=== PATIENT | male | born 1940 ===

== ENCOUNTER 2018-08-31 08:06 | Observation (INO) | payer MEDICAID, OTHER ==
--- NOTE | 2018-08-31 09:07 | ED PDOC ---
Lower Extremity Pain/Injury Time Seen by Provider: 08/31/18 08:25 Chief Complaint (Nursing): Lower Extremity Problem/Injury Chief Complaint (Provider): Lower Extremity Problem/Injury History Per: Patient History/Exam Limitations: no limitations Onset/Duration Of Symptoms: Days (x7) Current Symptoms Are (Timing): Still Present Additional Complaint(s): Patient is a 78 y/o male with a PMHx of asthma who presents to the ED for evaluation of bilateral leg swelling for the past week. Patient states he does not feel pain but reports he has been experiencing a tingling sensation in his feet for a while now. Patient denies recent injury or trauma, travel, hospitalizations, chest pain, SOB, and fever. PCP: None Provided Past Medical History Reviewed: Historical Data, Nursing Documentation, Vital Signs Vital Signs: Last Vital Signs Temp 98.3 F 08/31/18 08:10 Pulse 114 H 08/31/18 08:10 Resp 18 08/31/18 08:10 BP 158/100 H 08/31/18 08:10 Pulse Ox 100 08/31/18 08:10 - Medical History PMH: No Chronic Diseases, Asthma Denies: Chronic Kidney Disease - Surgical History Surgical History: No Surg Hx - Family History Family History: States: Unknown Family Hx - Home Medications Home Medications: Ambulatory Orders Medication Instructions Recorded No Known Home Med 08/31/18 - Allergies Allergies/Adverse Reactions: Allergies Allergy/AdvReac Type Severity Reaction Status Date / Time No Known Allergies Allergy Verified 08/31/18 08:15 Review of Systems ROS Statement: Except As Marked, All Systems Reviewed And Found Negative Constitutional: Negative for: Fever Cardiovascular: Negative for: Chest Pain Respiratory: Negative for: Shortness of Breath Musculoskeletal: Positive for: Other (bilateral leg swelling). Negative for: Foot Pain (but describes a tingling sensation) Physical Exam - Reviewed Nursing Documentation Reviewed: Yes Vital Signs Reviewed: Yes - Physical Exam Appears: Positive for: Non-toxic, No Acute Distress Head Exam: Positive for: ATRAUMATIC, NORMAL INSPECTION, NORMOCEPHALIC Skin: Positive for: Normal Color, Warm, Dry Eye Exam: Positive for: EOMI, Normal appearance, PERRL Neck: Positive for: Normal, Painless ROM, Supple Cardiovascular/Chest: Positive for: Regular Rate, Rhythm. Negative for: Murmur Respiratory: Positive for: Normal Breath Sounds. Negative for: Respiratory Distress Gastrointestinal/Abdominal: Positive for: Normal Exam, Soft. Negative for: Tenderness Back: Positive for: Normal Inspection. Negative for: L CVA Tenderness, R CVA Tenderness, Vertebral Tenderness Extremity: Positive for: Normal ROM, Pedal Edema (below the knee bilaterally), Swelling, Other (old wound scar on center of right oconnell). Negative for: Tenderness (or redness bilaterally on legs and feet) Neurologic/Psych: Positive for: Alert, Oriented. Negative for: Motor/Sensory Deficits - Laboratory Results Result Diagrams: 08/31/18 09:09 08/31/18 09:09 - ECG ECG Rhythm: Positive for: Normal ST Segment, Atrial Fibrillation, Right Bundle Branch Block Interpretation Of Abn EKG: RVR and left axis deviation Rate: 111 O2 Sat by Pulse Oximetry: 100 (RA) Pulse Ox Interpretation: Normal Medical Decision Making Medical Decision Making: Time: 0842 Impression: Bilateral leg swelling. DDx includes but not limited to DVT, dependent edema, and CHF. Plan: EKG BNP BMP CBC CXR Duplex Lower Extremity Vein Bilateral [US] Time: 1019 Extremity US FINDINGS: COMMON FEMORAL VEIN: Right CFV: Unremarkable. Left CFV: Unremarkable. SUPERFICIAL FEMORAL VEIN: Right SFV: Unremarkable. Left SFV: Unremarkable. POPLITEAL VEIN: Right Popliteal: Unremarkable. Left Popliteal: Unremarkable. POSTERIOR TIBIAL VEIN: Right PTV: Unremarkable. Left PTV: Unremarkable. OTHER FINDINGS: None. IMPRESSION: No evidence of deep venous thrombosis in the right or left lower extremity. Time: 1137 CXR FINDINGS: LUNGS: No active pulmonary disease. PLEURA: No significant pleural effusion identified. No pneumothorax apparent. CARDIOVASCULAR: No aortic atherosclerotic calcification present. Cardiomegaly. Mild congestive change. OSSEOUS STRUCTURES: No significant abnormalities. VISUALIZED UPPER ABDOMEN: Normal. OTHER FINDINGS: None. IMPRESSION: Cardiomegaly. No infiltrate. 1300 EKG, Labs, and CXR reviewed. Case discussed with Dr Israel. Impression Afib with RVR, leg swelling, r/o CHF, new onset Afib Scribe Attestation: Documented by Francisco Mccullough, acting as a scribe for Monica Son MD. Provider Scribe Attestation: All medical record entries made by the Scribe were at my direction and personally dictated by me. I have reviewed the chart and agree that the record accurately reflects my personal performance of the history, physical exam, medic al decision making, and the department course for this patient. I have also personally directed, reviewed, and agree with the discharge instructions and disposition. Disposition - Clinical Impression Clinical Impression: Atrial fibrillation with RVR, Leg swelling - Patient ED Disposition Is Patient to be Admitted: Yes Discussed With DrNighat: Elizabeth Israel Counseled Patient/Family Regarding: Studies Performed, Diagnosis - Disposition Disposition Time: 13:00 Condition: FAIR - Pt Status Changed To: Hospital Disposition Of: Observation - POA Present On Arrival: None
[2018-08-31 09:31] LABS: BASO # 0.1 K/uL (0.0-0.2); BASO % 1.3 % (0.0-2.0); EOS # 0.2 K/uL (0.0-0.7); EOS % 3.8 % (0.0-4.0); HEMOGLOBIN 13.5 g/dL (12.0-18.0); LYMPH % 25.6 % (20.0-40.0); MEAN CELL VOLUME 98.3 fl (80.0-94.0); MEAN CORPUSCULAR HEMOGLOBIN 32.6 pg (27.0-31.0); MEAN CORPUSCULAR HGB CONC 33.2 g/dL (33.0-37.0); MEAN PLATELET VOLUME 8.7 fl (7.2-11.7); MONO # 0.5 K/uL (0.0-0.8); MONO % 11.6 % (0.0-10.0); NEUT # 2.4 K/uL (1.8-7.0); NEUT % 57.7 % (50.0-75.0); NRBC % 0.2 % (0.0-0.0); RBC 4.13 Mil/uL (4.40-5.90); RED CELL DISTRIBUTION WIDTH 15.2 % (11.5-14.5); WHITE BLOOD COUNT 4.1 K/uL (4.8-10.8)
[2018-08-31 09:36] LABS: INR 1.4; PROTHROMBIN TIME 16.1 Seconds (9.8-13.1)
[2018-08-31 09:38] LABS: PARTIAL THROMBOPLASTIN TIME 34.3 Seconds (25.6-37.1)
[2018-08-31 09:40] LABS: BLOOD UREA NITROGEN 13 mg/dl (9-20); CALCIUM 9.1 mg/dL (8.4-10.2); GFR NON-AFRICAN AMERICAN > 60
[2018-08-31 09:52] LABS: B-TYPE NATRIURETIC PEPTIDE 939 pg/ml (0-900)
--- NOTE | 2018-08-31 10:04 | CARD ---
APPROVED REPORT Date of service: 08/31/2018 EKG Measurement Heart [id number] <Conclusion> Atrial fibrillation with rapid ventricular response with premature ventricular or aberrantly conducted complexes Left axis deviation Right bundle branch block Abnormal ECG
--- NOTE | 2018-08-31 10:23 | US ---
Date of service: 08/31/2018 PROCEDURE: Bilateral lower extremity venous duplex Doppler. HISTORY: bilateral lower leg swelling R>L COMPARISON: None available. TECHNIQUE: Bilateral common femoral, superficial femoral, popliteal and posterior tibial veins were evaluated. Flow was assessed with color Doppler, compressibility, assessment of phasic flow and augmentation response. FINDINGS: COMMON FEMORAL VEIN: Right CFV: Unremarkable. Left CFV: Unremarkable. SUPERFICIAL FEMORAL VEIN: Right SFV: Unremarkable. Left SFV: Unremarkable. POPLITEAL VEIN: Right Popliteal: Unremarkable. Left Popliteal: Unremarkable. POSTERIOR TIBIAL VEIN: Right PTV: Unremarkable. Left PTV: Unremarkable. OTHER FINDINGS: None. IMPRESSION: No evidence of deep venous thrombosis in the right or left lower extremity..
--- NOTE | 2018-08-31 11:41 | RAD ---
Date of service: 08/31/2018 HISTORY: CHF COMPARISON: No prior. TECHNIQUE: 09/21/2012 FINDINGS: LUNGS: No active pulmonary disease. PLEURA: No significant pleural effusion identified. No pneumothorax apparent. CARDIOVASCULAR: No aortic atherosclerotic calcification present. Cardiomegaly. Mild congestive change. OSSEOUS STRUCTURES: No significant abnormalities. VISUALIZED UPPER ABDOMEN: Normal. OTHER FINDINGS: None. IMPRESSION: Cardiomegaly. No infiltrate.
[2018-08-31] MEDS ORDERED: Metoprolol 1 mg/ml Inj IVP ONE ×2 (12:27→13:59)
[2018-08-31] MEDS ORDERED: Enoxaparin 60 mg Syringe SC STA (12:30)
[2018-08-31] MEDS ORDERED: Enoxaparin 80 mg Syringe SC STA (12:39)
[2018-08-31] MEDS ORDERED: Metoprolol 1 mg/ml Inj ONE ×2 (12:59→13:01)
--- NOTE | 2018-08-31 13:31 | CP.PCM.HP ---
<Sultan Comfort - Last Filed: 08/31/18 14:53> History of Present Illness - History of Present Illness History of Present Illness: Dieudonne Dominguez [id number] Chief complaints: bilateral lower leg swelling HPI: 78 year old male with PMHx asthma presents to emergency department for evaluation of B/L lower leg swelling for 10 days associate tingling sensation of B/L feet for many months. Patient is a poor historian and very difficult to obtain information. Patient admits to have dyspnea with walking for several years now but unable to say how much he can walk before develops shortness of breath. Denies any history of heart problems and denies seeing any doctor since he immigrated from [place] in . As per [facility] record, patient was seen by Dr. Jackson (Personnel Security Assistant) in 2013 but patient does not recall. Patient denies any orthopnea or PND. Denies any chest pain, cough, headache, dizziness, nausea, vomiting, fever or chills. ROS: All 12 systems reviewed and negative except as mentioned above PMD: none PMHx: Asthma Surgery hx: denies Social hx: lives alone. Denies smoking cigarettes, drinking EtOH or using drugs. Family hx: denies any significant family hx Allergies: denies Medications: none ED course: Vitals: BP 158/100, HR 114, RR 18, Temp 98.3, pulse ox 100% CBC, BMP and TSH: unremarkable proBNP: 939 ECG: Afib @111 bpm with RVR, RBBB CXR: cardiomegaly, no infiltrate B/L LE US: neg for DVT echo: pending result Patient received Lopressor 5 mg ivp, lasix 20 mg ivp AND Lovenox 70 mg SC Present on Admission - Present on Admission Any Indicators Present on Admission: No Review of Systems - Review of Systems Review of Systems: All 12 systems reviewed and negative except as mentioned in HPI Past Patient History - Past Social History Smoking Status: Never Smoked - CARDIAC Hx Cardiac Disorders: No - PULMONARY Hx Asthma: Yes - NEUROLOGICAL Hx Neurological Disorder: No - HEENT Hx HEENT Problems: No - RENAL Hx Chronic Kidney Disease: No - ENDOCRINE/METABOLIC Hx Endocrine Disorders: No - HEMATOLOGICAL/ONCOLOGICAL Hx Blood Disorders: No - INTEGUMENTARY Hx Dermatological Problems: No - MUSCULOSKELETAL/RHEUMATOLOGICAL Hx Musculoskeletal Disorders: No - GASTROINTESTINAL Hx Gastrointestinal Disorders: No - GENITOURINARY/GYNECOLOGICAL Hx Genitourinary Disorders: No - PSYCHIATRIC Hx Psychophysiologic Disorder: No Hx Substance Use: No - SURGICAL HISTORY Hx Surgeries: No - ANESTHESIA Hx Anesthesia: No Meds Allergies/Adverse Reactions: Allergies Allergy/AdvReac Type Severity Reaction Status Date / Time No Known Allergies Allergy Verified 08/31/18 08:15 Physical Exam - Constitutional Appears: Non-toxic, No Acute Distress - Head Exam Head Exam: NORMAL INSPECTION - Eye Exam Eye Exam: Normal appearance - ENT Exam ENT Exam: Mucous Membranes Moist, Normal Oropharynx - Neck Exam Neck exam: Positive for: Full Rom, Normal Inspection - Respiratory Exam Respiratory Exam: Clear to Auscultation Bilateral, NORMAL BREATHING PATTERN. absent: Rhonchi, Wheezes - Cardiovascular Exam Cardiovascular Exam: Irregular Rhythm, +S1, +S2 - GI/Abdominal Exam GI & Abdominal Exam: Normal Bowel Sounds, Soft. absent: Tenderness - Extremities Exam Extremities exam: Negative for: calf tenderness Additional comments: B/L lower extremities swelling 2+ with changes in skin color. Has old healing ulcer on right mid oconnell. Faint pedal pulses. No signs of infection. - Back Exam Back exam: NORMAL INSPECTION - Neurological Exam Neurological exam: Alert, Oriented x3 - Psychiatric Exam Psychiatric exam: Normal Affect, Normal Mood - Skin Skin Exam: Dry, Warm Results - Vital Signs Recent Vital Signs: Last Vital Signs Temp 98.3 F 08/31/18 08:10 Pulse 115 H 08/31/18 13:16 Resp 34 H 08/31/18 13:08 BP 133/92 H 08/31/18 13:23 Pulse Ox 95 08/31/18 13:08 - Labs Result Diagrams: 08/31/18 09:09 08/31/18 09:09 Labs: Laboratory Results - last 24 hr 08/31/18 08/31/18 08/31/18 09:08 09:09 09:09 WBC 4.1 L RBC 4.13 L Hgb 13.5 Hct 40.6 MCV 98.3 H MCH 32.6 H MCHC 33.2 RDW 15.2 H Plt Count 184 MPV 8.7 Neut % (Auto) 57.7 Lymph % (Auto) 25.6 [place] % (Auto) 11.6 H Eos % (Auto) 3.8 Baso % (Auto) 1.3 Neut # (Auto) 2.4 Lymph # (Auto) 1.0 Armstrong # (Auto) 0.5 Eos # (Auto) 0.2 Baso # (Auto) 0.1 PT 16.1 H INR 1.4 APTT 34.3 Sodium 139 Potassium 4.3 Chloride 99 Carbon Dioxide 27 Anion Gap 17 BUN 13 Creatinine 0.7 L Est GFR ( Amer) > 60 Est GFR (Non-Af Amer) > 60 Random Glucose 99 Calcium 9.1 Troponin I 0.0330 NT-Pro-B Natriuret Pep 939 H TSH 3rd Generation 08/31/18 11:55 WBC RBC Hgb Hct MCV MCH MCHC RDW Plt Count MPV Neut % (Auto) Lymph % (Auto) [place] % (Auto) Eos % (Auto) Baso % (Auto) Neut # (Auto) Lymph # (Auto) [place] # (Auto) Eos # (Auto) Baso # (Auto) PT INR APTT Sodium Potassium Chloride Carbon Dioxide Anion Gap BUN Creatinine Est GFR ( Amer) Est GFR (Non-Af Amer) Random Glucose Calcium Troponin I NT-Pro-B Natriuret Pep TSH 3rd Generation 3.51 Assessment & Plan - Assessment and Plan (Free Text) Assessment: 78 year old male with PMHx asthma presents to emergency department for evaluation of B/L lower leg swelling for 10 days associate tingling sensation of B/L feet for many months. Patient admits to have dyspnea with walking for several years now but unable to say how much he can walk before develops dyspnea. in the ER, patient is found to have atrial fibrillation w/ RVR and has elevated proBNP. Patient is admitted for acute CHF exacerbation and new onset atrial fibrillation. New onset atrial fibrillation -Admit to tele -Cardiology consult- Dr. Laboy, recs appreciated. -s/p Lopressor 5 mg ivp, lasix 20 mg ivp AND Lovenox 70 mg SC -start Metoprolol 25 mg q8 -c/w Lovenox 70 mg sc Q12hr Acute new onset CHF exacerbation -No prior echo to compare -S/p lasix 20 mg IVP once in ED -c/w Lasix 20 mg IVP qd -f/u echo B/L lower leg edema -US LE: neg for DVT -likely secondary to CHF exacerbation -c/w Lasix 20 mg ivp Asthma, mild intermittent -controlled -Duonex q4h prn Diet -Heart healthy diet DVT Prophylaxis: -patient is on lovenox 70 mg sc q12h for afib Code status -Full code <Elizabeth Israel - Last Filed: 08/31/18 18:53> Results - Vital Signs Recent Vital Signs: Last Vital Signs Temp 97.9 F 08/31/18 16:16 Pulse 99 H 08/31/18 17:58 Resp 18 08/31/18 17:15 BP 130/95 H 08/31/18 17:58 Pulse Ox 96 08/31/18 17:15 - Labs Result Diagrams: 08/31/18 09:09 08/31/18 09:09 Labs: Laboratory Results - last 24 hr 08/31/18 08/31/18 08/31/18 09:08 09:09 09:09 WBC 4.1 L RBC 4.13 L Hgb 13.5 Hct 40.6 MCV 98.3 H MCH 32.6 H MCHC 33.2 RDW 15.2 H Plt Count 184 MPV 8.7 Neut % (Auto) 57.7 Lymph % (Auto) 25.6 Armstrong % (Auto) 11.6 H Eos % (Auto) 3.8 Baso % (Auto) 1.3 Neut # (Auto) 2.4 Lymph # (Auto) 1.0 Armstrong # (Auto) 0.5 Eos # (Auto) 0.2 Baso # (Auto) 0.1 PT 16.1 H INR 1.4 APTT 34.3 Sodium 139 Potassium 4.3 Chloride 99 Carbon Dioxide 27 Anion Gap 17 BUN 13 Creatinine 0.7 L Est GFR ( Amer) > 60 Est GFR (Non-Af Amer) > 60 Random Glucose 99 Calcium 9.1 Troponin I 0.0330 NT-Pro-B Natriuret Pep 939 H TSH 3rd Generation 08/31/18 11:55 WBC RBC Hgb Hct MCV MCH MCHC RDW Plt Count MPV Neut % (Auto) Lymph % (Auto) Armstrong % (Auto) Eos % (Auto) Baso % (Auto) Neut # (Auto) Lymph # (Auto) Armstrong # (Auto) Eos # (Auto) Baso # (Auto) PT INR APTT Sodium Potassium Chloride Carbon Dioxide Anion Gap BUN Creatinine Est GFR ( Amer) Est GFR (Non-Af Amer) Random Glucose Calcium Troponin I NT-Pro-B Natriuret Pep TSH 3rd Generation 3.51 Attending/Attestation - Attestation I have personally seen and examined this patient.: Yes I have fully participated in the care of the patient.: Yes I have reviewed all pertinent clinical information: Yes Notes (Text): 08/31/18 18:45 78 year old male very poor historian, not forthcoming with history presents with a vague history of dyspnea on exertion, as well as "asthma." Patient was found to be in new onset? AFIB, with significant bilateral lower extremity edema. ECHO showed severe cardiomyopathy, Cardio consult ordered, patient being diuresed, fully anticoagulated.
[2018-08-31] MEDS ORDERED: Albuterol 0.083% Inhal Sol (2.5 mg/3 mL) UD INH PRN (15:03)
--- NOTE | 2018-08-31 15:35 | CP.PCM.CON ---
History of Present Illness - History of Present Illness History of Present Illness: PT PRESENTED FOR KAYA. DENIES CP, PALP, LH, SOB, ORTHOPNEA, PND. NOTED TO BE IN RAPID AFIB ON ADMISSION. EXAM REVEALS BIBASILAR CRACKLES AND MULTIPLE SYSTOLIC MURMURS AT LLSB AND APEX. APEX IS DISPLACED LATERALLY AND POSTERIORLY. THERE IS A CONTINUOUS LOW PITCHED MURMUR HEARD AT THE LLSB WELL. 2 PLUS EDEMA. EKG SHOWS AFIB W RVR. Review of Systems - Review of Systems Systems not reviewed;Unavailable: Uncooperative, Language Barrier Past Patient History - Tetanus Immunizations Tetanus Immunization: Unknown - Past Medical History & Family History Past Medical History?: No - Past Social History Smoking Status: Never Smoked - CARDIAC Hx Cardiac Disorders: No - PULMONARY Hx Asthma: Yes - NEUROLOGICAL Hx Neurological Disorder: No - HEENT Hx HEENT Problems: No - RENAL Hx Chronic Kidney Disease: No - ENDOCRINE/METABOLIC Hx Endocrine Disorders: No - HEMATOLOGICAL/ONCOLOGICAL Hx Blood Disorders: No - INTEGUMENTARY Hx Dermatological Problems: No - MUSCULOSKELETAL/RHEUMATOLOGICAL Hx Musculoskeletal Disorders: No - GASTROINTESTINAL Hx Gastrointestinal Disorders: No - GENITOURINARY/GYNECOLOGICAL Hx Genitourinary Disorders: No - PSYCHIATRIC Hx Psychophysiologic Disorder: No Hx Substance Use: No - SURGICAL HISTORY Hx Surgeries: No - ANESTHESIA Hx Anesthesia: No Meds Allergies/Adverse Reactions: Allergies Allergy/AdvReac Type Severity Reaction Status Date / Time No Known Allergies Allergy Verified 08/31/18 08:15 - Medications Medications: Current Medications Enoxaparin Sodium (Lovenox) 70 mg SC Q12 [facility]; Protocol Furosemide (Lasix) 20 mg IVP DAILY [facility] Metoprolol Tartrate (Lopressor) 25 mg PO Q8 [facility] Last Admin: 08/31/18 14:48 Dose: 25 mg Physical Exam - Constitutional Appears: Non-toxic - Head Exam Head Exam: ATRAUMATIC, NORMAL INSPECTION, NORMOCEPHALIC - Eye Exam Eye Exam: EOMI, Normal appearance, PERRL Pupil Exam: NORMAL ACCOMODATION, PERRL - ENT Exam ENT Exam: Mucous Membranes Moist, Normal Exam - Neck Exam Neck exam: Positive for: Normal Inspection - Respiratory Exam Respiratory Exam: Rales - Cardiovascular Exam Cardiovascular Exam: Irregular Rhythm, +S1, +S2, Systolic Murmur - GI/Abdominal Exam GI & Abdominal Exam: Normal Bowel Sounds, Soft. absent: Tenderness - Rectal Exam Rectal Exam: Deferred - Extremities Exam Extremities exam: Positive for: pedal edema - Back Exam Back exam: NORMAL INSPECTION - Neurological Exam Neurological exam: Alert, CN II-XII Intact, Normal Gait, Oriented x3, Reflexes Normal - Psychiatric Exam Psychiatric exam: Normal Affect, Normal Mood - Skin Skin Exam: Dry, Intact, Normal Color, Warm Results - Vital Signs Recent Vital Signs: Last Vital Signs Temp 98.3 F 08/31/18 08:10 Pulse 104 H 08/31/18 14:48 Resp 34 H 08/31/18 13:08 BP 108/86 08/31/18 14:48 Pulse Ox 100 08/31/18 14:16 - Labs Result Diagrams: 08/31/18 09:09 08/31/18 09:09 Labs: Laboratory Results - last 24 hr 08/31/18 08/31/18 08/31/18 09:08 09:09 09:09 WBC 4.1 L RBC 4.13 L Hgb 13.5 Hct 40.6 MCV 98.3 H MCH 32.6 H MCHC 33.2 RDW 15.2 H Plt Count 184 MPV 8.7 Neut % (Auto) 57.7 Lymph % (Auto) 25.6 [place] % (Auto) 11.6 H Eos % (Auto) 3.8 Baso % (Auto) 1.3 Neut # (Auto) 2.4 Lymph # (Auto) 1.0 [place] # (Auto) 0.5 Eos # (Auto) 0.2 Baso # (Auto) 0.1 PT 16.1 H INR 1.4 APTT 34.3 Sodium 139 Potassium 4.3 Chloride 99 Carbon Dioxide 27 Anion Gap 17 BUN 13 Creatinine 0.7 L Est GFR ( Amer) > 60 Est GFR (Non-Af Amer) > 60 Random Glucose 99 Calcium 9.1 Troponin I 0.0330 NT-Pro-B Natriuret Pep 939 H TSH 3rd Generation 08/31/18 11:55 WBC RBC Hgb Hct MCV MCH MCHC RDW Plt Count MPV Neut % (Auto) Lymph % (Auto) [place] % (Auto) Eos % (Auto) Baso % (Auto) Neut # (Auto) Lymph # (Auto) [place] # (Auto) Eos # (Auto) Baso # (Auto) PT INR APTT Sodium Potassium Chloride Carbon Dioxide Anion Gap BUN Creatinine Est GFR ( Amer) Est GFR (Non-Af Amer) Random Glucose Calcium Troponin I NT-Pro-B Natriuret Pep TSH 3rd Generation 3.51 Assessment & Plan (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 BB FOR HR CONTROL. ECHO IMAGES REVIEWED. SEVERE BIATRIAL ENLARGE. SEVERE MR, TR AND MILD AI. ASD WITH LEFT TO RIGHT SHUNT. BUBBLE STUDY POSITIVE. NML EF
[2018-08-31] MEDS ORDERED: Influenza Vaccine (5 YR UP)/PF 60 MCG/0.5 ML SYR IM ONE (16:31)
[2018-08-31] MEDS ORDERED: Pneumococcal 23-Valent Vaccine IM ONE (16:31)
[2018-08-31] MEDS ORDERED: Influenza Vaccine 60 mcg/0.5 mL SYR (4YR UP) IM ONE (16:45)
[2018-08-31] MEDS ORDERED: Metoprolol 1 mg/ml Inj IVP STA (17:29)
--- NOTE | 2018-08-31 20:02 | CARD ---
APPROVED REPORT Date of service: 08/31/2018 EXAM: Two-dimensional and M-mode echocardiogram with Doppler and color Doppler. Other Information Quality : ExcellentRhythm : Atrial Fibrillation INDICATION Congestive Heart Failure 2D DIMENSIONS IVSd1.14 (0.7-1.1cm)LVDd4.50 (3.9-5.9cm) LVOT Diameter1.98 (1.8-2.4cm)PWd1.23 (0.7-1.1cm) IVSs1.46 (0.8-1.2cm)LVDs4.16 (2.5-4.0cm) FS (%) 7.5 %PWs1.17 (0.8-1.2cm) M-Mode DIMENSIONS Left Atrium (MM)8.11 (2.5-4.0cm)IVSd0.89 (0.7-1.1cm) Aortic Root2.71 (2.2-3.7cm)LVDd5.39 (4.0-5.6cm) Aortic Cusp Exc.2.02 (1.5-2.0cm)PWd1.22 (0.7-1.1cm) IVSs1.39 cmFS (%) 23 % LVDs4.17 (2.0-3.8cm)PWs1.32 cm Aortic Valve AoV Peak Odkudhrw290.6cm/sAoV VTI23.9cmAO Peak GR.6mmHg LVOT Peak Bnslcyax08.3cm/sLVOT VTI10.40cmAO Mean GR.4mmHg JULIO (VMAX)1.01sd1LVK (VTI)0.84fi4YV P 1/2 Luui529gt Mitral Valve E/A ratio0.0 TDI E/Lateral E'0.0E/Medial E'0.0 Tricuspid Valve TR Peak [id number]/sRAP [id number] Peak Gr.28mmHg [id number] LEFT VENTRICLE The left ventricle is normal size. There is normal left ventricular wall thickness. The left ventricular systolic function is normal. The estimated ejection fraction is 50-55% No regional wall motion abnormalities noted.. The left ventricular diastolic function cannot be assessed due to underlying atrial fibrillation. No left ventricle thrombus noted on this study. There is no ventricular septal defect visualized. There is no left ventricular aneurysm. There is no mass noted in the left ventricle. RIGHT VENTRICLE The right ventricle is normal size. There is normal right ventricular wall thickness. The right ventricular systolic function is normal. ATRIA The left atrium size is severely dilated. The right atrium size is severely dilated. The interatrial septum has large septum secundum defect, that is demonstraed on color and agitated saline contrast. AORTIC VALVE The aortic valve is normal in structure. Mild to moderate aortic regurgitation is present. There is no aortic valvular stenosis. There is no aortic valvular vegetation. MITRAL VALVE The mitral valve is normal in structure. There is no evidence of mitral valve prolapse. There is no mitral valve stenosis. There is severe eccentric mitral valve regurgitation noted. TRICUSPID VALVE The tricuspid valve is normal in structure. There is severe tricuspid valve regurgitation noted. RVSP is likely underestimated at 33 mm Hg. There is no tricuspid valve prolapse or vegetation. There is no tricuspid valve stenosis. PULMONIC VALVE The pulmonary valve is normal in structure. There is no pulmonic valvular regurgitation. There is no pulmonic valvular stenosis. GREAT VESSELS The aortic root is normal in size. The ascending aorta is normal in size. The pulmonary artery is normal. The IVC is not visualized. PERICARDIAL EFFUSION There is small pericardial effusion. There is no pleural effusion. <Conclusion> The estimated ejection fraction is 50-55% The left ventricular diastolic function cannot be assessed due to underlying atrial fibrillation. The left atrium size is severely dilated. The right atrium size is severely dilated. The interatrial septum has large septum secundum defect, that is demonstraed on color doppler and agitated saline contrast with predominant left to right shunt. Mild to moderate aortic regurgitation is present. There is severe eccentric mitral valve regurgitation noted. There is severe tricuspid valve regurgitation noted. RVSP is likely underestimated at 33 mm Hg. The IVC is not visualized.
[2018-08-31] MEDS: Enoxaparin 80 mg Syringe SC SCH (21:01)
[2018-09-01 05:25] LABS: HEMOGLOBIN 12.8 g/dL (12.0-18.0); MEAN CELL VOLUME 99.5 fl (80.0-94.0); MEAN CORPUSCULAR HEMOGLOBIN 32.6 pg (27.0-31.0); MEAN CORPUSCULAR HGB CONC 32.8 g/dL (33.0-37.0); RBC 3.91 Mil/uL (4.40-5.90); RED CELL DISTRIBUTION WIDTH 15.5 % (11.5-14.5); WHITE BLOOD COUNT 3.8 K/uL (4.8-10.8)
[2018-09-01 05:32] LABS: ALBUMIN 3.7 g/dL (3.5-5.0); ALT/SGPT 31 U/L (21-72); AST/SGOT 35 U/L (17-59); BLOOD UREA NITROGEN 14 mg/dl (9-20); GFR NON-AFRICAN AMERICAN > 60
[2018-09-01] MEDS: Enoxaparin 80 mg Syringe SC SCH (08:32)
--- NOTE | 2018-09-01 10:04 | CP.PCM.PN ---
Subjective - Date & Time of Evaluation Date of Evaluation: 09/01/18 Time of Evaluation: 09:50 - Subjective Subjective: Patient seen and examined this morning. No acute overnight events. Telemetry shows atrial fibrillation with rates in 80-100s. Patient continues to be worried about is legs swelling but unaware of his heart issues. Denies any chest pain, dyspnea, abdominal pain, nausea, vomiting or dizziness. Objective - Vital Signs/Intake and Output Vital Signs (last 24 hours): Temp Pulse Resp BP Pulse Ox 97.7 F 82 18 115/80 97 09/01/18 08:00 09/01/18 08:33 09/01/18 08:00 09/01/18 08:36 09/01/18 08:00 - Medications Medications: Current Medications Enoxaparin Sodium (Lovenox) 70 mg SC Q12 [facility]; Protocol Last Admin: 09/01/18 08:32 Dose: 70 mg Furosemide (Lasix) 40 mg IVP Q12 [facility] Last Admin: 09/01/18 08:36 Dose: 40 mg Lisinopril (Zestril) 20 mg PO DAILY [facility] Last Admin: 09/01/18 08:32 Dose: 20 mg Metoprolol Tartrate (Lopressor) 25 mg PO Q12 [facility] Last Admin: 09/01/18 08:33 Dose: 25 mg - Labs Labs: 09/01/18 04:05 09/01/18 04:05 PT 16.1 Seconds (9.8-13.1) H 08/31/18 09:08 INR 1.4 08/31/18 09:08 APTT 34.3 Seconds (25.6-37.1) 08/31/18 09:08 - Constitutional Appears: No Acute Distress, Older Than Stated Age - Head Exam Head Exam: NORMAL INSPECTION - Eye Exam Eye Exam: Normal appearance - ENT Exam ENT Exam: Mucous Membranes Moist - Neck Exam Neck Exam: Full ROM, Normal Inspection - Respiratory Exam Additional comments: Crackles on B/L lower lung field - Cardiovascular Exam Cardiovascular Exam: Irregular Rhythm, +S1, +S2, Murmur - GI/Abdominal Exam GI & Abdominal Exam: Soft, Normal Bowel Sounds. absent: Tenderness - Extremities Exam Additional comments: B/L lower extremities swelling 2+ with changes in skin color. Has old healing ulcer on right mid oconnell. Faint pedal pulses. No signs of infection. - Neurological Exam Neurological Exam: Alert, Awake - Skin Skin Exam: Dry, Warm Assessment and Plan - Assessment and Plan (Free Text) Assessment: 78 year old male with PMHx asthma presents to emergency department for evaluation of B/L lower leg swelling for 10 days associate tingling sensation of B/L feet for many months. Patient admits to have dyspnea with walking for several years now but unable to say how much he can walk before develops dysp silke. in the ER, patient is found to have atrial fibrillation w/ RVR and has elevated proBNP. Patient is admitted for acute CHF exacerbation and new onset atrial fibrillation. New onset atrial fibrillation -Admit to tele -Cardiology consult- Dr. Laboy, recs appreciated. -s/p Lopressor 5 mg ivp, lasix 20 mg ivp AND Lovenox 70 mg SC in ED -c/w Metoprolol 25 mg q12 -c/w Lisinopril 20 mg po daily -c/w Lovenox 70 mg sc Q12hr Acute new onset CHF exacerbation -No prior echo to compare -Pro BNP: 939 -S/p lasix 20 mg IVP once in ED -c/w Lasix 40 mg IVP q12 -c/w Lisinopril 20 mg po daily -ECHO--conclusion: EF 50-55%. Left atrium is severely dilated. Right atrium is severely dilated. 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 Mild to moderate aortic regurgitation is present. There i severe eccentric mitral valve regurgitation noted. There is severe tricuspid valve regurgitation noted. RVSP is likely underestimated at 33 mm Hg. B/L lower leg edema -US LE: neg for DVT -likely secondary to CHF exacerbation -c/w Lasix 40 mg ivp q12 hrs Asthma, mild intermittent -controlled -Duonex q4h prn Diet -Heart healthy diet DVT Prophylaxis: -patient is on lovenox 70 mg sc q12h for afib Code status -Full code Plan discussed with Dr. Aldridge
[2018-09-01 12:55] LABS: HDL CHOLESTEROL 40 MG/DL (30-70)
[2018-09-01 13:06] LABS: LDL CHOLESTEROL 70 mg/dL (0-129)
--- NOTE | 2018-09-01 15:03 | CP.PCM.DIS ---
Provider - Provider Date of Admission: 08/31/18 12:28 Attending physician: Elizabeth Israel DO Consults: 08/31/18 13:41 Cardiology Consult Stat Comment: Consulting Provider: Kostas Laboy Consulting Physician: Kostas Laboy Reason for Consult: new onset A-fib, cardiomegaly on CXR 08/31/18 18:15 Wound Care [Nursing Referral for Wound Care] Routine Comment: Physician Instructions: Reason For Exam: right lower calf scab Time Spent in preparation of Discharge (in minutes): 30 Diagnosis - Discharge Diagnosis (1) Atrial fibrillation with RVR Status: Acute (2) CHF due to valvular disease Status: Acute (3) ASD secundum Status: Chronic (4) Aortic insufficiency Status: Chronic (5) Biatrial enlargement Status: Chronic (6) Enlarged RV (right ventricle) Status: Chronic (7) Leg swelling Status: Chronic (8) Mitral regurgitation Status: Chronic (9) Tricuspid regurgitation Status: Chronic Hospital Course - Lab Results Lab Results: Most Recent Lab Values WBC 3.8 K/uL (4.8-10.8) L 09/01/18 04:05 RBC 3.91 Mil/uL (4.40-5.90) L 09/01/18 04:05 Hgb 12.8 g/dL (12.0-18.0) 09/01/18 04:05 Hct 38.9 % (35.0-51.0) 09/01/18 04:05 MCV 99.5 fl (80.0-94.0) H 09/01/18 04:05 MCH 32.6 pg (27.0-31.0) H 09/01/18 04:05 MCHC 32.8 g/dL (33.0-37.0) L 09/01/18 04:05 RDW 15.5 % (11.5-14.5) H 09/01/18 04:05 Plt Count 169 K/uL (130-400) 09/01/18 04:05 MPV 8.7 fl (7.2-11.7) 08/31/18 09:09 Neut % (Auto) 57.7 % (50.0-75.0) 08/31/18 09:09 Lymph % (Auto) 25.6 % (20.0-40.0) 08/31/18 09:09 Stone % (Auto) 11.6 % (0.0-10.0) H 08/31/18 09:09 Eos % (Auto) 3.8 % (0.0-4.0) 08/31/18 09:09 Baso % (Auto) 1.3 % (0.0-2.0) 08/31/18 09:09 Neut # (Auto) 2.4 K/uL (1.8-7.0) 08/31/18 09:09 Lymph # (Auto) 1.0 K/uL (1.0-4.3) 08/31/18 09:09 Stone # (Auto) 0.5 K/uL (0.0-0.8) 08/31/18 09:09 Eos # (Auto) 0.2 K/uL (0.0-0.7) 08/31/18 09:09 Baso # (Auto) 0.1 K/uL (0.0-0.2) 08/31/18 09:09 PT 16.1 Seconds (9.8-13.1) H 08/31/18 09:08 INR 1.4 08/31/18 09:08 APTT 34.3 Seconds (25.6-37.1) 08/31/18 09:08 Sodium 138 mmol/l (132-148) 09/01/18 04:05 Potassium 3.7 MMOL/L (3.6-5.0) 09/01/18 04:05 Chloride 95 mmol/L (98-107) L 09/01/18 04:05 Carbon Dioxide 30 mmol/L (22-30) 09/01/18 04:05 Anion Gap 17 (10-20) 09/01/18 04:05 BUN 14 mg/dl (9-20) 09/01/18 04:05 Creatinine 0.9 mg/dl (0.8-1.5) 09/01/18 04:05 Est GFR ( Amer) > 60 09/01/18 04:05 Est GFR (Non-Af Amer) > 60 09/01/18 04:05 Random Glucose 98 mg/dL (75-110) 09/01/18 04:05 Hemoglobin A1c 5.8 % (4.2-6.5) 08/31/18 09:00 Calcium 9.0 mg/dL (8.4-10.2) 09/01/18 04:05 Phosphorus 4.0 mg/dl (2.5-4.5) 09/01/18 04:05 Magnesium 1.7 MG/DL (1.6-2.3) 09/01/18 04:05 Total Bilirubin 1.7 mg/dl (0.2-1.3) H 09/01/18 04:05 AST 35 U/L (17-59) 09/01/18 04:05 ALT 31 U/L (21-72) 09/01/18 04:05 Alkaline Phosphatase 61 U/L (38-126) 09/01/18 04:05 Troponin I 0.0380 ng/mL (0.00-0.120) 08/31/18 21:59 NT-Pro-B Natriuret Pep 939 pg/ml (0-900) H 08/31/18 09:09 Total Protein 7.3 G/DL (6.3-8.2) 09/01/18 04:05 Albumin 3.7 g/dL (3.5-5.0) 09/01/18 04:05 Globulin 3.6 gm/dL (2.2-3.9) 09/01/18 04:05 Albumin/Globulin Ratio 1.0 (1.0-2.1) 09/01/18 04:05 Triglycerides 72 mg/DL (0-149) 09/01/18 12:46 Cholesterol 127 mg/dL (0-199) 09/01/18 12:46 LDL Cholesterol Direct 70 mg/dL (0-129) 09/01/18 12:46 HDL Cholesterol 40 MG/DL (30-70) 09/01/18 12:46 TSH 3rd Generation 3.51 mIU/ML (0.46-4.68) 08/31/18 11:55 - Hospital Course Hospital Course: 78 year old male with PMHx asthma presents to emergency department yesterday for evaluation of B/L lower leg swelling for 10 days associate tingling sensation of B/L feet for many months. Patient admits to have dyspnea with walking for several years now but unable to say how much he can walk before develops dyspnea. in the ER, patient is found to have atrial fibrillation w/ RVR and has elevated proBNP. Patient is admitted for acute CHF exacerbation and new onset atrial fibrillation. This morning, patient continues to report tingling of B/L lower leg. Denies any chest pain, dyspnea, cough or dizziness. Patient's afib rate was controlled with Lopressor 5 mg IVP x 2 and received Metoprolol 25 mg q12. Patient received Lasix 40 mg ivp Q12 hours and leg edema and crackles on lungs improved. Patient is hemodynamically stable to discharge home. Has appointment with Dr. Jain at [facility] on 09/09/18 at 3:20 pm. Patient was given a rx of BMP to check his electrolytes before going to see PMD. Advised to f/u with assistant speech language pathologist in 1 week. -ECHOCARDIOGRAM (08/31/18)-conclusion: EF 50-55%. Left atrium is severely dilated. Right atrium is severely dilated. 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 Mild to moderate aortic regurgitation is present. There i severe eccentric mitral valve regurgitation noted. There is sev ere tricuspid valve regurgitation noted. RVSP is likely underestimated at 33 mm Hg. Discharge Exam - Head Exam Head Exam: NORMAL INSPECTION - Eye Exam Eye Exam: Normal appearance - ENT Exam ENT Exam: Mucous Membranes Moist - Respiratory Exam Respiratory Exam: NORMAL BREATHING PATTERN. absent: Wheezes, Respiratory Distress Additional comments: Faint crackles B/L lower lung - Cardiovascular Exam Cardiovascular Exam: Irregular Rhythm, +S1, +S2, Systolic Murmur - GI/Abdominal Exam GI & Abdominal Exam: Normal Bowel Sounds, Soft. absent: Tenderness - Extremities Exam Additional comments: B/L lower extremities swelling 1+ (improved) with changes in skin color. Has old healing ulcer on right mid oconnell. +pedal pulses. No signs of infection. - Neurological Exam Neurological exam: Alert, Oriented x3 - Psychiatric Exam Psychiatric exam: Normal Affect, Normal Mood - Skin Skin Exam: Dry Discharge Plan - Discharge Medications Prescriptions: Apixaban [Eliquis] 5 mg PO BID #60 tab Furosemide [Lasix] 20 mg PO DAILY #30 tab Gabapentin [Neurontin] 100 mg PO HS #30 capsule Lisinopril [Prinivil] 10 mg PO DAILY #30 tablet Metoprolol Tartrate [Lopressor] 25 mg PO Q12 #60 tab - Follow Up Plan Condition: FAIR Disposition: HOME/ ROUTINE Additional Instructions: Please follow up with [facility] on 09/09/18 at 3:[address] Jain, Check BMP blood work on 09/07/18. Please follow up with [facility] Worker Dr. Laboy in 1 week. Referrals: [facility] [Outside] Kostas Laboy MD [Staff Provider] - Clinical Quality Measures - CQM - Heart Failure Ejection Fraction: 40 % or Greater Left Ventricular Function to be assessed after discharge: No ELLIS Inhibitor Prescribed: Yes Beta-Grace Prescribed: Metoprolol Succinate Angiotensin II Receptor Grace Prescribed: No Contraindication/Reason for not providing: ACEI rx given AnticoagulationTherapy for Atrial Fibrillation/Atrialflutter: Yes Aldosterone Antagonist Prescribed: No Contraindication/Reason for not providing: EF >50 Hydralazine Nitrate Prescribed: No Contraindication/Reason for not providing: EF >50 Implantable Cardioverter Defibrillator Therapy: No Contraindication/Reason for not providing: EF >50 Cardiac Resynchronization Therapy Prescribed: No Contraindication/Reason for not providing: EF >50 Will be discharged to: Home Follow Up Date (must be within 7 days from discharge): 09/09/18 Follow Up Time: 15:20
[2018-09-01 15:57] VITALS: BP 136/86; PULSE 81; RESP 17; TEMP 98; O2SAT 98
== END 2018-09-01 17:40 | disposition home or self-care (01) ==
LOC: H.ER 08:06 → H.ERHOLD 12:28 → H.TEL 15:57
PROVIDERS: ADMIT Student in an Organized Health Care Education/Training Program; ATTEND Student in an Organized Health Care Education/Training Program
DX: I50.33 Acute on chronic diastolic (congestive) heart failure (principal); J45.20 Mild intermittent asthma, uncomplicated; I48.91 Unspecified atrial fibrillation; I08.1 Rheumatic disorders of both mitral and tricuspid valves; G62.9 Polyneuropathy, unspecified
CPT/HCPCS: 36415; 71046; 80048; 80053; 80061; 83036; 83735; 83880; 84100; 84443; 84484; 85025; 85027; 85610; 85730; 90471; 90674; 90732; 93005; 93306; 93970; 96372; 96374; 96375; 96376; 99285; G0378; J1650; J1940

== ENCOUNTER 2018-10-21 15:58 | Observation (INO) | payer OTHER, SELFPAY ==
[2018-10-21 16:02] VITALS: BMI 28.8
[2018-10-21] MEDS ORDERED: Sodium Chloride 0.9% 50 ML IV ONE (17:12)
[2018-10-21] MEDS ORDERED: Iohexol 300 100 ML IJ ONE (17:12)
--- NOTE | 2018-10-21 17:41 | ED PDOC ---
HPI: Abdomen Time Seen by Provider: 10/21/18 16:14 Chief Complaint (Nursing): Abdominal Pain Chief Complaint (Provider): Abdominal Pain History Per: Patient History/Exam Limitations: no limitations Onset/Duration Of Symptoms: Hrs (x3) Current Symptoms Are (Timing): Still Present Additional Complaint(s): 78 y/o male with a PMHx of HTN and Atrial Fibrillation presents to the ED for evaluation of abdominal pain, onset three hours prior to arrival. Patient states he was exercising today when he suddenly developed pain and swelling to the right groin just prior to arrival. Patient notes of having a normal appetite but further states he doesn't eat much in general. Patient reports of having normal bowel movements. Otherwise, patient denies any urinary changes, history of abdominal surgeries, nausea, vomiting, alcohol and drug use. Of note, patient reports of last taking medications when he was hospitalized for Atrial Fibrillation here. PMD: [facility] Past Medical History Reviewed: Historical Data, Nursing Documentation, Vital Signs Vital Signs: Last Vital Signs Temp 98.1 F 10/21/18 16:01 Pulse 115 H 10/21/18 16:01 Resp 20 10/21/18 16:01 BP 122/83 10/21/18 16:01 Pulse Ox 96 10/21/18 16:01 - Medical History PMH: Asthma, Atrial Fibrillation, HTN Denies: HIV, Chronic Kidney Disease - Surgical History Surgical History: No Surg Hx - Family History Family History: States: Unknown Family Hx - Social History Current smoker - smoking cessation education provided: No Alcohol: None Drugs: Denies - Home Medications Home Medications: Ambulatory Orders Medication Instructions Recorded Apixaban [Eliquis] 5 mg PO BID #60 tab 09/01/18 Furosemide [Lasix] 20 mg PO DAILY #30 tab 09/01/18 Gabapentin [Neurontin] 100 mg PO HS #30 capsule 09/01/18 Lisinopril [Prinivil] 10 mg PO DAILY #30 tablet 09/01/18 Metoprolol Tartrate [Lopressor] 25 mg PO Q12 #60 tab 09/01/18 - Allergies Allergies/Adverse Reactions: Allergies Allergy/AdvReac Type Severity Reaction Status Date / Time No Known Allergies Allergy Verified 08/31/18 08:15 Review of Systems ROS Statement: Except As Marked, All Systems Reviewed And Found Negative (as per HPI) Gastrointestinal: Positive for: Abdominal Pain Genitourinary Male: Positive for: Other (right groin pain). Negative for: Dysuria, Frequency, Hematuria Physical Exam - Reviewed Nursing Documentation Reviewed: Yes Vital Signs Reviewed: Yes - Physical Exam Appears: Positive for: In Acute Distress (mild, painful distress) Head Exam: Positive for: ATRAUMATIC, NORMOCEPHALIC Skin: Positive for: Warm, Dry Eye Exam: Positive for: EOMI, PERRL ENT: Negative for: Pharyngeal Erythema, Tonsillar Exudate Neck: Positive for: Painless ROM, Supple Cardiovascular/Chest: Positive for: Regular Rate, Rhythm. Negative for: Murmur Respiratory: Positive for: Normal Breath Sounds. Negative for: Respiratory Distress Gastrointestinal/Abdominal: Positive for: Soft, Tenderness (Right groin (inguinal area) tender mass with moderate firmness) Male Genital Exam: Positive for: normal genitalia (normal external genitalia) Back: Positive for: Normal Inspection. Negative for: Decreased ROM Extremity: Positive for: Normal ROM. Negative for: Deformity Lymphatic: Negative for: Adenopathy Neurological/Psych: Positive for: Awake, Alert. Negative for: Motor/Sensory D eficits - Laboratory Results Result Diagrams: 10/22/18 07:40 10/22/18 07:40 - ECG O2 Sat by Pulse Oximetry: 96 (RA) Pulse Ox Interpretation: Normal Medical Decision Making Medical Decision Making: Time: 1701 Impression: Inguinal Hernia Differentials include but not limited to incarcerated or strangulated hernia Plan: -- Type and Screen -- CT Abd/Pelvis IV Contrast ONLY -- Lact Acid, Plasma -- CBC with Differentials -- PTT -- Prothrombin Time -- Zofan Inj 4 mg IVP -- IV Insertion -- Urinalysis EXAM: CT Abdomen and Pelvis with IV contrast CLINICAL HISTORY: Rt inguinal swelling and pain r/o strangulated TECHNIQUE: Axial computed tomography images of the abdomen and pelvis with intravenous contrast. 431.47 mGy-cm CONTRAST: With; [id number] 95ML COMPARISON: None provided. FINDINGS: LUNG BASES: The lung bases appear clear. No pleural effusions are seen. Marked cardiomegaly is identified. LIVER: Hepatic steatosis is noted. GALLBLADDER AND BILE DUCTS: The gallbladder is normal in size and configuration. A solitary 5.7 mm cholelith is noted. No biliary ductal dilatation is evident. PANCREAS: Unremarkable. SPLEEN: Unremarkable. ADRENAL GLANDS: Unremarkable. KIDNEYS, URETERS, AND BLADDER: Both kidneys are normal in size and position. Bilateral perinephric stranding is noted. This finding can sometimes be compatible with pyelonephritis. There is no hydronephrosis or hydroureter. No urinary calculi are seen. The urinary bladder is normal in size. A couple of adjacent right lateral bladder diverticuli are noted. Subtle perivesical stranding is noted thought compatible with acute cystitis. STOMACH AND BOWEL: Unremarkable appearance of the stomach. No evidence of bowel obstruction. No evidence suggesting enteritis. Pericolonic stranding is seen about the lower descending-upper sigmoid colon thought compatible with acute colitis. APPENDIX: No evidence of acute appendicitis on CT examination. PERITONEUM: No free fluid. No free air. Small bilateral inguinal hernias are noted which each contain fat. The fat within the right inguinal hernia appears increased in density which could indicate some inflammation. No evidence of incarcerated bowel. LYMPH NODES: No lymphadenopathy is evident. REPRODUCTIVE: Unremarkable as visualized. VASCULATURE: No evidence of abdominal aortic aneurysm. BONES: No aggressive appearing osseous lesion. No acute osseous pathology evident. A 6.6 mm sclerotic focus is seen in the left aspect of the L4 vertebral body thought compatible with a bone island. IMPRESSION: 1. Small bilateral inguinal hernias which each contain fat. Fat in the right inguinal hernia appears increased in density which may indicate inflammation. No incarceration of bowel. 2. Evidence of acute cystitis. 2 adjacent right lateral bladder diverticuli are present. 3. Bilateral perinephric stranding may indicate pyelonephritis. 4. A segment of pericolonic stranding is noted in the lower descending-upper s igmoid region thought compatible with acute colitis. 5. A solitary 5.7 mm cholelith is present. 6. Hepatic steatosis. 7. Marked cardiomegaly. Electronically signed on Oct 21, 2018 8:28:34 PM EDT by: Arnaldo Hernandez M.D., INO Certified By [employer] & [employer] Fellowship Trained MRI and CT Specialist Time: 2057 -- Discussed with Dr. Alvarez for admission for multiple intra-abdominal processes. Discussed with patient findings and plan of care. IV Antibiotics initiated. --DW Dr Gimenez president and chief operating officer for consult. -- EKG -- CXR Portable -- Cipro 400mg/200 ml DSW 400 mg in 200 ml IV -- Flagyl 500mg/100 ml NS 100 ml IV -------- 2200 Atrial fib with RVR on EKG. Pt had not taken any meds today. Ordered metoprolol. Scribe Attestation: Documented by Lisa Laguna, acting as a scribe for Jenelle Bee MD. Provider Scribe Attestation: All medical record entries made by the Scribe were at my direction and personally dictated by me. I have reviewed the chart and agree that the record accurately reflects my personal performance of the history, physical exam, medical decision making, and the department course for this patient. I have also personally directed, reviewed, and agree with the discharge instructions and disposition. Disposition - Clinical Impression Clinical Impression: Hernia, inguinal, right, Colitis, Atrial fibrillation - Patient ED Disposition Is Patient to be Admitted: Yes Counseled Patient/Family Regarding: Studies Performed, Diagnosis - Disposition Disposition Time: 20:58 Condition: FAIR - Pt Status Changed To: Hospital Disposition Of: Inpatient - Admit Certification Admit to Inpatient:: After my assessment, the patient will require hospitalization for at least two midnights. This is because of the severity of symptoms shown, intensity of services needed, and/or the medical risk in this patient being treated as an outpatient. - POA Present On Arrival: None
[2018-10-21 18:04] LABS: INR 1.3; PROTHROMBIN TIME 14.9 Seconds (9.8-13.1)
[2018-10-21 18:07] LABS: PARTIAL THROMBOPLASTIN TIME 32.6 Seconds (25.6-37.1)
[2018-10-21 18:09] LABS: SQUAMOUS EPITHIAL < 1 /hpf (0-5); URINE BILIRUBIN NEGATIVE (NEGATIVE); URINE BLOOD SMALL (NEGATIVE); URINE CLARITY SLIGHTY-CLOUDY (Clear); URINE COLOR YELLOW (YELLOW); URINE GLUCOSE (UA) NEG (NEGATIVE); URINE LEUKOCYTE ESTERASE NEG Leu/uL (Negative); URINE PROTEIN NEGATIVE (NEGATIVE)
[2018-10-21 18:33] LABS: BASO % 0.6 % (0.0-2.0); EOS % 0.4 % (0.0-4.0); HEMOGLOBIN 12.4 g/dL (12.0-18.0); LYMPH # 0.4 K/uL (1.0-4.3); LYMPH % 8.9 % (20.0-40.0); MEAN CELL VOLUME 98.6 fl (80.0-94.0); MEAN CORPUSCULAR HEMOGLOBIN 33.3 pg (27.0-31.0); MEAN CORPUSCULAR HGB CONC 33.7 g/dL (33.0-37.0); MEAN PLATELET VOLUME 8.5 fl (7.2-11.7); MONO # 0.2 K/uL (0.0-0.8); MONO % 4.8 % (0.0-10.0); NEUT # 3.8 K/uL (1.8-7.0); NEUT % 85.3 % (50.0-75.0); NRBC % 0.2 % (0.0-0.0); PLATELET COUNT 187 K/uL (130-400); RBC 3.73 Mil/uL (4.40-5.90); WHITE BLOOD COUNT 4.4 K/uL (4.8-10.8)
[2018-10-21 19:08] LABS: ALBUMIN 3.9 g/dL (3.5-5.0); ALT/SGPT 29 U/L (21-72); AST/SGOT 40 U/L (17-59); BLOOD UREA NITROGEN 16 mg/dl (9-20); CALCIUM 9.3 mg/dL (8.4-10.2); GFR NON-AFRICAN AMERICAN > 60
[2018-10-21 20:48] LABS: BANDS 2 % (0-2); BASOPHIL 1 % (0-2); LYMPHOCYTE 10 % (20-50); MONOCYTE 7 % (0-10); NEUTROPHIL 80 % (42-75); PLATELET ESTIMATE NORMAL (NORMAL); TOTAL CELLS COUNTED 100
[2018-10-21 20:49] LABS: ANISOCYTOSIS SLIGHT
[2018-10-21] MEDS ORDERED: metroNIDAZOLE 500mg/100ml NS 100 ML IV STA (20:56)
[2018-10-21] MEDS ORDERED: Ciprofloxacin 400mg/200ml D5W 400 MG/200 ML BAG IV STA (20:56)
[2018-10-21] MEDS ORDERED: Morphine 4 MG/ML VIAL IVP STA (21:21)
[2018-10-21] MEDS ORDERED: Morphine 4 MG/ML VIAL ONE (21:47)
[2018-10-21] MEDS ORDERED: metroNIDAZOLE 500mg/100ml NS 100 ML IVPB ONE (21:48)
[2018-10-21] MEDS ORDERED: Oxycodone/Acetaminophen 5/325 mg Tab PO PRN (21:55)
--- NOTE | 2018-10-21 22:00 | CP.PCM.CON ---
<Dagoberto Gimenez - Last Filed: 10/22/18 08:32> History of Present Illness - History of Present Illness History of Present Illness: 78M with PMHx of Afib, dilated cardiomyopathy, asthma, presents to ED with complaints of abdominal pain. General surgery consulted for right inguinal hernia. Patient states he was exercising this afternoon and pain in right groin was illicited after he tried lifting two 10lb dumbbells to exercise with. Patient denies any nausea/vomiting. Reports passing flatus. States right groin pain has improved since analgesics were administered. He denies fever/chills, chest pain, shortness of breath. Reports dysuria. PMHx: as stated above PSurgHx: denies All: NKDA Review of Systems - Review of Systems All systems: reviewed and no additional remarkable complaints except Review of Systems: negative except as stated in HPI Past Patient History - Tetanus Immunizations Tetanus Immunization: Unknown - Past Medical History & Family History Past Medical History?: No - Past Social History Alcohol: None Drugs: Denies - CARDIAC Hx Atrial Fibrillation: Yes Hx Hypertension: Yes - PULMONARY Hx Asthma: Yes - NEUROLOGICAL Hx Neurological Disorder: No - HEENT Hx HEENT Problems: No - RENAL Hx Chronic Kidney Disease: No - ENDOCRINE/METABOLIC Hx Endocrine Disorders: No - HEMATOLOGICAL/ONCOLOGICAL Hx Human Immunodeficiency Virus (HIV): No - INTEGUMENTARY Hx Dermatological Problems: No - MUSCULOSKELETAL/RHEUMATOLOGICAL Hx Musculoskeletal Disorders: No - GASTROINTESTINAL Hx Gastrointestinal Disorders: No - GENITOURINARY/GYNECOLOGICAL Hx Genitourinary Disorders: No - PSYCHIATRIC Hx Psychophysiologic Disorder: No Hx Substance Use: No - SURGICAL HISTORY Hx Surgeries: No - ANESTHESIA Hx Anesthesia: No Meds Allergies/Adverse Reactions: Allergies Allergy/AdvReac Type Severity Reaction Status Date / Time No Known Allergies Allergy Verified 08/31/18 08:15 - Medications Medications: Current Medications Morphine Sulfate (Morphine) 4 mg IVP Q4 PRN PRN Reason: Pain, severe (8-10) Oxycodone/Acetaminophen (Percocet 5/325 Mg Tab) 1 tab PO Q4 PRN PRN Reason: Pain, moderate (4-7) Stop: 10/24/18 21:56 Physical Exam - Constitutional Appears: No Acute Distress - Head Exam Head Exam: NORMOCEPHALIC - Eye Exam Eye Exam: EOMI, Normal appearance - ENT Exam ENT Exam: Mucous Membranes Moist - Respiratory Exam Respiratory Exam: NORMAL BREATHING PATTERN - Cardiovascular Exam Cardiovascular Exam: +S1, +S2 - GI/Abdominal Exam GI & Abdominal Exam: Soft, Tenderness Additional comments: b/l fat containing inguinal hernias Right groin tenderness alleviated with pain medication - Neurological Exam Neurological exam: Alert, Oriented x3 - Psychiatric Exam Psychiatric exam: Normal Mood - Skin Skin Exam: Dry, Intact, Warm Results - Vital Signs Recent Vital Signs: Last Vital Signs Temp 98.1 F 10/21/18 16:01 Pulse 115 H 10/21/18 16:01 Resp 20 10/21/18 16:01 BP 122/83 10/21/18 16:01 Pulse Ox 96 10/21/18 21:00 - Labs Result Diagrams: 10/21/18 17:55 10/21/18 17:30 Labs: Laboratory Results - last 24 hr 10/21/18 10/21/18 10/21/18 17:30 17:30 17:30 WBC RBC Hgb Hct MCV MCH MCHC RDW Plt Count MPV Neut % (Auto) Lymph % (Auto) Pine % (Auto) Eos % (Auto) Baso % (Auto) Neut # (Auto) Lymph # (Auto) Pine # (Auto) Eos # (Auto) Baso # (Auto) Neutrophils % (Manual) Band Neutrophils % Lymphocytes % (Manual) Monocytes % (Manual) Basophils % (Manual) Platelet Estimate Anisocytosis (manual) Macrocytosis (manual) PT 14.9 H INR 1.3 APTT 32.6 Sodium 136 Potassium 4.2 Chloride 96 L Carbon Dioxide 30 Anion Gap 14 BUN 16 Creatinine 0.8 Est GFR ( Amer) > 60 Est GFR (Non-Af Amer) > 60 Random Glucose 120 H Lactic Acid 1.4 Calcium 9.3 Total Bilirubin 1.3 AST 40 ALT 29 Alkaline Phosphatase 66 Total Protein 7.8 Albumin 3.9 Globulin 3.9 Albumin/Globulin Ratio 1.0 Urine Color Urine Clarity Urine pH Ur Specific [place] Urine Protein Urine Glucose (UA) Urine Ketones Urine Blood Urine Nitrate Urine Bilirubin Urine Urobilinogen Ur Leukocyte Esterase Urine Microscopic WBC Ur Squamous Epith Cells Blood Type Antibody Screen BBK History Checked 10/21/18 10/21/18 10/21/18 17:30 17:30 17:55 WBC 4.4 L RBC 3.73 L Hgb 12.4 Hct 36.8 MCV 98.6 H MCH 33.3 H MCHC 33.7 RDW 14.0 Plt Count 187 MPV 8.5 Neut % (Auto) 85.3 H Lymph % (Auto) 8.9 L Pine % (Auto) 4.8 Eos % (Auto) 0.4 Baso % (Auto) 0.6 Neut # (Auto) 3.8 Lymph # (Auto) 0.4 L [place] # (Auto) 0.2 Eos # (Auto) 0.0 Baso # (Auto) 0.0 Neutrophils % (Manual) 80 H Band Neutrophils % 2 Lymphocytes % (Manual) 10 L Monocytes % (Manual) 7 Basophils % (Manual) 1 Platelet Estimate Normal Anisocytosis (manual) Slight Macrocytosis (manual) Slight PT INR APTT Sodium Potassium Chloride Carbon Dioxide Anion Gap BUN Creatinine Est GFR ( Amer) Est GFR (Non-Af Amer) Random Glucose Lactic Acid Calcium Total Bilirubin AST ALT Alkaline Phosphatase Total Protein Albumin Globulin Albumin/Globulin Ratio Urine Color Yellow Urine Clarity Slighty-cloudy Urine pH 6.0 Ur Specific [place] 1.012 Urine Protein Negative Urine Glucose (UA) Neg Urine Ketones Trace Urine Blood Small Urine Nitrate Negative Urine Bilirubin Negative Urine Urobilinogen 4.0 Ur Leukocyte Esterase Neg Urine Microscopic WBC 2 Ur Squamous Epith Cells < 1 Blood Type A POSITIVE Antibody Screen Negative BBK History Checked No verified bt - Imaging and Cardiology CT scan - abdomen Status: Image reviewed by me, Report reviewed by me Assessment & Plan - Assessment and Plan (Free Text) Assessment: 78M with b/l fat containing inguinal hernias Plan: -Patient is not obstructed -Conservative management for now -Patient is passing flatus, no nausea/vomiting, ok to start liquid diet and advance as tolerated -Analgesics prn -Anti-emetics prn -Medical management per primary team -May follow up in office upon discharge for elective inguinal hernia repair -D/w Dr. Evan Steele PGY3 <Dilip Gordon - Last Filed: 10/22/18 18:33> Results - Vital Signs Recent Vital Signs: Last Vital Signs Temp 97.9 F 10/22/18 07:51 Pulse 89 10/22/18 09:13 Resp 20 10/22/18 07:51 BP 113/77 10/22/18 09:13 Pulse Ox 96 10/22/18 07:51 - Labs Result Diagrams: 10/22/18 07:40 10/22/18 07:40 Labs: Laboratory Results - last 24 hr 10/21/18 10/21/18 10/21/18 17:30 17:30 17:30 WBC RBC Hgb Hct MCV MCH MCHC RDW Plt Count MPV Neut % (Auto) Lymph % (Auto) Pine % (Auto) Eos % (Auto) Baso % (Auto) Neut # (Auto) Lymph # (Auto) Pine # (Auto) Eos # (Auto) Baso # (Auto) Neutrophils % (Manual) Band Neutrophils % Lymphocytes % (Manual) Monocytes % (Manual) Basophils % (Manual) Platelet Estimate Anisocytosis (manual) Macrocytosis (manual) Sodium 136 Potassium 4.2 Chloride 96 L Carbon Dioxide 30 Anion Gap 14 BUN 16 Creatinine 0.8 Est GFR ( Amer) > 60 Est GFR (Non-Af Amer) > 60 Random Glucose 120 H Lactic Acid 1.4 Calcium 9.3 Total Bilirubin 1.3 AST 40 ALT 29 Alkaline Phosphatase 66 Total Protein 7.8 Albumin 3.9 Globulin 3.9 Albumin/Globulin Ratio 1.0 Blood Type A POSITIVE Blood Type Confirm Antibody Screen Negative BBK History Checked No verified bt 10/21/18 10/22/18 10/22/18 17:55 07:40 07:40 WBC 4.4 L 4.5 L RBC 3.73 L 3.97 L Hgb 12.4 13.3 Hct 36.8 39.4 MCV 98.6 H 99.3 H MCH 33.3 H 33.4 H MCHC 33.7 33.6 RDW 14.0 14.5 Plt Count 187 166 MPV 8.5 Neut % (Auto) 85.3 H Lymph % (Auto) 8.9 L [place] % (Auto) 4.8 Eos % (Auto) 0.4 Baso % (Auto) 0.6 Neut # (Auto) 3.8 Lymph # (Auto) 0.4 L [place] # (Auto) 0.2 Eos # (Auto) 0.0 Baso # (Auto) 0.0 Neutrophils % (Manual) 80 H Band Neutrophils % 2 Lymphocytes % (Manual) 10 L Monocytes % (Manual) 7 Basophils % (Manual) 1 Platelet Estimate Normal Anisocytosis (manual) Slight Macrocytosis (manual) Slight Sodium Potassium Chloride Carbon Dioxide Anion Gap BUN Creatinine Est GFR ( Amer) Est GFR (Non-Af Amer) Random Glucose Lactic Acid Calcium Total Bilirubin AST ALT Alkaline Phosphatase Total Protein Albumin Globulin Albumin/Globulin Ratio Blood Type Blood Type Confirm A POSITIVE Antibody Screen BBK History Checked 10/22/18 07:40 WBC RBC Hgb Hct MCV MCH MCHC RDW Plt Count MPV Neut % (Auto) Lymph % (Auto) Pine % (Auto) Eos % (Auto) Baso % (Auto) Neut # (Auto) Lymph # (Auto) Pine # (Auto) Eos # (Auto) Baso # (Auto) Neutrophils % (Manual) Band Neutrophils % Lymphocytes % (Manual) Monocytes % (Manual) Basophils % (Manual) Platelet Estimate Anisocytosis (manual) Macrocytosis (manual) Sodium 136 Potassium 3.7 Chloride 100 Carbon Dioxide 27 Anion Gap 13 BUN 12 Creatinine 0.7 L Est GFR ( Amer) > 60 Est GFR (Non-Af Amer) > 60 Random Glucose 93 Lactic Acid Calcium 9.4 Total Bilirubin AST ALT Alkaline Phosphatase Total Protein Albumin Globulin Albumin/Globulin Ratio Blood Type Blood Type Confirm Antibody Screen BBK History Checked Assessment & Plan - Assessment and Plan (Free Text) Plan: 78yo M presented to ED for evaluation of right groin pain and swelling which started after he lifted 10lb weights. Pt also reports intermittent right groin discomfort. Pt has a hx of afib on eliquis and cardiomyopathy. gen: awake, alert, NAD HEENT: NC/AT, EOMI, PERRLA no acute respiratory distress abd: soft, NT, ND, no peritoneal signs right groin: +right inguinal hernia, reducible, +tenderness left groin: small inguinal hernia, no tenderness 78yo M with right groin pain likely secondary to right inguinal hernia -CT scan reviewed no evidence of incarceration or strangulation -pt does have fat containing inguinal hernias -give that pt is symptomatic, would advise hernias be repaired electively -pt will need cardiac evaluation and clearance, ELiquis would also need to be help prior to procedure -d/w patient regarding elective repair, pt agrees and states he will follow up in office -no acute intervention, surgically stable for dc
[2018-10-21] MEDS ORDERED: Metoprolol 1 mg/ml Inj IVP STA (22:25)
[2018-10-21] MEDS ORDERED: Metoprolol 1 mg/ml Inj ONE (22:50)
--- NOTE | 2018-10-21 22:57 | CP.PCM.HP ---
<Girish Jain - Last Filed: 10/22/18 01:48> History of Present Illness - History of Present Illness History of Present Illness: 78 y/o M with a PMHx of A-Fib and CHF presented to ED complaining of lower abdominal pain. Pt explains that he was exercising at home ~3pm, lifting two 10lbs dumbbells when suddenly a lower abdomen pain began, 10/10 intensity, radiated to b/l testicular, described as dull aggravated with sitting up. Pt also reports burning pain with urination since abdominal pain began. Pt passing gasses. Pt denies fever, chills, headache, chest pain, SOB, nausea, vomiting, diarrhea or flank pain. PMD: [facility] NKDA Meds: Metoprolol 25mg PO Q12H, Eliquis 5mg PO BID, Lisinopril 10mg PO daily, Lasix 20mg PO daily, Gabapentin 100 PO HS. -PMHx: Atrial Fibrillation, CHF due to valvular disease, ASD secundum, Mitral and Tricuspid regurgitation. -PSHx: denied -SHx: Pt denies smoking Hx, alcohol or rec drugs. Pt lives alone, able to walk and finish house chores. ED Course: --VS WNL except for HR 115. --CBC showed leukopenia, CMP unremarkable. --Lactic acid 1.4-wnl. --U/A unremarkable, no nitrates, no leuko esterase. --CT Abdomen: small b/l inguinal hernias, R inguinal hernia with inflammation, acute cystitis, pyelonephritis, acute colitis. --IV Metoprolol, Iv Ciprofloxacin, IV Metronidazole and IV Morphine were administered. Present on Admission - Present on Admission Any Indicators Present on Admission: No Review of Systems - Constitutional Constitutional: absent: Anorexia, Chills, Fever - EENT Eyes: absent: Change in Vision Nose/Mouth/Throat: absent: Nasal Congestion, Nasal Obstruction, Sore Throat, Nec k Pain, Neck Mass - Cardiovascular Cardiovascular: absent: Chest Pain, Dyspnea - Respiratory Respiratory: absent: Cough, Dyspnea, Hemoptysis - Gastrointestinal Gastrointestinal: Abdominal Pain. absent: Diarrhea, Hematemesis, Nausea, Vomiting - Genitourinary Genitourinary: Dysuria. absent: Flank Pain, Hematuria, Pyuria Past Patient History - Tetanus Immunizations Tetanus Immunization: Unknown - Past Medical History & Family History Past Medical History?: No - Past Social History Alcohol: None Drugs: Denies - CARDIAC Hx Atrial Fibrillation: Yes Hx Hypertension: Yes - PULMONARY Hx Asthma: Yes - NEUROLOGICAL Hx Neurological Disorder: No - HEENT Hx HEENT Problems: No - RENAL Hx Chronic Kidney Disease: No - ENDOCRINE/METABOLIC Hx Endocrine Disorders: No - HEMATOLOGICAL/ONCOLOGICAL Hx Human Immunodeficiency Virus (HIV): No - INTEGUMENTARY Hx Dermatological Problems: No - MUSCULOSKELETAL/RHEUMATOLOGICAL Hx Musculoskeletal Disorders: No - GASTROINTESTINAL Hx Gastrointestinal Disorders: No - GENITOURINARY/GYNECOLOGICAL Hx Genitourinary Disorders: No - PSYCHIATRIC Hx Psychophysiologic Disorder: No Hx Substance Use: No - SURGICAL HISTORY Hx Surgeries: No - ANESTHESIA Hx Anesthesia: No Meds Allergies/Adverse Reactions: Allergies Allergy/AdvReac Type Severity Reaction Status Date / Time No Known Allergies Allergy Verified 08/31/18 08:15 Physical Exam - Constitutional Appears: No Acute Distress - Head Exam Head Exam: ATRAUMATIC, NORMAL INSPECTION - Eye Exam Eye Exam: EOMI - ENT Exam ENT Exam: Mucous Membranes Moist - Neck Exam Neck exam: Positive for: Full Rom, Normal Inspection. Negative for: Lymphadenopathy - Respiratory Exam Respiratory Exam: NORMAL BREATHING PATTERN. absent: Rhonchi, Wheezes, Respiratory Distress - Cardiovascular Exam Cardiovascular Exam: Tachycardia, +S1, +S2 - GI/Abdominal Exam GI & Abdominal Exam: Soft, Tenderness (over R lower quadrant and R inguinal areas.). absent: Distended, Guarding, Rebound, Rigid - Exam Exam: NORMAL INSPECTION. absent: Scrotal Swelling, Testicular Tenderness - Extremities Exam Extremities exam: Positive for: full ROM, pedal edema. Negative for: calf tenderness - Neurological Exam Neurological exam: Alert, Oriented x3 Results - Vital Signs Recent Vital Signs: Last Vital Signs Temp 98.1 F 10/21/18 16:01 Pulse 115 H 10/21/18 16:01 Resp 20 10/21/18 16:01 BP 122/83 10/21/18 16:01 Pulse Ox 96 10/21/18 21:00 - Labs Result Diagrams: 10/21/18 17:55 10/21/18 17:30 Labs: Laboratory Results - last 24 hr 10/21/18 10/21/18 10/21/18 17:30 17:30 17:30 WBC RBC Hgb Hct MCV MCH MCHC RDW Plt Count MPV Neut % (Auto) Lymph % (Auto) [place] % (Auto) Eos % (Auto) Baso % (Auto) Neut # (Auto) Lymph # (Auto) [place] # (Auto) Eos # (Auto) Baso # (Auto) Neutrophils % (Manual) Band Neutrophils % Lymphocytes % (Manual) Monocytes % (Manual) Basophils % (Manual) Platelet Estimate Anisocytosis (manual) Macrocytosis (manual) PT 14.9 H INR 1.3 APTT 32.6 Sodium 136 Potassium 4.2 Chloride 96 L Carbon Dioxide 30 Anion Gap 14 BUN 16 Creatinine 0.8 Est GFR ( Amer) > 60 Est GFR (Non-Af Amer) > 60 Random Glucose 120 H Lactic Acid 1.4 Calcium 9.3 Total Bilirubin 1.3 AST 40 ALT 29 Alkaline Phosphatase 66 Total Protein 7.8 Albumin 3.9 Globulin 3.9 Albumin/Globulin Ratio 1.0 Urine Color Urine Clarity Urine pH Ur Specific [place] Urine Protein Urine Glucose (UA) Urine Ketones Urine Blood Urine Nitrate Urine Bilirubin Urine Urobilinogen Ur Leukocyte Esterase Urine Microscopic WBC Ur Squamous Epith Cells Blood Type Antibody Screen BBK History Checked 10/21/18 10/21/18 10/21/18 17:30 17:30 17:55 WBC 4.4 L RBC 3.73 L Hgb 12.4 Hct 36.8 MCV 98.6 H MCH 33.3 H MCHC 33.7 RDW 14.0 Plt Count 187 MPV 8.5 Neut % (Auto) 85.3 H Lymph % (Auto) 8.9 L [place] % (Auto) 4.8 Eos % (Auto) 0.4 Baso % (Auto) 0.6 Neut # (Auto) 3.8 Lymph # (Auto) 0.4 L [place] # (Auto) 0.2 Eos # (Auto) 0.0 Baso # (Auto) 0.0 Neutrophils % (Manual) 80 H Band Neutrophils % 2 Lymphocytes % (Manual) 10 L Monocytes % (Manual) 7 Basophils % (Manual) 1 Platelet Estimate Normal Anisocytosis (manual) Slight Macrocytosis (manual) Slight PT INR APTT Sodium Potassium Chloride Carbon Dioxide Anion Gap BUN Creatinine Est GFR ( Amer) Est GFR (Non-Af Amer) Random Glucose Lactic Acid Calcium Total Bilirubin AST ALT Alkaline Phosphatase Total Protein Albumin Globulin Albumin/Globulin Ratio Urine Color Yellow Urine Clarity Slighty-cloudy Urine pH 6.0 Ur Specific [place] 1.012 Urine Protein Negative Urine Glucose (UA) Neg Urine Ketones Trace Urine Blood Small Urine Nitrate Negative Urine Bilirubin Negative Urine Urobilinogen 4.0 Ur Leukocyte Esterase Neg Urine Microscopic WBC 2 Ur Squamous Epith Cells < 1 Blood Type A POSITIVE Antibody Screen Negative BBK History Checked No verified bt Assessment & Plan - Assessment and Plan (Free Text) Assessment: 78 y/o M with a PMHx of A-Fib, asthma and CHF is admitted for evaluation and management of bilateral inguinal hernia, acute cystitis and colitis. --Lactic acid 1.4-wnl. --U/A unremarkable, no nitrates, no leuko esterase. --CT Abdomen: small b/l inguinal hernias, R inguinal hernia with inflammation, acute cystitis, pyelonephritis, acute colitis. PLAN: >Bilateral fat containing inguinal hernias/Right LLQ and pelvic pain --Afebrile, leukopenia. --General Surgery consult, Dr South --Pain management as ordered. >Acute cystitis and colitis. --Afebrile, leukopenia. --Lactic acid 1.4-wnl. --U/A unremarkable, no nitrates, no leuko esterase. --F/U Blood culture. --IV Ceftriaxone and Metronidazole initiated. --pro-calcitonin ordered. --F/U CT Abdomen final report. >Atrial fibrillation --Chronic, diagnosed last month. --Home meds resumed. >Chronic Heart Failure due to valvular disease. --Home meds resumed --ECHOCARDIOGRAM (08/31/18): EF 50-55%. Left atrium is severely dilated. Right atrium is severely dilated. 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 Mild to moderate aortic regurgitation is present. There i severe eccentric mitral valve regurgitation noted. There is severe tricuspid valve regurgitation noted. RVSP is likely underestimated at 33 mm Hg. >Asthma, mild intermittent -Chronic and controlled >DVT Prophylaxis: -patient is on lovenox 70 mg sc q12h for afib >Code status -Full code Case discussed with Dr Antonio Jain PGY-2 - Date & Time Date: 10/21/18 Time: 21:57 <Stone Alvarez - Last Filed: 10/22/18 04:02> Results - Vital Signs Recent Vital Signs: Last Vital Signs Temp 97.7 F 10/22/18 01:19 Pulse 90 10/22/18 01:19 Resp 20 10/22/18 01:19 BP 123/82 10/22/18 01:19 Pulse Ox 97 10/22/18 01:19 - Labs Result Diagrams: 10/21/18 17:55 10/21/18 17:30 Labs: Laboratory Results - last 24 hr 10/21/18 10/21/18 10/21/18 17:30 17:30 17:30 WBC RBC Hgb Hct MCV MCH MCHC RDW Plt Count MPV Neut % (Auto) Lymph % (Auto) [place] % (Auto) Eos % (Auto) Baso % (Auto) Neut # (Auto) Lymph # (Auto) [place] # (Auto) Eos # (Auto) Baso # (Auto) Neutrophils % (Manual) Band Neutrophils % Lymphocytes % (Manual) Monocytes % (Manual) Basophils % (Manual) Platelet Estimate Anisocytosis (manual) Macrocytosis (manual) PT 14.9 H INR 1.3 APTT 32.6 Sodium 136 Potassium 4.2 Chloride 96 L Carbon Dioxide 30 Anion Gap 14 BUN 16 Creatinine 0.8 Est GFR ( Amer) > 60 Est GFR (Non-Af Amer) > 60 Random Glucose 120 H Lactic Acid 1.4 Calcium 9.3 Total Bilirubin 1.3 AST 40 ALT 29 Alkaline Phosphatase 66 Total Protein 7.8 Albumin 3.9 Globulin 3.9 Albumin/Globulin Ratio 1.0 Urine Color Urine Clarity Urine pH Ur Specific [place] Urine Protein Urine Glucose (UA) Urine Ketones Urine Blood Urine Nitrate Urine Bilirubin Urine Urobilinogen Ur Leukocyte Esterase Urine Microscopic WBC Ur Squamous Epith Cells Blood Type Antibody Screen BBK History Checked 10/21/18 10/21/18 10/21/18 17:30 17:30 17:55 WBC 4.4 L RBC 3.73 L Hgb 12.4 Hct 36.8 MCV 98.6 H MCH 33.3 H MCHC 33.7 RDW 14.0 Plt Count 187 MPV 8.5 Neut % (Auto) 85.3 H Lymph % (Auto) 8.9 L [place] % (Auto) 4.8 Eos % (Auto) 0.4 Baso % (Auto) 0.6 Neut # (Auto) 3.8 Lymph # (Auto) 0.4 L [place] # (Auto) 0.2 Eos # (Auto) 0.0 Baso # (Auto) 0.0 Neutrophils % (Manual) 80 H Band Neutrophils % 2 Lymphocytes % (Manual) 10 L Monocytes % (Manual) 7 Basophils % (Manual) 1 Platelet Estimate Normal Anisocytosis (manual) Slight Macrocytosis (manual) Slight PT INR APTT Sodium Potassium Chloride Carbon Dioxide Anion Gap BUN Creatinine Est GFR ( Amer) Est GFR (Non-Af Amer) Random Glucose Lactic Acid Calcium Total Bilirubin AST ALT Alkaline Phosphatase Total Protein Albumin Globulin Albumin/Globulin Ratio Urine Color Yellow Urine Clarity Slighty-cloudy Urine pH 6.0 Ur Specific [place] 1.012 Urine Protein Negative Urine Glucose (UA) Neg Urine Ketones Trace Urine Blood Small Urine Nitrate Negative Urine Bilirubin Negative Urine Urobilinogen 4.0 Ur Leukocyte Esterase Neg Urine Microscopic WBC 2 Ur Squamous Epith Cells < 1 Blood Type A POSITIVE Antibody Screen Negative BBK History Checked No verified bt Attending/Attestation - Attestation I have personally seen and examined this patient.: Yes I have fully participated in the care of the patient.: Yes I have reviewed all pertinent clinical information: Yes Notes (Text): 10/22/18 03:47 I saw, examined and discussed this patient with Dr Jain. I agree with the assessment and plan outlined This is a 78 years old male who while exercising with weights, had a sudden unset of a lump and pain at the right inguinal region radiating up to the right lower quadrant and across the pelvic area. In the ED, CT scan showed Sign of Cystitis, Pyelonephritis, and Colitis all of which the patient was asymptomatic. He referred dysuria after the weight lifting incident. Surgery was consulted. We will treat with ceftriaxone and Flagyl, Pain management. Treat A Fib to control rate and continue Apixaban as anticoagulant. Stone Alvarez MD
[2018-10-21] MEDS ORDERED: Ciprofloxacin 400mg/200ml D5W 400 MG/200 ML BAG IVPB ONE (23:41)
[2018-10-22] MEDS ORDERED: metroNIDAZOLE 500mg/100ml NS 100 ML IVPB SCH ×2 (01:00→06:00)
[2018-10-22 01:20] VITALS: RESP 20
[2018-10-22 07:51] VITALS: BP 113/77; PULSE 89; TEMP 97.9; O2SAT 96
[2018-10-22 08:49] LABS: HEMOGLOBIN 13.3 g/dL (12.0-18.0); MEAN CELL VOLUME 99.3 fl (80.0-94.0); MEAN CORPUSCULAR HEMOGLOBIN 33.4 pg (27.0-31.0); MEAN CORPUSCULAR HGB CONC 33.6 g/dL (33.0-37.0); RBC 3.97 Mil/uL (4.40-5.90); RED CELL DISTRIBUTION WIDTH 14.5 % (11.5-14.5); WHITE BLOOD COUNT 4.5 K/uL (4.8-10.8)
[2018-10-22 09:00] LABS: BLOOD UREA NITROGEN 12 mg/dl (9-20); CALCIUM 9.4 mg/dL (8.4-10.2); GFR NON-AFRICAN AMERICAN > 60
--- NOTE | 2018-10-22 11:19 | CP.PCM.DIS ---
Provider - Provider Date of Admission: 10/21/18 20:54 Attending physician: Stone Alvarez Primary care physician: Dr. Jain Consults: 10/21/18 21:43 Surgery [General Surgery Consult] Stat Comment: Consulting Provider: Dominik South Consulting Physician: Dominik South Reason for Consult: inguinal hernia acute 10/22/18 03:11 Social Work Referral Routine Comment: lives by himself at his apartment Physician Instructions: Reason For Exam: lives alone Time Spent in preparation of Discharge (in minutes): 20 Hospital Course - Lab Results Lab Results: Most Recent Lab Values WBC 4.5 K/uL (4.8-10.8) L 10/22/18 07:40 RBC 3.97 Mil/uL (4.40-5.90) L 10/22/18 07:40 Hgb 13.3 g/dL (12.0-18.0) 10/22/18 07:40 Hct 39.4 % (35.0-51.0) 10/22/18 07:40 MCV 99.3 fl (80.0-94.0) H 10/22/18 07:40 MCH 33.4 pg (27.0-31.0) H 10/22/18 07:40 MCHC 33.6 g/dL (33.0-37.0) 10/22/18 07:40 RDW 14.5 % (11.5-14.5) 10/22/18 07:40 Plt Count 166 K/uL (130-400) 10/22/18 07:40 MPV 8.5 fl (7.2-11.7) 10/21/18 17:55 Neut % (Auto) 85.3 % (50.0-75.0) H 10/21/18 17:55 Lymph % (Auto) 8.9 % (20.0-40.0) L 10/21/18 17:55 [place] % (Auto) 4.8 % (0.0-10.0) 10/21/18 17:55 Eos % (Auto) 0.4 % (0.0-4.0) 10/21/18 17:55 Baso % (Auto) 0.6 % (0.0-2.0) 10/21/18 17:55 Neut # (Auto) 3.8 K/uL (1.8-7.0) 10/21/18 17:55 Lymph # (Auto) 0.4 K/uL (1.0-4.3) L 10/21/18 17:55 Bradford # (Auto) 0.2 K/uL (0.0-0.8) 10/21/18 17:55 Eos # (Auto) 0.0 K/uL (0.0-0.7) 10/21/18 17:55 Baso # (Auto) 0.0 K/uL (0.0-0.2) 10/21/18 17:55 Neutrophils % (Manual) 80 % (42-75) H 10/21/18 17:55 Band Neutrophils % 2 % (0-2) 10/21/18 17:55 Lymphocytes % (Manual) 10 % (20-50) L 10/21/18 17:55 Monocytes % (Manual) 7 % (0-10) 10/21/18 17:55 Basophils % (Manual) 1 % (0-2) 10/21/18 17:55 Platelet Estimate Normal (NORMAL) 10/21/18 17:55 Anisocytosis (manual) Slight 10/21/18 17:55 Macrocytosis (manual) Slight 10/21/18 17:55 PT 14.9 Seconds (9.8-13.1) H 10/21/18 17:30 INR 1.3 10/21/18 17:30 APTT 32.6 Seconds (25.6-37.1) 10/21/18 17:30 Sodium 136 mmol/l (132-148) 10/22/18 07:40 Potassium 3.7 MMOL/L (3.6-5.0) 10/22/18 07:40 Chloride 100 mmol/L (98-107) 10/22/18 07:40 Carbon Dioxide 27 mmol/L (22-30) 10/22/18 07:40 Anion Gap 13 (10-20) 10/22/18 07:40 BUN 12 mg/dl (9-20) 10/22/18 07:40 Creatinine 0.7 mg/dl (0.8-1.5) L 10/22/18 07:40 Est GFR ( Amer) > 60 10/22/18 07:40 Est GFR (Non-Af Amer) > 60 10/22/18 07:40 Random Glucose 93 mg/dL (75-110) 10/22/18 07:40 Lactic Acid 1.4 mmol/L (0.7-2.1) 10/21/18 17:30 Calcium 9.4 mg/dL (8.4-10.2) 10/22/18 07:40 Total Bilirubin 1.3 mg/dl (0.2-1.3) 10/21/18 17:30 AST 40 U/L (17-59) 10/21/18 17:30 ALT 29 U/L (21-72) 10/21/18 17:30 Alkaline Phosphatase 66 U/L (38-126) 10/21/18 17:30 Total Protein 7.8 G/DL (6.3-8.2) 10/21/18 17:30 Albumin 3.9 g/dL (3.5-5.0) 10/21/18 17:30 Globulin 3.9 gm/dL (2.2-3.9) 10/21/18 17:30 Albumin/Globulin Ratio 1.0 (1.0-2.1) 10/21/18 17:30 Urine Color Yellow (YELLOW) 10/21/18 17:30 Urine Clarity Slighty-cloudy (Clear) 10/21/18 17:30 Urine pH 6.0 (5.0-8.0) 10/21/18 17:30 Ur Specific [place] 1.012 (1.003-1.030) 10/21/18 17:30 Urine Protein Negative mg/dL (NEGATIVE) 10/21/18 17:30 Urine Glucose (UA) Neg mg/dL (NEGATIVE) 10/21/18 17:30 Urine Ketones Trace mg/dL (NEGATIVE) 10/21/18 17:30 Urine Blood Small (NEGATIVE) 10/21/18 17:30 Urine Nitrate Negative (NEGATIVE) 10/21/18 17:30 Urine Bilirubin Negative (NEGATIVE) 10/21/18 17:30 Urine Urobilinogen 4.0 mg/dL (0.2-1.0) 10/21/18 17:30 Ur Leukocyte Esterase Neg Jad/uL (Negative) 10/21/18 17:30 Urine Microscopic WBC 2 /hpf (0-5) 10/21/18 17:30 Ur Squamous Epith Cells < 1 /hpf (0-5) 10/21/18 17:30 Blood Type A POSITIVE 10/21/18 17:30 Blood Type Confirm A POSITIVE 10/22/18 07:40 Antibody Screen Negative 10/21/18 17:30 BBK History Checked No verified bt 10/21/18 17:30 - Hospital Course Hospital Course: 78 y/o M with a PMHx of A-Fib and CHF presented to ED complaining of lower abdominal pain while exercising at home ,lifting two 10lbs dumbbells. He suddenly developed lower abdomen pain began, 10/10 intensity, radiated to b/l testicular area, described as dull aggravated with sitting up. CT abdomen and pelvis showed small bilateral inguinal hernias fat containing with no incarceration ,right inguinal hernia appears inflamed. Surgery was consulted and recommended outpatient follow up and Pain management PRN At present patient is hemodynamically stable, afebrile , pain has resolved , voiding freely , p[assing flatus. Denies any pain or discomfort Labs and vitals wnl ands Ua clear Will discharge patient home with follow up with PMD and surgery Dx 1. Lower abdominal pain most likley secondary to Bilateral Inguinal hernias with fat containing ( not incarcerated) -- surgery cosnulted Pain resolved Follow up as outpatient There is no Cystitis and colitis 2.Chronic Afib 3. Hypertension 4. 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 absent: Wheezes, Respiratory Distress - Cardiovascular Exam Cardiovascular Exam: Irregular Rhythm. absent: JVD - GI/Abdominal Exam GI & Abdominal Exam: Hernia (bilateral inguinal with no tenderness to palpation ), Normal Bowel Sounds, Soft. absent: Distended, Guarding, Rebound, Tenderness - Rectal Exam Rectal Exam: Deferred - Extremities Exam Extremities exam: normal inspection, pedal pulses present - Back Exam Back exam: NORMAL INSPECTION - Neurological Exam Neurological exam: Alert, CN II-XII Intact - Psychiatric Exam Psychiatric exam: Normal Affect - Skin Skin Exam: Dry, Warm Discharge Plan - Follow Up Plan Condition: STABLE Disposition: HOME/ ROUTINE Patient education suggested?: Yes Instructions: Groin Hernia (DC) Additional Instructions: Follow up with surgery as outpatient Referrals: [facility] [Outside]
--- NOTE | 2018-10-22 17:02 | RAD ---
Date of service: 10/21/2018 HISTORY: abd pain COMPARISON: Comparison chest 08/31/2018 TECHNIQUE: 1 view obtained. FINDINGS: LUNGS: There appears to be mild pulmonary venous congestive changes. PLEURA: No significant pleural effusion identified, no pneumothorax apparent. CARDIOVASCULAR: No aortic atherosclerotic calcification present. Marked cardiomegaly. No pulmonary vascular congestion. OSSEOUS STRUCTURES: No significant abnormalities. VISUALIZED UPPER ABDOMEN: Normal. OTHER FINDINGS: None. IMPRESSION: Findings consistent with mild pulmonary venous congestion changes with marked cardiomegaly.
--- NOTE | 2018-10-22 17:56 | CT ---
Date of service: 10/21/2018 PROCEDURE: CT abdomen and pelvis. HISTORY: Right inguinal swelling and pain r/o strangulated COMPARISON: None. TECHNIQUE: Contiguous axial images of the abdomen and pelvis performed following intravenous injection of approximately 95 cc Omnipaque 300 contrast material. Additional 2D sagittal and coronal reformats generated. Radiation dose: Total exam DLP = 431.47 mGy-cm. This CT exam was performed using one or more of the following dose reduction techniques: Automated exposure control, adjustment of the mA and/or kV according to patient size, and/or use of iterative reconstruction technique. FINDINGS: LOWER THORAX: Heart is markedly enlarged with straightening of the intraventricular septum consistent with right heart strain possibly secondary to chronic pulmonary arterial hypertension... There is also reflux of contrast material into the hepatic veins and intra hepatic IVC with relatively non enhanced IVC and iliac veins. No significant pericardial effusion. Small pericardial effusion. Mild passive/dependent type atelectasis seen both posterior lower lung alexander. LIVER: Unremarkable. No gross lesion or ductal dilatation. Liver exhibits relatively normal size measuring approximately 12.7 cm in CC dimension. Moderate fatty hepatic infiltration.. There is opacification of the hepatic veins and IVC which suggests right heart failure. Clinical correlation recommended. GALLBLADDER AND BILE DUCTS: Cholelithiasis. PANCREAS: Unremarkable. No mass. No ductal dilatation. SPLEEN: Unremarkable. No splenomegaly. ADRENALS: No adrenal lesions. KIDNEYS AND URETERS: Unremarkable. No stone or hydronephrosis. Kidneys demonstrate relatively symmetric nephrograms. No evidence of nephrolithiasis or hydronephrosis.. There are several low-attenuation lesions both kidneys some of which probably represent hyperdense cortical cysts. Consider follow-up renal ultrasound to exclude any solid components... There may also be scattered cortical scarring changes well. Small amount of perinephric infiltration and fluid present.; Rule out ascending UTI/pyelonephritis. BLADDER: Urinary bladder is incompletely distended with what probably represents small bladder diverticulum along the superior posterolateral border. Urinary bladder wall is slightly thickened as well part due to incomplete distention and possibly muscular hypertrophy however correlation with urinalysis recommended to exclude cystitis or other intrinsic/invasive wall lesion. REPRODUCTIVE: The prostate gland is enlarged measuring approximately 4.7 cm in transverse dimension. Prostate gland encroaches into the floor urinary bladder. APPENDIX: The appendix unremarkable. BOWEL: Evaluation of the bowel is somewhat limited due to the lack of oral contrast material. The stomach is incompletely distended with thick-walled appearance. Visualized loops of small bowel exhibit normal contour and caliber. No evidence of acute mechanical small bowel obstruction. Moderate amount of stool seen throughout the large bowel suggesting mild fecal retention/constipation.. There are scattered colonic diverticula seen along the the bulk of which arise from the descending and sigmoid colon with what may represent some localized wall thickening involving a short segment of the distal descending/sigmoid colon; rule out mild localized acute diverticulitis. PERITONEUM: No gross free intraperitoneal air. No free or loculated fluid collections. Small fat containing umbilical hernia. Small bilateral fat containing inguinal hernias. LYMPH NODES: Unremarkable. No enlarged lymph nodes. VASCULATURE: Unremarkable. No aortic aneurysm. Minor aortic atherosclerotic calcification or mural plaque present. BONES: Mild multilevel degenerative spondylosis of the thoracic spine. Chronic appearing superior endplate deformity T12 segment. Probable bone island or osteoma L4 segment. OTHER FINDINGS: None. IMPRESSION: Marked cardiomegaly with of findings consistent with additional findings stat suggest right heart strain or early right heart failure as listed in the lower thoracic section of this report.. Clinical correlation recommended. Cholelithiasis. Scattered colonic diverticula seen along the the bulk of which arise from the descending and sigmoid colon with what may represent some localized wall thickening involving a short segment of the distal descending/sigmoid colon; rule out mild localized acute diverticulitis. Suspect multiple bilateral renal cysts some of which are likely hyperdense however follow-up renal ultrasound could be performed to confirm and exclude any solid components. Apparent urinary bladder diverticula. The note that this report was placed in PA review folder for follow up.
--- NOTE | 2018-10-22 18:55 | CARD ---
APPROVED REPORT Date of service: 10/21/2018 EKG Measurement Heart [id number] <Conclusion> Atrial fibrillation with rapid ventricular response with premature ventricular or aberrantly conducted complexes Right bundle branch block Abnormal ECG
== END 2018-10-22 14:59 | disposition home or self-care (01) ==
LOC: H.ER 15:58 → H.ERHOLD 20:54 → INTOOBSV 20:54 → H.MEDSURG1 10-22 00:34
PROVIDERS: ADMIT Internal Medicine; ATTEND Internal Medicine
DX: R10.30 Lower abdominal pain, unspecified (principal); K40.20 Bilateral inguinal hernia, without obstruction or gangrene, not specified as recurrent; J45.20 Mild intermittent asthma, uncomplicated; I48.2 Chronic atrial fibrillation; Z79.01 Long term (current) use of anticoagulants; I08.3 Combined rheumatic disorders of mitral, aortic and tricuspid valves; K52.9 Noninfective gastroenteritis and colitis, unspecified; I42.0 Dilated cardiomyopathy; I11.0 Hypertensive heart disease with heart failure; I50.9 Heart failure, unspecified; K76.0 Fatty (change of) liver, not elsewhere classified
CPT/HCPCS: 36415; 71045; 74177; 80048; 80053; 81003; 83605; 84145; 85025; 85027; 85610; 85730; 86850; 86900; 93005; 96365; 96367; 96375; 96376; 99285; G0378; J0696; J0744; J2270; J2405; Q9967

== ENCOUNTER 2018-10-29 22:26 | Inpatient (IN) | payer OTHER ==
[2018-10-29] MEDS ORDERED: Iohexol 240 (50 ml) PO STA (23:22)
--- NOTE | 2018-10-29 23:31 | ED PDOC ---
HPI: Abdomen Time Seen by Provider: 10/29/18 22:47 Chief Complaint (Nursing): Male Genitourinary Chief Complaint (Provider): abdominal pain History Per: Patient History/Exam Limitations: other (hard of hearing) Additional Complaint(s): 78 y/o M with hx of Afib on Eliquis and inguinal hernia who presents with lower abdominal pain and testicular pain. Pt states that he was sitting in a chair at about 7pm this evening when he began having some Right sided groin pain worsened when he stood to go to the bathroom. The pain is constant but has been intermittently improving and worsening. Rates the pain 7/10 on pain scale. He has not taken any medication for the pain as of yet. He said this pain is similar to his previous pain when he was diagnosed with inguinal hernia. He does not normally have pain daily. Denies fever, chills, night sweats, N/V or diarrhea. Past Medical History Reviewed: Historical Data, Nursing Documentation, Vital Signs Vital Signs: Last Vital Signs Temp 98.2 F 10/29/18 22:28 Pulse 102 H 10/29/18 22:28 Resp 18 10/29/18 22:28 BP 112/79 10/29/18 22:28 Pulse Ox 97 10/29/18 22:28 - Medical History PMH: Asthma, Atrial Fibrillation, HTN Denies: HIV, Chronic Kidney Disease - Family History Family History: States: Unknown Family Hx - Home Medications Home Medications: Ambulatory Orders Medication Instructions Recorded Apixaban [Eliquis] 5 mg PO BID #60 tab 09/01/18 Furosemide [Lasix] 20 mg PO DAILY #30 tab 09/01/18 Gabapentin [Neurontin] 100 mg PO HS #30 capsule 09/01/18 Lisinopril [Prinivil] 10 mg PO DAILY #30 tablet 09/01/18 Metoprolol Tartrate [Lopressor] 25 mg PO Q12 #60 tab 09/01/18 - Allergies Allergies/Adverse Reactions: Allergies Allergy/AdvReac Type Severity Reaction Status Date / Time No Known Allergies Allergy Verified 10/29/18 22:28 Review of Systems Constitutional: Negative for: Fever, Chills Gastrointestinal: Positive for: Abdominal Pain. Negative for: Nausea, Vomiting Genitourinary Male: Negative for: Dysuria Physical Exam - Reviewed Nursing Documentation Reviewed: Yes Vital Signs Reviewed: Yes - Physical Exam Appears: Positive for: Uncomfortable Male Genital Exam: Positive for: inguinal tenderness (tenderness on palpation of Right inguinal canal and Right Lower quadrant abdomen w/ soft tissue swelling in Right groin. ), other (exam performed in the presence of RN Naida). Negative for: scrotum tenderness (R), scrotum tenderness (L) Neurological/Psych: Positive for: Awake, Alert, Oriented - Laboratory Results Result Diagrams: 10/29/18 23:35 10/29/18 23:35 - ECG O2 Sat by Pulse Oximetry: 97 Medical Decision Making Medical Decision Making: CBC, CMP Morphine 2mg IV x 1 CT abd/pelvis w/ PO and IV contrast urine dip CT abd/pelvis w/ PO and IV contrast: Mild diffuse thickenign of the bladder. Chronic bladder outlet obstruction, cystitis. Right lateral bladder diverticula are noted. Moderate prostatomegaly. The cardiac silhouette is moderately enla rged. B/cl basilar subsegmental atelectatic pulmonary changes. Mild central pulmonary venous congestion. B/L fat containing inguinal hernias w/o incarceration. Small sliding hiatal hernia. Moderate constipation. 3am: re-evaluated: continues to have significant pain stating that there has been no improvement. Tramadol 50mg PO x 1. 5:30am: re-evaluated, pt states that his pain is unchanged and he cannot walk. He has only taken one dose of Metoprolol last night at 8pm. Pt has meds with him and Metoprolol bottle noted to be Metoprolol tartrate 25mg PO BID. Patient advised to take dose of Metoprolol now. HR has been in low 100s but denies palpitations, SOB or chest pain. Case discussed with Dr. Alvarez and care transferred at 5:46am. Surgery consulted as per Dr. Alvarez's request and will come to see patient. Disposition - Clinical Impression Clinical Impression: Intractable abdominal pain, Hernia, inguinal, right - Patient ED Disposition Is Patient to be Admitted: Yes (Dr. Alvarez) - Disposition Disposition: Transfer of Care Disposition Time: 05:46 Condition: FAIR
[2018-10-29] MEDS ORDERED: Iohexol 240 (50 ml) ONE (23:44)
[2018-10-29 23:53] LABS: EOS # 0.2 K/uL (0.0-0.7); HEMOGLOBIN 15.2 g/dL (12.0-18.0); LYMPH # 0.8 K/uL (1.0-4.3); LYMPH % 20.1 % (20.0-40.0); MONO # 0.3 K/uL (0.0-0.8); NEUT # 2.5 K/uL (1.8-7.0); NRBC % 0.1 % (0.0-0.0); WHITE BLOOD COUNT 3.9 K/uL (4.8-10.8)
[2018-10-30 00:06] LABS: BASO # 0.1 K/uL (0.0-0.2); BASO % 3.4 % (0.0-2.0); EOS % 4.3 % (0.0-4.0); MEAN CELL VOLUME 98.5 fl (80.0-94.0); MEAN CORPUSCULAR HEMOGLOBIN 33.5 pg (27.0-31.0); MEAN PLATELET VOLUME 7.9 fl (7.2-11.7); MONO % 8.8 % (0.0-10.0); NEUT % 63.4 % (50.0-75.0); PLATELET COUNT 245 K/uL (130-400); RBC 4.52 Mil/uL (4.40-5.90); RED CELL DISTRIBUTION WIDTH 14.5 % (11.5-14.5)
[2018-10-30 00:12] LABS: ALBUMIN 4.9 g/dL (3.5-5.0); ALT/SGPT 29 U/L (21-72); AST/SGOT 39 U/L (17-59); BLOOD UREA NITROGEN 15 mg/dl (9-20); CALCIUM 9.9 mg/dL (8.4-10.2); GFR NON-AFRICAN AMERICAN > 60
[2018-10-30 01:28] LABS: BASOPHIL 2 % (0-2); EOSINOPHIL 4 % (0-7); LYMPHOCYTE 19 % (20-50); MONOCYTE 4 % (0-10); NEUTROPHIL 70 % (42-75); PLATELET ESTIMATE NORMAL (NORMAL); REACTIVE LYMPHOCYTES 1 % (0-0); TOTAL CELLS COUNTED 100
[2018-10-30] MEDS ORDERED: Sodium Chloride 0.9% 100 ML ONE (02:57)
[2018-10-30] MEDS ORDERED: Iohexol 300 100 ML IJ ONE (02:58)
--- NOTE | 2018-10-30 07:08 | CP.PCM.HP ---
<Claude Castro - Last Filed: 10/30/18 07:30> History of Present Illness - History of Present Illness History of Present Illness: 78 yo M pmhx afib, chf presents with R groin pain. Pt states that pain was sudden onset while seated. R groin. Pulsating and squeezing. rated 7/10. Intermittent lasting seconds to minutes. Radiating caudally to RUQ and back. Aggravated with certain movements: lifting, raising R leg. Alleviated with rest. Denies fever, chills, nausea or vomiting. Denies testicular pain or abnormal mass in scrotum. Reports descended testicles. Of note, he was admitted 10/21/2018 with similar symptoms; surgery consulted: medically managed. PMD: NHC: Dr. Jain Cardiology: Dr. Anabella Peng PMHx: Atrial Fibrillation, CHF due to valvular disease, ASD secundum, MR, TR. PSHx: denied SHx: denies smoking, alcohol or illicit drugs. Lives alone. Meds: Metoprolol 25mg PO Q12H, Eliquis 5mg PO BID, Lisinopril 10mg PO daily, Lasix 20mg PO daily, Gabapentin 100 PO HS. NKDA Present on Admission - Present on Admission Any Indicators Present on Admission: No History of Uncontrolled Diabetes: No Urinary Catheter: No Review of Systems - Gastrointestinal Gastrointestinal: Abdominal Pain - Genitourinary Genitourinary: absent: Dysuria, Urinary Frequency Additional comments: R groin pain - Reproductive: Male Reproductive:Male: As Per HPI Past Patient History - Tetanus Immunizations Tetanus Immunization: Unknown - Past Medical History & Family History Past Medical History?: No - Past Social History Smoking Status: Never Smoked Alcohol: None Drugs: Denies Home Situation {Lives}: Alone - CARDIAC Hx Atrial Fibrillation: Yes Hx Hypertension: Yes - PULMONARY Hx Asthma: Yes - NEUROLOGICAL Hx Neurological Disorder: No - HEENT Hx HEENT Problems: No - RENAL Hx Chronic Kidney Disease: No - ENDOCRINE/METABOLIC Hx Endocrine Disorders: No - HEMATOLOGICAL/ONCOLOGICAL Hx Human Immunodeficiency Virus (HIV): No - INTEGUMENTARY Hx Dermatological Problems: No - MUSCULOSKELETAL/RHEUMATOLOGICAL Hx Musculoskeletal Disorders: No - GASTROINTESTINAL Hx Gastrointestinal Disorders: No - GENITOURINARY/GYNECOLOGICAL Hx Genitourinary Disorders: No - PSYCHIATRIC Hx Psychophysiologic Disorder: No Hx Substance Use: No - SURGICAL HISTORY Hx Surgeries: No - ANESTHESIA Hx Anesthesia: No Meds Allergies/Adverse Reactions: Allergies Allergy/AdvReac Type Severity Reaction Status Date / Time No Known Allergies Allergy Verified 10/29/18 22:28 Physical Exam - Eye Exam Eye Exam: EOMI - ENT Exam ENT Exam: Mucous Membranes Moist - Respiratory Exam Respiratory Exam: Clear to Auscultation Bilateral, NORMAL BREATHING PATTERN. absent: Wheezes - Cardiovascular Exam Cardiovascular Exam: +S1, +S2 - GI/Abdominal Exam GI & Abdominal Exam: Normal Bowel Sounds, Tenderness (R inguinal tenderness to light palpation. ) - Exam Exam: absent: Circumcision, Scrotal Swelling, Testicular Tenderness, Uretheral Discharge Additional comments: With Dr. Alvarez - Neurological Exam Neurological exam: Alert, CN II-XII Intact - Psychiatric Exam Psychiatric exam: Normal Affect, Normal Mood Results - Vital Signs Recent Vital Signs: Last Vital Signs Temp 98.5 F 10/30/18 06:25 Pulse 96 H 10/30/18 06:25 Resp 15 10/30/18 06:25 BP 128/77 10/30/18 06:25 Pulse Ox 97 10/30/18 06:43 - Labs Result Diagrams: 10/29/18 23:35 10/29/18 23:35 Labs: Laboratory Results - last 24 hr 10/29/18 10/29/18 23:35 23:35 WBC 3.9 L RBC 4.52 Hgb 15.2 Hct 44.5 MCV 98.5 H MCH 33.5 H MCHC 34.0 RDW 14.5 Plt Count 245 MPV 7.9 Neut % (Auto) 63.4 Lymph % (Auto) 20.1 Love % (Auto) 8.8 Eos % (Auto) 4.3 H Baso % (Auto) 3.4 H Neut # (Auto) 2.5 Lymph # (Auto) 0.8 L Love # (Auto) 0.3 Eos # (Auto) 0.2 Baso # (Auto) 0.1 Neutrophils % (Manual) 70 Lymphocytes % (Manual) 19 L Reactive Lymphs % 1 H Monocytes % (Manual) 4 Eosinophils % (Manual) 4 Basophils % (Manual) 2 Platelet Estimate Normal Sodium 139 Potassium 3.8 Chloride 96 L Carbon Dioxide 30 Anion Gap 17 BUN 15 Creatinine 0.9 Est GFR ( Amer) > 60 Est GFR (Non-Af Amer) > 60 Random Glucose 110 Calcium 9.9 Total Bilirubin 1.8 H AST 39 ALT 29 Alkaline Phosphatase 81 Total Protein 9.8 H Albumin 4.9 Globulin 4.9 H Albumin/Globulin Ratio 1.0 Assessment & Plan - Assessment and Plan (Free Text) Assessment: 78 yo M pmhx afib, chf presents with recurrent R groin pain. Admitted for symptomatic R inguial hernia. Plan: R inguinal hernia -CT Abdo: f/u official report -symptomatic: monitor for incarceration -Surgery: Dr. Kearns: recs appreciated -Pain management -Clear liquid -f/u labs Afib -c/w eliquis, metoprolol CHF -c/w Lasix, lisinopril -I&Os ASD -Dr. Peng: last visit 10/18/2018: continue present management DVT prophylaxis -Eliquis -scd Case and plan d/w Dr. Antonio Castro MD PGY2 <Stone Alvarez - Last Filed: 10/30/18 19:09> Results - Vital Signs Recent Vital Signs: Last Vital Signs Temp 98.5 F 10/30/18 08:05 Pulse 97 H 10/30/18 16:07 Resp 18 10/30/18 16:07 BP 130/89 10/30/18 16:07 Pulse Ox 110 H 10/30/18 16:07 - Labs Result Diagrams: 10/29/18 23:35 10/29/18 23:35 Labs: Laboratory Results - last 24 hr 10/29/18 10/29/18 10/30/18 23:35 23:35 14:18 WBC 3.9 L RBC 4.52 Hgb 15.2 Hct 44.5 MCV 98.5 H MCH 33.5 H MCHC 34.0 RDW 14.5 Plt Count 245 MPV 7.9 Neut % (Auto) 63.4 Lymph % (Auto) 20.1 Love % (Auto) 8.8 Eos % (Auto) 4.3 H Baso % (Auto) 3.4 H Neut # (Auto) 2.5 Lymph # (Auto) 0.8 L Love # (Auto) 0.3 Eos # (Auto) 0.2 Baso # (Auto) 0.1 Neutrophils % (Manual) 70 Lymphocytes % (Manual) 19 L Reactive Lymphs % 1 H Monocytes % (Manual) 4 Eosinophils % (Manual) 4 Basophils % (Manual) 2 Platelet Estimate Normal Sodium 139 Potassium 3.8 Chloride 96 L Carbon Dioxide 30 Anion Gap 17 BUN 15 Creatinine 0.9 Est GFR ( Amer) > 60 Est GFR (Non-Af Amer) > 60 Random Glucose 110 Lactic Acid 2.0 Calcium 9.9 Total Bilirubin 1.8 H AST 39 ALT 29 Alkaline Phosphatase 81 Total Protein 9.8 H Albumin 4.9 Globulin 4.9 H Albumin/Globulin Ratio 1.0 Attending/Attestation - Attestation I have personally seen and examined this patient.: Yes I have fully participated in the care of the patient.: Yes I have reviewed all pertinent clinical information: Yes Notes (Text): 10/30/18 19:02 i saw, examined and discussed this patient with Dr Castro. I agree with the assessment and plan outlined. This is a 78 years old patient with second admission with pain to the RLQ of the abdomen with right inguinal hernia, not strangulated as per the CT abdomen. We will consult with surgery to evaluate and consider Herniarraphia. Continue pain management. Stone Alvarez MD
[2018-10-30] MEDS ORDERED: Bisacodyl 5mg EC Tab PO ONE (07:39)
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
[2018-10-30] MEDS ORDERED: Chlorhexidine Gluconate 1 APPL/PKT TP ONE (10:10)
--- NOTE | 2018-10-30 11:59 | CP.PCM.CON ---
History of Present Illness - History of Present Illness History of Present Illness: PT has hx of fat containing inguinal hernia, states he has pain in the right groin, has been coming to the emergency room for this, the patient has a small hernia on ct scan. he has no obstruction or obstipation, no other complaints Review of Systems - Constitutional Constitutional: As Per HPI - EENT Eyes: As Per HPI Ears: As Per HPI Nose/Mouth/Throat: As Per HPI - Cardiovascular Cardiovascular: As Per HPI - Respiratory Respiratory: As Per HPI - Gastrointestinal Gastrointestinal: As Per HPI - Genitourinary Genitourinary: As Per HPI - Reproductive: Male Reproductive:Male: As Per HPI - Musculoskeletal Musculoskeletal: As Per HPI - Integumentary Integumentary: As Per HPI - Neurological Neurological: As Per HPI - Psychiatric Psychiatric: As Per HPI - Endocrine Endocrine: As Per HPI Past Patient History - Tetanus Immunizations Tetanus Immunization: Unknown - Past Medical History & Family History Past Medical History?: No - Past Social History Smoking Status: Never Smoked Alcohol: None Drugs: Denies Home Situation {Lives}: Alone - CARDIAC Hx Cardiac Disorders: Yes (a-fib, chf) - PULMONARY Hx Asthma: Yes - NEUROLOGICAL Hx Neurological Disorder: No - HEENT Hx HEENT Problems: No - RENAL Hx Chronic Kidney Disease: No - ENDOCRINE/METABOLIC Hx Endocrine Disorders: No - HEMATOLOGICAL/ONCOLOGICAL Hx Human Immunodeficiency Virus (HIV): No - INTEGUMENTARY Hx Dermatological Problems: No - MUSCULOSKELETAL/RHEUMATOLOGICAL Hx Musculoskeletal Disorders: No - GASTROINTESTINAL Hx Gastrointestinal Disorders: No - GENITOURINARY/GYNECOLOGICAL Hx Genitourinary Disorders: No - PSYCHIATRIC Hx Psychophysiologic Disorder: No - SURGICAL HISTORY Hx Surgeries: No - ANESTHESIA Hx Anesthesia: No Meds Allergies/Adverse Reactions: Allergies Allergy/AdvReac Type Severity Reaction Status Date / Time No Known Allergies Allergy Verified 10/29/18 22:28 - Medications Medications: Current Medications Apixaban (Eliquis) 5 mg PO BID [facility]; Protocol Furosemide (Lasix) 20 mg PO DAILY [facility] Last Admin: 10/30/18 09:26 Dose: 20 mg Gabapentin (Neurontin) 100 mg PO [facility] Ketorolac Tromethamine (Toradol) 15 mg IVP Q6 PRN PRN Reason: Pain, Mild (1-3) Ketorolac Tromethamine (Toradol) 30 mg IVP Q6 PRN PRN Reason: Pain, moderate (4-7) Last Admin: 10/30/18 09:27 Dose: 30 mg Lisinopril (Zestril) 10 mg PO DAILY [facility] Metoprolol Tartrate (Lopressor) 25 mg PO Q12 [facility] Tamsulosin HCl (Flomax) 0.4 mg PO DAILY [facility] Physical Exam - Constitutional Appears: Non-toxic - Head Exam Head Exam: ATRAUMATIC - Eye Exam Eye Exam: EOMI, Normal appearance - ENT Exam ENT Exam: Mucous Membranes Moist, Normal Exam - Neck Exam Neck exam: Positive for: Normal Inspection - Respiratory Exam Respiratory Exam: Clear to Auscultation Bilateral - Cardiovascular Exam Cardiovascular Exam: REGULAR RHYTHM - GI/Abdominal Exam GI & Abdominal Exam: Normal Bowel Sounds Additional comments: right inguinal hernia, reducible Results - Vital Signs Recent Vital Signs: Last Vital Signs Temp 98.5 F 10/30/18 08:05 Pulse 91 H 10/30/18 08:19 Resp 18 10/30/18 08:19 BP 109/87 10/30/18 09:26 Pulse Ox 95 10/30/18 08:19 - Labs Result Diagrams: 10/29/18 23:35 10/29/18 23:35 Labs: Laboratory Results - last 24 hr 10/29/18 10/29/18 23:35 23:35 WBC 3.9 L RBC 4.52 Hgb 15.2 Hct 44.5 MCV 98.5 H MCH 33.5 H MCHC 34.0 RDW 14.5 Plt Count 245 MPV 7.9 Neut % (Auto) 63.4 Lymph % (Auto) 20.1 [place] % (Auto) 8.8 Eos % (Auto) 4.3 H Baso % (Auto) 3.4 H Neut # (Auto) 2.5 Lymph # (Auto) 0.8 L [place] # (Auto) 0.3 Eos # (Auto) 0.2 Baso # (Auto) 0.1 Neutrophils % (Manual) 70 Lymphocytes % (Manual) 19 L Reactive Lymphs % 1 H Monocytes % (Manual) 4 Eosinophils % (Manual) 4 Basophils % (Manual) 2 Platelet Estimate Normal Sodium 139 Potassium 3.8 Chloride 96 L Carbon Dioxide 30 Anion Gap 17 BUN 15 Creatinine 0.9 Est GFR ( Amer) > 60 Est GFR (Non-Af Amer) > 60 Random Glucose 110 Calcium 9.9 Total Bilirubin 1.8 H AST 39 ALT 29 Alkaline Phosphatase 81 Total Protein 9.8 H Albumin 4.9 Globulin 4.9 H Albumin/Globulin Ratio 1.0 Assessment & Plan - Assessment and Plan (Free Text) Assessment: right inguinal hernia, wants to have it repaired, cannot happen without cardiac clearance Plan: as above - Date & Time Date: 10/30/18 Time: 12:00
[2018-10-30 16:00] VITALS: BMI 24.5
[2018-10-30] MEDS: Oxycodone/Acetaminophen 5/325 mg Tab PO PRN (16:20)
--- NOTE | 2018-10-30 19:00 | RAD ---
Date of service: 10/30/2018 HISTORY: pre-op for inguinal hernia repair COMPARISON: No prior. TECHNIQUE: Chest PA and lateral views FINDINGS: LUNGS: No active pulmonary disease. Linear atelectasis left base. PLEURA: No significant pleural effusion identified. No pneumothorax apparent. CARDIOVASCULAR: No aortic atherosclerotic calcification present. Marked cardiomegaly reiterated without pulmonary vascular congestion in the interval. Prior hypervascular markings appear to have significantly improved in the interval. OSSEOUS STRUCTURES: No significant abnormalities. VISUALIZED UPPER ABDOMEN: Normal. OTHER FINDINGS: None. IMPRESSION: No significant acute cardiopulmonary disease appreciable. Chronic prominent cardiomegaly reiterated but with resolution of prior pulmonary vascular congestion.
--- NOTE | 2018-10-30 19:04 | RAD ---
Date of service: 10/30/2018 PROCEDURE: BILATERAL HIP WITH PELVIS RADIOGRAPHS HISTORY: groin pain/difficulty ambulating COMPARISON: Abdomen pelvis CT with contrast 10/30/2018 earlier the same day. TECHNIQUE: Five views submitted. FINDINGS: Diffuse osteopenia suggests osteoporosis. No displaced fracture of either hip joint is appreciated there is no dislocation either. Moderate bilateral sacroiliac and hip joint degenerative change are identified. No destructive bony lesion is appreciated at the bilateral hip joints or the pelvic ring grossly. Retained oral contrast material in the colon obscures right iliac crest and the left iliac bone as well as the mid inferior sacrum. Pelvic ring is intact with pubic symphysis appearing normal. Pubic bones are unremarkable as well as the bilateral innominate bones. Phleboliths are suggested at multiple sites of the mid inferior pelvic soft tissues. IMPRESSION: Diffuse osteopenia suggests osteoporosis. Moderate bilateral sacroiliac and hip joint degenerative change. No hip fracture or or dislocation identified. No fracture of the pelvic ring grossly evident. Retained oral contrast within bowel limits interpretation of upper mid pelvis as per above.
--- NOTE | 2018-10-30 20:47 | CARD ---
APPROVED REPORT Date of service: 10/30/2018 EKG Measurement Heart [id number] <Conclusion> Atrial fibrillation Left axis deviation Right bundle branch block Probable Septal infarct, age undetermined Abnormal ECG
--- NOTE | 2018-10-30 23:00 | PCM.RRT ---
I.Reason for FINANCIAL CONSULTANT - A) Acute Change in Patient: Subjective: FINANCIAL CONSULTANT Call Time: 22:03 FINANCIAL CONSULTANT Arrival Time: 2204 FINANCIAL CONSULTANT Location: [facility] Med-Surg Floor S: FINANCIAL CONSULTANT was called by RN on this 78 y/o M due to hypotension. As per RN, pt was due for his scheduled nightly dose of Lopressor 25mg, BP was measured previous to administration and resulted as 72/50. Pt reports feeling OK, complaints only of some tolerable R inguinal pain. Pt denies fever, chills, headache, cough, chest pain, SOB, palpitations, N/V/D. O: --VITAL SIGNS: BP 72/52, HR 77, O2 sat 92%, >GEN: Pt was resting comfortably on bed, awake, alert, NAD, responsive to tactile and verbal stimulation. >HEENT: NC/AT, EOMI, PERRL, moist mucous membranes. >CV: S1 and S2 present, murmur, pulses present of b/l radial areas and DP. >LUNGS: normal breathing pattern, no wheezing, no rales. >EXT: No cyanosis, no edema. FINANCIAL CONSULTANT Interventions: --IV normal saline infusion 1L. at a rapid rate. --Oxygen by NC at 2 L/min --Chart reviewed. --Tredelenburg position --BP remeasured at 22:20 -> 81/67 --Another bag of IV bolus of NSS ordered. --BP 108/70 at 22:46 --Pt returned to suspine position, BP became low again 82/60. A/P: 78 y/o M with a PMHx of Afib and diastolic cardiac dysfunction admitted for painful R inguinal herniaacute episode of hypotension. --Will transfer pt to ICU to monitor BP. --IV NSS at 150mL/hr after 2nd bag was given. FINANCIAL CONSULTANT End Time: 22:51 FINANCIAL CONSULTANT Women'S Studies Professor: Maricel Kerns FINANCIAL CONSULTANT Residents: Dr Anabella Ohara PGY-2, Dr Jain PGY-2.
[2018-10-30] MEDS: Enoxaparin 60 mg Syringe SC SCH (23:20)
--- NOTE | 2018-10-30 23:31 | CP.CCUPN ---
CCU Subjective - Physician Review Subjective (Free Text): PMD: NHC: Dr. Jain Cardiology: Dr. Anabella Peng Chief Complaint: Hypotension/ RLQ abdominal pain HPI: 78 years old male with hx of Chronic A Fib on Apixaban, HTN, Dilated cardiomyopathy, admitted on 10/30/18 with second visit for right lower quadrant abdominal pain with a right inguinal hernia non strangulated seen on CT Abdomen/Pelvis. He was seen by Surgery who decided on Hernia repair. Tonight 10/30/18 the rapid response team was called for a Blood Pressure of 72/50mmHg and a Heart Rate of 70/min. Blood Pressure did not improve much after 2Liters of Normal Saline, so the patient was transferred to the ICU for additional treatment. and possible starting of a vasopressor. PMH: Atrial Fibrillation, CHF due to valvular disease, ASD secundum, MR, TR.; asthma; HTN; Inguinal Hernia bilateral; PSH: He denies SH: No smoking; No alcohol or illicit drugs. Lives alone. FH: States: No known family hx Allergies: NKDA Medication: Metoprolol 25mg PO Q12H, Eliquis 5mg PO BID, Lisinopril 10mg PO daily, Lasix 20mg PO daily, Gabapentin 100 PO HS. BP 72/50mmHg; HR 70/min; spO2 92 on RA ROS: No headaches, dizziness, nausea, vomits, cough. No chest pain, SOB nor Palpitation Abdominal pain at RLQ is present, no rebound tenderness, No testicular pain nor Scrotal swelling No urinary symptoms, No diarrhea Exam: Awake Alert and in no respiratory distress Resp: Clear breath sounds, no rales, wheezing nor rhonchi CVS: No S1 S2 RRR and Gallops Abdomen: flat, Soft, tenser at the RLQ, no rebound, no guarding, decrease bowel sounds Ext> chronic healed wounds at the legs, right more than left, Pain to the legs on palpation. Neuro: Awake, Alert. Hearing impaired, no facial droop, Moving all extremities.motor strength 5/5 at all extremities A&P: #. Hypotension probably secondary to medication and dehydration - Patient given 2Liters of NS on the Medical Surgery unit and transferred to ICU where the fluid was continued at 150mls/HR. Continue at 200mls /hr to maintain MAT >65 - Consent for Central line to be obtained for TLC insertion and possible Vasopressor infusion. remembering that the patient is on Apixaban -Stat CBC/ CMP Troponin #. Right Inguinal Hernia - Surgery on consult - pain management #. Chronic A fib - Cardiology on consult for clearance to surgery - Rate control with Metoprolol - Anticoagulant with Apixaban, restart after surgery #. HTN - Hold Antihypertensive medications #. DVT Prophylaxis with SCD and lovenox #. Full code Stone Alvarez MD CCU Objective - Vital Signs / Intake & Output Vital Signs (Last 4 hours): Vital Signs Pulse BP 10/30/18 21:30 72 75/50 L Intake and Output (Last 8hrs): Intake & Output 10/30/18 10/30/18 10/31/18 14:59 22:59 06:59 Weight 138 lb 14.259 oz - Medications Active Medications: Active Medications Generic Name Dose Route Start Last Admin Trade Name Freq PRN Reason Stop Dose Admin Acetaminophen 650 mg 10/30/18 15:53 Tylenol 325mg Tab PO Q6 PRN Pain, Mild (1-3) Docusate Sodium 200 mg 10/30/18 22:00 10/30/18 23:19 Colace PO 200 mg HS [facility] Administration Enoxaparin Sodium 60 mg 10/30/18 21:00 10/30/18 23:20 Lovenox SC 60 mg Q12 [facility] Administration Protocol Furosemide 20 mg 10/30/18 09:00 10/30/18 09:26 Lasix PO 20 mg DAILY [facility] Administration Gabapentin 100 mg 10/30/18 22:00 10/30/18 23:20 Neurontin PO 100 mg HS [facility] Administration Lisinopril 5 mg 10/31/18 09:00 Zestril PO DAILY [facility] Metoprolol Tartrate 25 mg 10/30/18 09:00 10/30/18 21:30 Lopressor PO Not Given Q12 [facility] Oxycodone/Acetaminophen 1 tab 10/30/18 15:54 10/30/18 16:20 Percocet 5/325 Mg Tab PO 11/02/18 15:55 1 tab Q6 PRN Administration Pain, moderate (4-7) Tamsulosin HCl 0.4 mg 10/30/18 09:00 10/30/18 16:20 Flomax PO 0.4 mg DAILY [facility] Administration Tramadol HCl 50 mg 10/30/18 15:53 Ultram PO Q6 PRN Pain, severe (8-10) - Patient Studies Lab Studies: Lab Studies 10/30/18 10/29/18 10/29/18 Range/Units 14:18 23:35 23:35 WBC 3.9 L (4.8-10.8) K/uL RBC 4.52 (4.40-5.90) Mil/uL Hgb 15.2 (12.0-18.0) g/dL Hct 44.5 (35.0-51.0) % MCV 98.5 H (80.0-94.0) fl MCH 33.5 H (27.0-31.0) pg MCHC 34.0 (33.0-37.0) g/dL RDW 14.5 (11.5-14.5) % Plt Count 245 (130-400) K/uL MPV 7.9 (7.2-11.7) fl Neut % (Auto) 63.4 (50.0-75.0) % Lymph % (Auto) 20.1 (20.0-40.0) % [place] % (Auto) 8.8 (0.0-10.0) % Eos % (Auto) 4.3 H (0.0-4.0) % Baso % (Auto) 3.4 H (0.0-2.0) % Neut # (Auto) 2.5 (1.8-7.0) K/uL Lymph # (Auto) 0.8 L (1.0-4.3) K/uL [place] # (Auto) 0.3 (0.0-0.8) K/uL Eos # (Auto) 0.2 (0.0-0.7) K/uL Baso # (Auto) 0.1 (0.0-0.2) K/uL Neutrophils % (Manual) 70 (42-75) % Lymphocytes % (Manual) 19 L (20-50) % Reactive Lymphs % 1 H (0-0) % Monocytes % (Manual) 4 (0-10) % Eosinophils % (Manual) 4 (0-7) % Basophils % (Manual) 2 (0-2) % Platelet Estimate Normal (NORMAL) Sodium 139 (132-148) mmol/l Potassium 3.8 (3.6-5.0) MMOL/L Chloride 96 L (98-107) mmol/L Carbon Dioxide 30 (22-30) mmol/L Anion Gap 17 (10-20) BUN 15 (9-20) mg/dl Creatinine 0.9 (0.8-1.5) mg/dl Est GFR ( Amer) > 60 Est GFR (Non-Af Amer) > 60 Random Glucose 110 (75-110) mg/dL Lactic Acid 2.0 (0.7-2.1) mmol/L Calcium 9.9 (8.4-10.2) mg/dL Total Bilirubin 1.8 H (0.2-1.3) mg/dl AST 39 (17-59) U/L ALT 29 (21-72) U/L Alkaline Phosphatase 81 (38-126) U/L Total Protein 9.8 H (6.3-8.2) G/DL Albumin 4.9 (3.5-5.0) g/dL Globulin 4.9 H (2.2-3.9) gm/dL Albumin/Globulin Ratio 1.0 (1.0-2.1) Laboratory Results - last 24 hr 10/29/18 10/29/18 10/30/18 23:35 23:35 14:18 WBC 3.9 L RBC 4.52 Hgb 15.2 Hct 44.5 MCV 98.5 H MCH 33.5 H MCHC 34.0 RDW 14.5 Plt Count 245 MPV 7.9 Neut % (Auto) 63.4 Lymph % (Auto) 20.1 [place] % (Auto) 8.8 Eos % (Auto) 4.3 H Baso % (Auto) 3.4 H Neut # (Auto) 2.5 Lymph # (Auto) 0.8 L [place] # (Auto) 0.3 Eos # (Auto) 0.2 Baso # (Auto) 0.1 Neutrophils % (Manual) 70 Lymphocytes % (Manual) 19 L Reactive Lymphs % 1 H Monocytes % (Manual) 4 Eosinophils % (Manual) 4 Basophils % (Manual) 2 Platelet Estimate Normal Sodium 139 Potassium 3.8 Chloride 96 L Carbon Dioxide 30 Anion Gap 17 BUN 15 Creatinine 0.9 Est GFR ( Amer) > 60 Est GFR (Non-Af Amer) > 60 Random Glucose 110 Lactic Acid 2.0 Calcium 9.9 Total Bilirubin 1.8 H AST 39 ALT 29 Alkaline Phosphatase 81 Total Protein 9.8 H Albumin 4.9 Globulin 4.9 H Albumin/Globulin Ratio 1.0 Radiology Impressions: Radiology Impressions Abdomen/Pelvis CT 10/29/18 23:22 IMPRESSION: 1. Small fat containing bilateral inguinal hernias identified with trace fluid at the right but no bowel involvement at either. No bowel obstruction appreciated throughout. 2. No definite acute abdominal findings. 3. Stable right renal cyst and likely small chronic infarct lower pole right kidney. 4. Stable chronic compression fracture is mild at T12. 5. Other lesser findings as discussed above. Preliminary report provided by Darlin, 10/30/2018, 3:58 a.m.. Hip/Pelvis X-Ray 10/30/18 11:56 IMPRESSION: Diffuse osteopenia suggests osteoporosis. Moderate bilateral sacroiliac and hip joint degenerative change. No hip fracture or or dislocation identified. No fracture of the pelvic ring grossly evident. Retained oral contrast within bowel limits interpretation of upper mid pelvis as per above. Chest X-Ray 10/30/18 15:38 IMPRESSION: No significant acute cardiopulmonary disease appreciable. Chronic prominent cardiomegaly reiterated but with resolution of prior pulmonary vascular congestion. EKG/Cardiology Studies: Cardiology / EKG Studies 10/30/18 ELECTROCARDIOGRAM Routine Comment: Mode Of Transportation: PORTABLE Reason For Exam: pre-op Critical Care Progress Note - Nutrition Nutrition: Nutrition Category Date Time Status Heart Healthy Diet [DIET] Diets 10/30/18 Breakfast Active Assessment/Plan - Date & Time Date: 10/30/18 Time: 23:31
[2018-10-31] MEDS ORDERED: Sodium Chloride 0.9% 1,000 ML IV SCH (00:15)
[2018-10-31] MEDS: Sodium Chloride 0.9% 1,000 ML IV SCH ×6 (01:59→20:00)
[2018-10-31 05:36] LABS: INR 1.4; PROTHROMBIN TIME 16.2 Seconds (9.8-13.1)
[2018-10-31 05:39] LABS: BASO # 0.1 K/uL (0.0-0.2); BASO % 3.1 % (0.0-2.0); EOS # 0.3 K/uL (0.0-0.7); LYMPH # 1.1 K/uL (1.0-4.3); LYMPH % 29.2 % (20.0-40.0); MEAN CELL VOLUME 99.9 fl (80.0-94.0); MEAN CORPUSCULAR HEMOGLOBIN 32.7 pg (27.0-31.0); MEAN CORPUSCULAR HGB CONC 32.7 g/dL (33.0-37.0); MEAN PLATELET VOLUME 8.3 fl (7.2-11.7); MONO # 0.5 K/uL (0.0-0.8); MONO % 12.1 % (0.0-10.0); NEUT # 1.8 K/uL (1.8-7.0); NEUT % 47.6 % (50.0-75.0); NRBC % 0.2 % (0.0-0.0); PLATELET COUNT 186 K/uL (130-400); RBC 3.83 Mil/uL (4.40-5.90); RED CELL DISTRIBUTION WIDTH 14.1 % (11.5-14.5); WHITE BLOOD COUNT 3.8 K/uL (4.8-10.8)
[2018-10-31 06:20] LABS: HEMOGLOBIN 12.5 g/dL (12.0-18.0)
[2018-10-31 06:25] LABS: BLOOD UREA NITROGEN 10 mg/dl (9-20); CALCIUM 8.3 mg/dL (8.4-10.2); GFR NON-AFRICAN AMERICAN > 60
[2018-10-31] MEDS: Enoxaparin 60 mg Syringe SC SCH ×2 (08:13→21:01)
--- NOTE | 2018-10-31 08:14 | CP.PCM.PN ---
Subjective - Date & Time of Evaluation Date of Evaluation: 10/31/18 Time of Evaluation: 08:05 - Subjective Subjective: Patient was seen and examined in ICU unit this morning. 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 Patient was seen alert, awake, and oriented x 3. Still tachycardic 90s-100s, and BP in low normal levels. States he still has right groin pain, worse with movements. Furosemide, Lisinopril, Metoprolol on hold this morning for now. Will monitor BP. Pending Cardiology evaluation and clearance for surgery/right inguinal hernia repair by Dr. Kearns. Patient was on Eliquis for afib. On hold since 10/30/18 for possible surgery. Switch to Therapeutic Lovenox for now. Objective - Vital Signs/Intake and Output Vital Signs (last 24 hours): Temp Pulse Resp BP Pulse Ox 98 F 90 14 99/62 L 100 10/31/18 04:30 10/31/18 06:39 10/31/18 06:39 10/31/18 06:39 10/31/18 06:39 Intake and Output: 10/31/18 10/31/18 06:59 18:59 Intake Total 3400 Output Total 1100 Balance 2300 - Medications Medications: Current Medications Acetaminophen (Tylenol 325mg Tab) 650 mg PO Q6 PRN PRN Reason: Pain, Mild (1-3) Docusate Sodium (Colace) 200 mg PO HS [facility] Last Admin: 10/30/18 23:19 Dose: 200 mg Enoxaparin Sodium (Lovenox) 60 mg SC Q12 [facility]; Protocol Last Admin: 10/30/18 23:20 Dose: 60 mg Furosemide (Lasix) 20 mg PO DAILY [facility] Last Admin: 10/30/18 09:26 Dose: 20 mg Gabapentin (Neurontin) 100 mg PO HS [facility] Last Admin: 10/30/18 23:20 Dose: 100 mg Sodium Chloride (Sodium Chloride 0.9%) 1,000 mls @ 200 mls/hr IV .Q5H [facility] Stop: 11/01/18 00:06 Last Admin: 10/31/18 04:30 Dose: 200 mls/hr Lisinopril (Zestril) 5 mg PO DAILY [facility] Metoprolol Tartrate (Lopressor) 25 mg PO Q12 [facility] Oxycodone/Acetaminophen (Percocet 5/325 Mg Tab) 1 tab PO Q6 PRN PRN Reason: Pain, moderate (4-7) Stop: 11/02/18 15:55 Last Admin: 10/30/18 16:20 Dose: 1 tab Tramadol HCl (Ultram) 50 mg PO Q6 PRN PRN Reason: Pain, severe (8-10) - Labs Labs: 10/31/18 05:19 10/31/18 05:19 PT 16.2 Seconds (9.8-13.1) H 10/31/18 05:19 INR 1.4 10/31/18 05:19 - Constitutional Appears: Non-toxic, No Acute Distress - Eye Exam Eye Exam: Normal appearance - ENT Exam ENT Exam: Mucous Membranes Moist - Respiratory Exam Respiratory Exam: Clear to Ausculation Bilateral, NORMAL BREATHING PATTERN. absent: Rales, Rhonchi, Wheezes, Respiratory Distress - Cardiovascular Exam Cardiovascular Exam: REGULAR RHYTHM, +S1, +S2 - GI/Abdominal Exam GI & Abdominal Exam: Soft, Normal Bowel Sounds. absent: Distended, Guarding, Rigid - Extremities Exam Extremities Exam: Normal Inspection. absent: Calf Tenderness, Pedal Edema - Back Exam Back Exam: NORMAL INSPECTION. absent: CVA tenderness (L), CVA tenderness (R) - Neurological Exam Neurological Exam: Alert, Awake, Oriented x3 Assessment and Plan - Assessment and Plan (Free Text) Assessment: 78 years old male with hx of Chronic A Fib on Apixaban, HTN, Dilated cardiomyopathy, admitted on 10/30/18 with second visit for right lower quadrant abdominal pain with a right inguinal hernia non strangulated seen on CT Abdomen/Pelvis. He was seen by Surgery who decided on Hernia repair. Tonight 10/30/18 the rapid response team was called for a Blood Pressure of 72/50mmHg and a Heart Rate of 70/min. Blood Pressure did not improve much after 2Liters of Normal Saline, so the patient was transferred to the ICU for additional treatment. Furosemide, Lisinopril, Metoprolol on hold this morning for now. Will monitor BP. Pending Cardiology evaluation and clearance for surgery/right inguinal hernia repair by Dr. Kearns. Patient was on Eliquis for afib. On hold since 10/30/18 for possible surgery. Switch to Therapeutic Lovenox for now. Plan: Hypotension -improving -Held home furosemide, Lisinopril, Metoprolol -s/p 2 L NS -IV fluids maintenance to maintain MAT >65 for now Right Inguinal Hernia -Surgery on consult -pain management -Surgery plans OR once patient gets cardiology clearance -Preop labs: CBC, BMA, PT/PTT this AM unremarkable -Pending cardiology eval and clearance -had an Echo done on 08/2018 reported as EF:50-55 % -preop CXR done on 10/30 reported as no acute disease, chronic stable cardiome hortencia, no evidence of pulmonary congestion -EKG on 10/30 : showed A fib rate control Chronic A fib - Cardiology on consult for clearance to surgery - Rate control with Metoprolol - was on Eliquis 5 mg BID, held on 10/30/18 for possible surgery -On therapeutic lovenox 60 mg SC BID HTN - Hold Antihypertensive medications for now due to hypotension DVT Prophylaxis On therapeutic lovenox 60 mg SC BID Full code
--- NOTE | 2018-10-31 11:33 | CP.CCUPN ---
CCU Subjective - Physician Review Events Since Last Encounter (Free Text): 10/31/18 11:35 The patient was Seen/interviewed and examined by me at the bedside during ICU round, Medical records reviewed and Management issues were discussed and formulated with the house staff. Events reviewed Patient is 69 years old male with past medical history of congestive heart failure due to valvular heart disease, atrial fibrillation on Apixaban, ASD secundum, pulmonary hypertension and dilated cardiomyopathy Patient was initially admitted to the hospital with right lower quadrant abdominal pain secondary to non-strangulated right inguinal hernia, confirmed by abdomen and pelvis CT scan He was transferred to the intensive care unit yesterday after rapid response was called for hypotension, initial blood pressure was 72/50 and heart rate of 70 Fluid resuscitation initiated and pain medication was held, blood pressure responded and adequately and he was upgraded to the intensive care unit Blood pressure improved with IV hydration of normal saline at 150 cc /hour, and he did not need any vasopressors This morning patient is alert awake oriented, feeling fine, asymptomatic except for abdominal pain Afebrile CCU Objective - Vital Signs / Intake & Output Vital Signs (Last 4 hours): Vital Signs Temp Pulse Resp BP Pulse Ox 10/31/18 10:00 86 14 86/61 L 99 10/31/18 08:00 98.3 F 87 14 101/64 100 Intake and Output (Last 8hrs): Intake & Output 10/30/18 10/31/18 10/31/18 22:59 06:59 14:59 Intake Total 3400 Output Total 1100 200 Balance 2300 -200 Weight 138 lb 14.259 oz 152 lb Intake: IV 3400 Oral 0 Output: Urine 1100 200 Urine, Voided 1100 200 Other: # Voids Urine, Voided 1 - Physical Exam Head: Positive for: Atraumatic, Normocephalic Pupils: Positive for: PERRL Extroacular Muscles: Positive for: EOMI Conjunctiva: Positive for: Normal. Negative for: Injected, Icteric Mouth: Positive for: Moist Mucous Membranes Neck: Positive for: Normal Range of Motion, Trachea Midline. Negative for: Meningeal Signs, MIDLINE TENDERNESS, Paraspinal Tenderness, JVD, Lymphadenopathy, Bruit, Other Respiratory/Chest: Positive for: Clear to Auscultation, Good Air Exchange. Negative for: Decreased Breath Sounds, Rales, Retracting, Rhonchi Cardiovascular: Positive for: Normal S1, S2, Irregular Rhythm, Peripheal Pulses Present. Negative for: Murmurs, Tachycardic, Bradycardic Abdomen: Positive for: Tenderness, Distention, Hernias (right inguinal hernia, reducible) Lower Extremity: Positive for: Normal Inspection. Negative for: Edema, CALF TENDERNESS Neurological: Positive for: GCS=15, CN II-XII Intact, Speech Normal, Motor Func Grossly Intact, Normal Sensory Function - Medications Active Medications: Active Medications Generic Name Dose Route Start Last Admin Trade Name Freq PRN Reason Stop Dose Admin Acetaminophen 650 mg 10/30/18 15:53 Tylenol 325mg Tab PO Q6 PRN Pain, Mild (1-3) Docusate Sodium 200 mg 10/30/18 22:00 10/30/18 23:19 Colace PO 200 mg HS [facility] Administration Enoxaparin Sodium 60 mg 10/30/18 21:00 10/31/18 08:13 Lovenox SC 60 mg Q12 [facility] Administration Protocol Furosemide 20 mg 10/30/18 09:00 10/30/18 09:26 Lasix PO 20 mg DAILY [facility] Administration Gabapentin 100 mg 10/30/18 22:00 10/30/18 23:20 Neurontin PO 100 mg HS [facility] Administration Sodium Chloride 1,000 mls @ 200 mls/hr 10/31/18 01:37 10/31/18 08:14 Sodium Chloride 0.9% IV 11/01/18 00:06 200 mls/hr .Q5H [facility] Administration Lisinopril 5 mg 10/31/18 09:00 Zestril PO DAILY [facility] Metoprolol Tartrate 25 mg 10/31/18 01:38 Lopressor PO Q12 [facility] Oxycodone/Acetaminophen 1 tab 10/30/18 15:54 10/30/18 16:20 Percocet 5/325 Mg Tab PO 11/02/18 15:55 1 tab Q6 PRN Administration Pain, moderate (4-7) Tramadol HCl 50 mg 10/30/18 15:53 Ultram PO Q6 PRN Pain, severe (8-10) - Patient Studies Lab Studies: Lab Studies 10/31/18 10/31/18 10/31/18 Range/Units 09:40 05:19 05:19 WBC (4.8-10.8) K/uL RBC (4.40-5.90) Mil/uL Hgb (12.0-18.0) g/dL Hct (35.0-51.0) % MCV (80.0-94.0) fl MCH (27.0-31.0) pg MCHC (33.0-37.0) g/dL RDW (11.5-14.5) % Plt Count (130-400) K/uL MPV (7.2-11.7) fl Neut % (Auto) (50.0-75.0) % Lymph % (Auto) (20.0-40.0) % Adams % (Auto) (0.0-10.0) % Eos % (Auto) (0.0-4.0) % Baso % (Auto) (0.0-2.0) % Neut # (Auto) (1.8-7.0) K/uL Lymph # (Auto) (1.0-4.3) K/uL Adams # (Auto) (0.0-0.8) K/uL Eos # (Auto) (0.0-0.7) K/uL Baso # (Auto) (0.0-0.2) K/uL PT (9.8-13.1) Seconds INR Sodium 133 (132-148) mmol/l Potassium 4.7 (3.6-5.0) MMOL/L Chloride 101 (98-107) mmol/L Carbon Dioxide 24 (22-30) mmol/L Anion Gap 13 (10-20) BUN 10 (9-20) mg/dl Creatinine 0.6 L (0.8-1.5) mg/dl Est GFR ( Amer) > 60 Est GFR (Non-Af Amer) > 60 POC Glucose (mg/dL) (65-110) mg/dL Random Glucose 95 (75-110) mg/dL Lactic Acid (0.7-2.1) mmol/L Calcium 8.3 L (8.4-10.2) mg/dL Troponin I 0.0350 0.0340 (0.00-0.120) ng/mL Blood Type A POSITIVE Antibody Screen Negative BBK History Checked Patient has bt 10/31/18 10/31/18 10/30/18 Range/Units 05:19 05:19 22:13 WBC 3.8 L (4.8-10.8) K/uL RBC 3.83 L (4.40-5.90) Mil/uL Hgb 12.5 D (12.0-18.0) g/dL Hct 38.2 (35.0-51.0) % MCV 99.9 H (80.0-94.0) fl MCH 32.7 H (27.0-31.0) pg MCHC 32.7 L (33.0-37.0) g/dL RDW 14.1 (11.5-14.5) % Plt Count 186 (130-400) K/uL MPV 8.3 (7.2-11.7) fl Neut % (Auto) 47.6 L (50.0-75.0) % Lymph % (Auto) 29.2 (20.0-40.0) % Adams % (Auto) 12.1 H (0.0-10.0) % Eos % (Auto) 8.0 H (0.0-4.0) % Baso % (Auto) 3.1 H (0.0-2.0) % Neut # (Auto) 1.8 (1.8-7.0) K/uL Lymph # (Auto) 1.1 (1.0-4.3) K/uL Adams # (Auto) 0.5 (0.0-0.8) K/uL Eos # (Auto) 0.3 (0.0-0.7) K/uL Baso # (Auto) 0.1 (0.0-0.2) K/uL PT 16.2 H (9.8-13.1) Seconds INR 1.4 Sodium (132-148) mmol/l Potassium (3.6-5.0) MMOL/L Chloride (98-107) mmol/L Carbon Dioxide (22-30) mmol/L Anion Gap (10-20) BUN (9-20) mg/dl Creatinine (0.8-1.5) mg/dl Est GFR ( Amer) Est GFR (Non-Af Amer) POC Glucose (mg/dL) 117 H (65-110) mg/dL Random Glucose (75-110) mg/dL Lactic Acid (0.7-2.1) mmol/L Calcium (8.4-10.2) mg/dL Troponin I (0.00-0.120) ng/mL Blood Type Antibody Screen BBK History Checked 10/30/18 Range/Units 14:18 WBC (4.8-10.8) K/uL RBC (4.40-5.90) Mil/uL Hgb (12.0-18.0) g/dL Hct (35.0-51.0) % MCV (80.0-94.0) fl MCH (27.0-31.0) pg MCHC (33.0-37.0) g/dL RDW (11.5-14.5) % Plt Count (130-400) K/uL MPV (7.2-11.7) fl Neut % (Auto) (50.0-75.0) % Lymph % (Auto) (20.0-40.0) % Adams % (Auto) (0.0-10.0) % Eos % (Auto) (0.0-4.0) % Baso % (Auto) (0.0-2.0) % Neut # (Auto) (1.8-7.0) K/uL Lymph # (Auto) (1.0-4.3) K/uL Adams # (Auto) (0.0-0.8) K/uL Eos # (Auto) (0.0-0.7) K/uL Baso # (Auto) (0.0-0.2) K/uL PT (9.8-13.1) Seconds INR Sodium (132-148) mmol/l Potassium (3.6-5.0) MMOL/L Chloride (98-107) mmol/L Carbon Dioxide (22-30) mmol/L Anion Gap (10-20) BUN (9-20) mg/dl Creatinine (0.8-1.5) mg/dl Est GFR ( Amer) Est GFR (Non-Af Amer) POC Glucose (mg/dL) (65-110) mg/dL Random Glucose (75-110) mg/dL Lactic Acid 2.0 (0.7-2.1) mmol/L Calcium (8.4-10.2) mg/dL Troponin I (0.00-0.120) ng/mL Blood Type Antibody Screen BBK History Checked Laboratory Results - last 24 hr 10/30/18 10/30/18 10/31/18 14:18 22:13 05:19 WBC RBC Hgb Hct MCV MCH MCHC RDW Plt Count MPV Neut % (Auto) Lymph % (Auto) Adams % (Auto) Eos % (Auto) Baso % (Auto) Neut # (Auto) Lymph # (Auto) Adams # (Auto) Eos # (Auto) Baso # (Auto) PT 16.2 H INR 1.4 Sodium Potassium Chloride Carbon Dioxide Anion Gap BUN Creatinine Est GFR ( Amer) Est GFR (Non-Af Amer) POC Glucose (mg/dL) 117 H Random Glucose Lactic Acid 2.0 Calcium Troponin I Blood Type Antibody Screen BBK History Checked 10/31/18 10/31/18 10/31/18 05:19 05:19 05:19 WBC 3.8 L RBC 3.83 L Hgb 12.5 D Hct 38.2 MCV 99.9 H MCH 32.7 H MCHC 32.7 L RDW 14.1 Plt Count 186 MPV 8.3 Neut % (Auto) 47.6 L Lymph % (Auto) 29.2 Adams % (Auto) 12.1 H Eos % (Auto) 8.0 H Baso % (Auto) 3.1 H Neut # (Auto) 1.8 Lymph # (Auto) 1.1 Adams # (Auto) 0.5 Eos # (Auto) 0.3 Baso # (Auto) 0.1 PT INR Sodium 133 Potassium 4.7 Chloride 101 Carbon Dioxide 24 Anion Gap 13 BUN 10 Creatinine 0.6 L Est GFR ( Amer) > 60 Est GFR (Non-Af Amer) > 60 POC Glucose (mg/dL) Random Glucose 95 Lactic Acid Calcium 8.3 L Troponin I 0.0340 Blood Type A POSITIVE Antibody Screen Negative BBK History Checked Patient has bt 10/31/18 09:40 WBC RBC Hgb Hct MCV MCH MCHC RDW Plt Count MPV Neut % (Auto) Lymph % (Auto) Adams % (Auto) Eos % (Auto) Baso % (Auto) Neut # (Auto) Lymph # (Auto) Adams # (Auto) Eos # (Auto) Baso # (Auto) PT INR Sodium Potassium Chloride Carbon Dioxide Anion Gap BUN Creatinine Est GFR ( Amer) Est GFR (Non-Af Amer) POC Glucose (mg/dL) Random Glucose Lactic Acid Calcium Troponin I 0.0350 Blood Type Antibody Screen BBK History Checked Radiology Impressions: Radiology Impressions Hip/Pelvis X-Ray 10/30/18 11:56 IMPRESSION: Diffuse osteopenia suggests osteoporosis. Moderate bilateral sacroiliac and hip joint degenerative change. No hip fracture or or dislocation identified. No fracture of the pelvic ring grossly evident. Retained oral contrast within bowel limits interpretation of upper mid pelvis as per above. Chest X-Ray 10/30/18 15:38 IMPRESSION: No significant acute cardiopulmonary disease appreciable. Chronic prominent cardiomegaly reiterated but with resolution of prior pulmonary vascular congestion. Review of Systems - Cardiovascular Cardiovascular: absent: As Per HPI, Acrocyanosis, Chest Pain, Chest Pain at Rest, Chest Pain with Activity, Claudication, Diaphoresis, Dyspnea, Dyspnea on Exertion, Edema, Irregular Heart Rhythm, Pain Radiating to Arm/Neck/Jaw, Leg Edema, Leg Ulcers, Lightheadedness, Orthopnea, Palpitations, Paroxysmal Nocturnal Dyspnea, Pedal Edema, Radiating Pain, Rapid Heart Rate, Slow Heart Rate, Syncope, Other, UNREMARKABLE - Respiratory Respiratory: absent: As Per HPI, Cough, Dyspnea, Hemoptysis, Dyspnea on Exertion, Wheezing, Snoring, Stridor, Pain on Inspiration, Chest Congestion, Excessive Mucous Production, Change in Mucous Color, Pain with Coughing, Other, UNREMARKABLE Critical Care Progress Note - Extremities/Vascular Does the Patient have a Central Venous Catheter?: No Does the Patient need a Central Venous Catheter?: No Does the Patient have a Jacobson Catheter?: No Does the Patient need a Jacobson Catheter?: No - Nutrition Nutrition: Nutrition Category Date Time Status Heart Healthy Diet [DIET] Diets 10/30/18 Breakfast Active Assessment/Plan (1) Hernia, inguinal, right Current Visit: Yes Status: Acute Priority: High (2) Intractable abdominal pain Current Visit: Yes Status: Acute Priority: High (3) Atrial fibrillation Current Visit: Yes Status: Chronic Priority: High (4) CHF due to valvular disease Current Visit: Yes Status: Acute Priority: High (5) ASD secundum Current Visit: No Status: Chronic (6) Aortic insufficiency Current Visit: No Status: Chronic (7) Biatrial enlargement Current Visit: No Status: Chronic (8) Enlarged RV (right ventricle) Current Visit: No Status: Chronic - Assessment and Plan (Free Text) Assessment: Patient hemodynamically improved and blood pressure is currently 110s systolic, Heart rate is well controlled with metoprolol planning to continue IV hydration with normal saline at 150 cc/h Consent obtained for the central line but no vasopressor needed at this time Recent echocardiogram reviewed with extensive valvular heart disease ASD congestive heart failure with EF of 50-55% and pulmonary hypertension Surgery planned after cardiology clearance Anticoagulation with Eliquis on hold will restart after surgery, Patient currenty on Lovenox 60 mg SC Q12 Pain is controlled at this point with as needed Tylenol and as needed tramadol, minimizing the use of narcotics with Percocet of 1 tablet for moderate to severe pain
--- NOTE | 2018-10-31 13:52 | CP.PCM.PN ---
Subjective - Date & Time of Evaluation Date of Evaluation: 10/31/18 Time of Evaluation: 12:10 - Subjective Subjective: Patient was seen and examined at the bedside. Reports some pain to the right inguinal region. Objective - Vital Signs/Intake and Output Vital Signs (last 24 hours): Temp Pulse Resp BP Pulse Ox 98.0 F 101 H 16 114/86 96 10/31/18 12:00 10/31/18 12:00 10/31/18 12:00 10/31/18 12:00 10/31/18 12:00 Intake and Output: 10/31/18 10/31/18 06:59 18:59 Intake Total 3400 Output Total 1100 400 Balance 2300 -400 - Medications Medications: Current Medications Acetaminophen (Tylenol 325mg Tab) 650 mg PO Q6 PRN PRN Reason: Pain, Mild (1-3) Docusate Sodium (Colace) 200 mg PO HS [facility] Last Admin: 10/30/18 23:19 Dose: 200 mg Enoxaparin Sodium (Lovenox) 60 mg SC Q12 [facility]; Protocol Last Admin: 10/31/18 08:13 Dose: 60 mg Furosemide (Lasix) 20 mg PO DAILY [facility] Last Admin: 10/30/18 09:26 Dose: 20 mg Gabapentin (Neurontin) 100 mg PO HS [facility] Last Admin: 10/30/18 23:20 Dose: 100 mg Sodium Chloride (Sodium Chloride 0.9%) 1,000 mls @ 200 mls/hr IV .Q5H [facility] Stop: 11/01/18 00:06 Last Admin: 10/31/18 12:08 Dose: 200 mls/hr Lisinopril (Zestril) 5 mg PO DAILY [facility] Metoprolol Tartrate (Lopressor) 25 mg PO Q12 [facility] Oxycodone/Acetaminophen (Percocet 5/325 Mg Tab) 1 tab PO Q6 PRN PRN Reason: Pain, moderate (4-7) Stop: 11/02/18 15:55 Last Admin: 10/30/18 16:20 Dose: 1 tab Tramadol HCl (Ultram) 50 mg PO Q6 PRN PRN Reason: Pain, severe (8-10) - Labs Labs: 10/31/18 05:19 10/31/18 05:19 PT 16.2 Seconds (9.8-13.1) H 10/31/18 05:19 INR 1.4 10/31/18 05:19 - Constitutional Appears: Well, Non-toxic, No Acute Distress - Head Exam Head Exam: ATRAUMATIC, NORMAL INSPECTION, NORMOCEPHALIC - Eye Exam Eye Exam: EOMI, Normal appearance, PERRL Pupil Exam: NORMAL ACCOMODATION, PERRL - ENT Exam ENT Exam: Mucous Membranes Moist, Normal Exam - Neck Exam Neck Exam: Full ROM, Normal Inspection - Respiratory Exam Respiratory Exam: Clear to Ausculation Bilateral, NORMAL BREATHING PATTERN - Cardiovascular Exam Cardiovascular Exam: REGULAR RHYTHM, +S1, +S2 - GI/Abdominal Exam GI & Abdominal Exam: Soft, Normal Bowel Sounds Additional comments: mildly tender in the right inguinal region, ND, BS+, no rebound, no guarding, reducible right inguinal hernia - Rectal Exam Rectal Exam: Deferred - Extremities Exam Extremities Exam: Full ROM, Normal Inspection - Back Exam Back Exam: NORMAL INSPECTION - Neurological Exam Neurological Exam: Alert, Awake, Oriented x3 - Psychiatric Exam Psychiatric exam: Normal Affect, Normal Mood - Skin Skin Exam: Dry, Intact, Normal Color, Warm Assessment and Plan - Assessment and Plan (Free Text) Assessment: 78 y.o. male with right inguinal hernia Plan: - continue diet - Hold anticoagulation - Cardiology consultation for clearance for surgery - Will perform right inguinal hernia repair once patient is cleared from the cardiac stand point - Will follow
--- NOTE | 2018-10-31 15:22 | CP.PCM.CON ---
History of Present Illness - History of Present Illness History of Present Illness: PT ADMITTED WITH ABD PAIN AND HERNIA. PT NEEDS HERNIA REPAIR. ASKED TO SEE PT FOR PRE-OP CARDIAC EVAL. PT DENIES ANY RECENT CP OR SOB, ORTHOPNEA, PND, KAYA, PALP, DIZZINESS, SYNCOPE. Review of Systems - Constitutional Constitutional: As Per HPI - EENT Eyes: As Per HPI Ears: As Per HPI Nose/Mouth/Throat: As Per HPI - Cardiovascular Cardiovascular: As Per HPI - Respiratory Respiratory: As Per HPI - Gastrointestinal Gastrointestinal: As Per HPI - Genitourinary Genitourinary: As Per HPI - Reproductive: Male Reproductive:Male: As Per HPI - Musculoskeletal Musculoskeletal: As Per HPI - Integumentary Integumentary: As Per HPI - Neurological Neurological: As Per HPI - Psychiatric Psychiatric: As Per HPI - Endocrine Endocrine: As Per HPI - Hematologic/Lymphatic Hematologic: As Per HPI Past Patient History - Tetanus Immunizations Tetanus Immunization: Unknown - Past Medical History & Family History Past Medical History?: No - Past Social History Smoking Status: Never Smoked Alcohol: None Drugs: Denies Home Situation {Lives}: Alone - CARDIAC Hx Cardiac Disorders: Yes (a-fib, chf) - PULMONARY Hx Asthma: Yes - NEUROLOGICAL Hx Neurological Disorder: No - HEENT Hx HEENT Problems: No - RENAL Hx Chronic Kidney Disease: No - ENDOCRINE/METABOLIC Hx Endocrine Disorders: No - HEMATOLOGICAL/ONCOLOGICAL Hx Human Immunodeficiency Virus (HIV): No - INTEGUMENTARY Hx Dermatological Problems: No - MUSCULOSKELETAL/RHEUMATOLOGICAL Hx Musculoskeletal Disorders: No - GASTROINTESTINAL Hx Gastrointestinal Disorders: No - GENITOURINARY/GYNECOLOGICAL Hx Genitourinary Disorders: No - PSYCHIATRIC Hx Psychophysiologic Disorder: No - SURGICAL HISTORY Hx Surgeries: No - ANESTHESIA Hx Anesthesia: No Meds Allergies/Adverse Reactions: Allergies Allergy/AdvReac Type Severity Reaction Status Date / Time No Known Allergies Allergy Verified 10/29/18 22:28 - Medications Medications: Current Medications Acetaminophen (Tylenol 325mg Tab) 650 mg PO Q6 PRN PRN Reason: Pain, Mild (1-3) Docusate Sodium (Colace) 200 mg PO HS [facility] Last Admin: 10/30/18 23:19 Dose: 200 mg Enoxaparin Sodium (Lovenox) 60 mg SC Q12 [facility]; Protocol Last Admin: 10/31/18 08:13 Dose: 60 mg Furosemide (Lasix) 20 mg PO DAILY [facility] Last Admin: 10/30/18 09:26 Dose: 20 mg Gabapentin (Neurontin) 100 mg PO HS [facility] Last Admin: 10/30/18 23:20 Dose: 100 mg Sodium Chloride (Sodium Chloride 0.9%) 1,000 mls @ 200 mls/hr IV .Q5H [facility] Stop: 11/01/18 00:06 Last Admin: 10/31/18 12:08 Dose: 200 mls/hr Lisinopril (Zestril) 5 mg PO DAILY [facility] Metoprolol Tartrate (Lopressor) 25 mg PO Q12 [facility] Oxycodone/Acetaminophen (Percocet 5/325 Mg Tab) 1 tab PO Q6 PRN PRN Reason: Pain, moderate (4-7) Stop: 11/02/18 15:55 Last Admin: 10/30/18 16:20 Dose: 1 tab Tramadol HCl (Ultram) 50 mg PO Q6 PRN PRN Reason: Pain, severe (8-10) Physical Exam - Constitutional Appears: Non-toxic - Head Exam Head Exam: ATRAUMATIC, NORMAL INSPECTION, NORMOCEPHALIC - Eye Exam Eye Exam: EOMI, Normal appearance, PERRL. absent: Conjunctival injection, Nystagmus, Periorbital swelling, Periorbital tenderness, Scleral icterus Pupil Exam: NORMAL ACCOMODATION, PERRL. absent: Fixed, Irregular, Miosis, Mydriatic, Unequal - ENT Exam ENT Exam: Mucous Membranes Moist, Normal Exam. absent: Mucous Membranes Dry, Normal External Ear Exam, Normal Oropharynx, TM's Normal Bilaterally - Neck Exam Neck exam: Positive for: Normal Inspection. Negative for: Full Rom, Lymphadenopathy, Meningismus, Tenderness, Thyromegaly - Respiratory Exam Respiratory Exam: Clear to Auscultation Bilateral, NORMAL BREATHING PATTERN. absent: Accessory Muscle Use, Chest Wall Tenderness, Decreased Breath Sounds, Prolonged Expiratory Phase, Rales, Rhonchi, Wheezes, Respiratory Distress, Strid or - Cardiovascular Exam Cardiovascular Exam: Irregular Rhythm, +S1, +S2, Systolic Murmur. absent: Bradycardia, Tachycardia, Clicks, Diastolic murmur, Gallop, REGULAR RHYTHM, JVD, RRR, Rubs, +S4 - GI/Abdominal Exam GI & Abdominal Exam: Hernia. absent: Bruit, Diminished Bowel Sounds, Distended, Firm, Guarding, Hyperactive Bowel Sounds, Hypoactive Bowel Sounds, Mass, Normal Bowel Sounds, Organomegaly, Pulsatile Mass, Rebound, Rigid, Soft, Tenderness - Rectal Exam Rectal Exam: Deferred - Back Exam Back exam: NORMAL INSPECTION. absent: CVA tenderness (L), CVA tenderness (R), FULL ROM, muscle spasm, paraspinal tenderness, rash noted, tenderness, vertebral tenderness - Neurological Exam Neurological exam: Alert, CN II-XII Intact, Normal Gait, Oriented x3, Reflexes Normal - Psychiatric Exam Psychiatric exam: Normal Affect, Normal Mood - Skin Skin Exam: Dry, Intact, Normal Color, Warm Results - Vital Signs Recent Vital Signs: Last Vital Signs Temp 98.0 F 10/31/18 12:00 Pulse 97 H 10/31/18 14:00 Resp 16 10/31/18 14:00 BP 114/86 10/31/18 14:00 Pulse Ox 95 10/31/18 14:00 - Labs Result Diagrams: 10/31/18 05:19 10/31/18 05:19 Labs: Laboratory Results - last 24 hr 10/30/18 10/31/18 10/31/18 22:13 05:19 05:19 WBC 3.8 L RBC 3.83 L Hgb 12.5 D Hct 38.2 MCV 99.9 H MCH 32.7 H MCHC 32.7 L RDW 14.1 Plt Count 186 MPV 8.3 Neut % (Auto) 47.6 L Lymph % (Auto) 29.2 Mcculloch % (Auto) 12.1 H Eos % (Auto) 8.0 H Baso % (Auto) 3.1 H Neut # (Auto) 1.8 Lymph # (Auto) 1.1 M[place]ulloch # (Auto) 0.5 Eos # (Auto) 0.3 Baso # (Auto) 0.1 PT 16.2 H INR 1.4 Sodium Potassium Chloride Carbon Dioxide Anion Gap BUN Creatinine Est GFR ( Amer) Est GFR (Non-Af Amer) POC Glucose (mg/dL) 117 H Random Glucose Calcium Troponin I Blood Type Antibody Screen BBK History Checked 10/31/18 10/31/18 10/31/18 05:19 05:19 09:40 WBC RBC Hgb Hct MCV MCH MCHC RDW Plt Count MPV Neut % (Auto) Lymph % (Auto) Mcculloch % (Auto) Eos % (Auto) Baso % (Auto) Neut # (Auto) Lymph # (Auto) M[place]ulloch # (Auto) Eos # (Auto) Baso # (Auto) PT INR Sodium 133 Potassium 4.7 Chloride 101 Carbon Dioxide 24 Anion Gap 13 BUN 10 Creatinine 0.6 L Est GFR ( Amer) > 60 Est GFR (Non-Af Amer) > 60 POC Glucose (mg/dL) Random Glucose 95 Calcium 8.3 L Troponin I 0.0340 0.0350 Blood Type A POSITIVE Antibody Screen Negative BBK History Checked Patient has bt Assessment & Plan (1) Preop cardiovascular exam Status: Acute (2) Hernia, inguinal, right Status: Acute Priority: High (3) Atrial fibrillation Status: Chronic Priority: High (4) ASD secundum Status: Chronic (5) Aortic insufficiency Status: Chronic (6) Biatrial enlargement Status: Chronic (7) Mitral regurgitation Status: Chronic (8) Tricuspid regurgitation Status: Chronic - Assessment and Plan (Free Text) Plan: PT MAY PROCEED WITH HERNIA SURGERY, HE IS LOW TO INTERMEDIATE RISK FROM CARDIAC POINT OF VIEW. WOULD LIMIT PTS IVFS AT THIS POINT GIVEN HIS PRIOR HX OF VALVULAR HEART DISEASE AND RV DILATATION. WOULD ALSO LIMIT LASIX UNTIL PT IS TAKING IN PO NORMALLY. 45 MIN TOTAL CARE
[2018-10-31 15:55] LABS: BANDS 2 % (0-2); BASOPHIL 2 % (0-2); EOSINOPHIL 2 % (0-7); LYMPHOCYTE 20 % (20-50); MONOCYTE 11 % (0-10); NEUTROPHIL 63 % (42-75); PLATELET ESTIMATE NORMAL (NORMAL); TOTAL CELLS COUNTED 100
[2018-10-31 15:57] LABS: BURR CELLS SLIGHT
[2018-10-31] MEDS ORDERED: Digoxin 0.05 mg/mL Elixir 5mL PO ONE (18:30)
[2018-10-31] MEDS ORDERED: Digoxin 250 mcg (0.25 mg) Tab PO ONE (20:00)
[2018-10-31 21:03] VITALS: PULSE 105
[2018-11-01] MEDS: Sodium Chloride 0.9% 1,000 ML IV SCH ×3 (03:45→21:31)
[2018-11-01 05:28] LABS: HEMOGLOBIN 12.6 g/dL (12.0-18.0); MEAN CELL VOLUME 99.3 fl (80.0-94.0); MEAN CORPUSCULAR HEMOGLOBIN 32.8 pg (27.0-31.0); MEAN CORPUSCULAR HGB CONC 33.1 g/dL (33.0-37.0); RBC 3.85 Mil/uL (4.40-5.90); RED CELL DISTRIBUTION WIDTH 14.3 % (11.5-14.5); WHITE BLOOD COUNT 3.8 K/uL (4.8-10.8)
[2018-11-01 05:43] LABS: BLOOD UREA NITROGEN 10 mg/dl (9-20); CALCIUM 8.5 mg/dL (8.4-10.2); GFR NON-AFRICAN AMERICAN > 60
--- NOTE | 2018-11-01 08:23 | CP.PCM.PN ---
Subjective - Date & Time of Evaluation Date of Evaluation: 11/01/18 Time of Evaluation: 08:25 - Subjective Subjective: Patient was seen and examined at bedside this morning. Patient in telemetry unit. Alert, awake, and oriented x 3. Still complaining of right groin pain. Denies urinary symptoms. Having daily and normal BMs. Last BMs was this morning. Denies CP/SOB/N/V. Transferred from ICU to telemetry yesterday. Seen and evaluated by Cardiology, Dr. Laboy. Cleared by Cardiology for right inguinal hernia repair. Patient for possible OR tomorrow morning by surgical team. Will be NPO after midnight, will hold Lovenox. Objective - Vital Signs/Intake and Output Vital Signs (last 24 hours): Temp Pulse Resp BP Pulse Ox 98.4 F 91 H 20 107/76 96 11/01/18 07:41 11/01/18 07:41 11/01/18 07:41 11/01/18 07:41 11/01/18 07:41 Intake and Output: 11/01/18 11/01/18 06:59 18:59 Intake Total 645 Output Total 800 Balance -155 - Medications Medications: Current Medications Acetaminophen (Tylenol 325mg Tab) 650 mg PO Q6 PRN PRN Reason: Pain, Mild (1-3) Docusate Sodium (Colace) 200 mg PO [facility] Last Admin: 10/31/18 21:02 Dose: 200 mg Enoxaparin Sodium (Lovenox) 60 mg SC Q12 [facility]; Protocol Last Admin: 10/31/18 21:01 Dose: 60 mg Furosemide (Lasix) 20 mg PO DAILY [facility] Last Admin: 10/30/18 09:26 Dose: 20 mg Gabapentin (Neurontin) 100 mg PO [facility] Last Admin: 10/31/18 21:01 Dose: 100 mg Sodium Chloride (Sodium Chloride 0.9%) 1,000 mls @ 120 mls/hr IV .Q8H20M [facility] Stop: 11/01/18 19:27 Last Admin: 11/01/18 03:45 Dose: 120 mls/hr Lisinopril (Zestril) 5 mg PO DAILY [facility] Metoprolol Tartrate (Lopressor) 25 mg PO Q12 [facility] Oxycodone/Acetaminophen (Percocet 5/325 Mg Tab) 1 tab PO Q6 PRN PRN Reason: Pain, moderate (4-7) Stop: 11/02/18 15:55 Last Admin: 10/30/18 16:20 Dose: 1 tab Tramadol HCl (Ultram) 50 mg PO Q6 PRN PRN Reason: Pain, severe (8-10) Last Admin: 11/01/18 03:44 Dose: 50 mg - Labs Labs: 11/01/18 05:00 11/01/18 05:00 PT 16.2 Seconds (9.8-13.1) H 10/31/18 05:19 INR 1.4 10/31/18 05:19 - Skin Additional comments: Constitutional Appears: Non-toxic, No Acute Distress - Eye Exam Eye Exam: Normal appearance - ENT Exam ENT Exam: Mucous Membranes Moist - Respiratory Exam Respiratory Exam: Clear to Ausculation Bilateral, NORMAL BREATHING PATTERN. absent: Rales, Rhonchi, Wheezes, Respiratory Distress - Cardiovascular Exam Cardiovascular Exam: REGULAR RHYTHM, +S1, +S2 - GI/Abdominal Exam GI & Abdominal Exam: Soft, Normal Bowel Sounds. absent: Distended, Guarding, Rigid - Extremities Exam Extremities Exam: Normal Inspection. absent: Calf Tenderness, Pedal Edema - Back Exam Back Exam: NORMAL INSPECTION. absent: CVA tenderness (L), CVA tenderness (R) - Neurological Exam Neurological Exam: Alert, Awake, Oriented x3 Assessment and Plan - Assessment and Plan (Free Text) Assessment: 78 years old male with hx of Chronic A Fib on Apixaban, HTN, Dilated cardiomyopathy, admitted on 10/30/18 with second visit for right lower quadrant abdominal pain with a right inguinal hernia non strangulated seen on CT Abdomen/Pelvis. He was seen by Surgery who decided on Hernia repair. Tonight 10/30/18 the rapid response team was called for a Blood Pressure of 72/50mmHg and a Heart Rate of 70/min. Blood Pressure did not improve much after 2Liters of Normal Saline, so the patient was transferred to the ICU for additional treatment. Furosemide, Lisinopril, Metoprolol on hold this morning for now. Will monitor BP. Pending Cardiology evaluation and clearance for surgery/right inguinal hernia repair by Dr. Kearns. Patient was on Eliquis for afib. On hold since 10/30/18 for possible surgery. Switched to Therapeutic Lovenox on 10/30/18. Plan: Hypotension -improving -Held home furosemide, Lisinopril, Metoprolol since 10/31 -s/p 2 L NS -IV fluids maintenance to maintain MAT >65 for now Right Inguinal Hernia -Surgery on consult -pain management -cleared by Cardiology for surgery -possible OR on 11/02 vs 11/03 AM -will be NPO after midnight -IV fluids while NPO -Lovenox will be held this afternoon and tomorrow morning due surgery -Preop labs: CBC, BMA, PT/PTT this AM unremarkable -had an Echo done on 08/2018 reported as EF:50-55 % -preop CXR done on 10/30 reported as no acute disease, chronic stable cardiomegaly, no evidence of pulmonary congestion -EKG on 10/30 : showed A fib rate control Chronic A fib -c/w java technical manager in telemetry -Metoprolol on hold due to hypotension -s/p Digoxin 0.5 mg PO once yesterday - was on Eliquis 5 mg BID, held on 10/30/18 for possible surgery -On therapeutic lovenox 60 mg SC BID, will be held this afternoon and tomorrow morning due surgery HTN - Hold Antihypertensive medications for now due to hypotension DVT Prophylaxis On therapeutic lovenox 60 mg SC BID Full code
[2018-11-01] MEDS: Enoxaparin 60 mg Syringe SC SCH (09:12)
[2018-11-01] MEDS: Oxycodone/Acetaminophen 5/325 mg Tab PO PRN ×2 (09:21→17:00)
--- NOTE | 2018-11-01 10:48 | CP.PCM.PN ---
Subjective - Date & Time of Evaluation Date of Evaluation: 11/01/18 Time of Evaluation: 10:38 - Subjective Subjective: pt seen and examined at bedside, no overnight events. Pt is tolerating, denies any nausea or vomiting. +flatus. Pt continues to report right groin pain. gen: awake, alert, NAD HEENT: NC/AT, EOMI, pERRLA no acute respiratory distress abd: soft, NT, ND, reducible right inguinal hernia 78yo M with reducible right inguinal hernia -cadiology consult appreaciated - cleared for surgery -hold lovenox -possible right inguinal hernia repair 11/02 vs 11/03 Objective - Vital Signs/Intake and Output Vital Signs (last 24 hours): Temp Pulse Resp BP Pulse Ox 98.4 F 91 H 20 107/76 96 11/01/18 07:41 11/01/18 07:41 11/01/18 07:41 11/01/18 07:41 11/01/18 07:41 Intake and Output: 11/01/18 11/01/18 06:59 18:59 Intake Total 645 Output Total 800 Balance -155 - Medications Medications: Current Medications Acetaminophen (Tylenol 325mg Tab) 650 mg PO Q6 PRN PRN Reason: Pain, Mild (1-3) Docusate Sodium (Colace) 200 mg PO [facility] Last Admin: 10/31/18 21:02 Dose: 200 mg Enoxaparin Sodium (Lovenox) 60 mg SC Q12 [facility]; Protocol Last Admin: 11/01/18 09:12 Dose: 60 mg Furosemide (Lasix) 20 mg PO DAILY [facility] Last Admin: 10/30/18 09:26 Dose: 20 mg Gabapentin (Neurontin) 100 mg PO [facility] Last Admin: 10/31/18 21:01 Dose: 100 mg Sodium Chloride (Sodium Chloride 0.9%) 1,000 mls @ 120 mls/hr IV .Q8H20M [facility] Stop: 11/01/18 19:27 Last Admin: 11/01/18 03:45 Dose: 120 mls/hr Lisinopril (Zestril) 5 mg PO DAILY [facility] Metoprolol Tartrate (Lopressor) 25 mg PO Q12 [facility] Oxycodone/Acetaminophen (Percocet 5/325 Mg Tab) 1 tab PO Q6 PRN PRN Reason: Pain, moderate (4-7) Stop: 11/02/18 15:55 Last Admin: 11/01/18 09:21 Dose: 1 tab Tramadol HCl (Ultram) 50 mg PO Q6 PRN PRN Reason: Pain, severe (8-10) Last Admin: 11/01/18 03:44 Dose: 50 mg - Labs Labs: 11/01/18 05:00 11/01/18 05:00 PT 16.2 Seconds (9.8-13.1) H 10/31/18 05:19 INR 1.4 10/31/18 05:19
[2018-11-01] MEDS ORDERED: Ergocalciferol 50,000 Intl Units Cap PO SCH (16:00)
[2018-11-02 06:16] LABS: HEMOGLOBIN 13.2 g/dL (12.0-18.0); MEAN CELL VOLUME 99.2 fl (80.0-94.0); MEAN CORPUSCULAR HEMOGLOBIN 33.2 pg (27.0-31.0); MEAN CORPUSCULAR HGB CONC 33.5 g/dL (33.0-37.0); RBC 3.96 Mil/uL (4.40-5.90); RED CELL DISTRIBUTION WIDTH 14.3 % (11.5-14.5); WHITE BLOOD COUNT 4.4 K/uL (4.8-10.8)
[2018-11-02 06:42] LABS: BLOOD UREA NITROGEN 14 mg/dl (9-20); CALCIUM 8.8 mg/dL (8.4-10.2); GFR NON-AFRICAN AMERICAN > 60
--- NOTE | 2018-11-02 06:51 | CP.PCM.PN ---
Subjective - Date & Time of Evaluation Date of Evaluation: 11/02/18 Time of Evaluation: 08:40 - Subjective Subjective: Patient was seen and examined at bedside this morning. Patient in telemetry unit. Alert, awake, and oriented x 3. Still complaining of right groin pain. Denies urinary symptoms. Having daily and normal BMs. Last BMs was this morning. Denies CP/SOB/N/V. Cleared by Cardiology for right inguinal hernia repair. Patient is scheduled for OR this morning by surgical team. NPO since midnight, on hold Lovenox since yesterday PM. Objective - Vital Signs/Intake and Output Vital Signs (last 24 hours): Temp Pulse Resp BP Pulse Ox 98.2 F 96 H 20 118/70 96 11/02/18 05:06 11/02/18 05:06 11/02/18 05:06 11/02/18 05:06 11/02/18 05:06 - Medications Medications: Current Medications Acetaminophen (Tylenol 325mg Tab) 650 mg PO Q6 PRN PRN Reason: Pain, Mild (1-3) Docusate Sodium (Colace) 200 mg PO [facility] Last Admin: 11/01/18 21:30 Dose: 200 mg Enoxaparin Sodium (Lovenox) 60 mg SC Q12 [facility]; Protocol Last Admin: 11/01/18 09:12 Dose: 60 mg Ergocalciferol (Drisdol 50,000 Intl Units Cap) 1 cap PO Q7D [facility] Last Admin: 11/01/18 16:56 Dose: 1 cap Furosemide (Lasix) 20 mg PO DAILY [facility] Last Admin: 10/30/18 09:26 Dose: 20 mg Gabapentin (Neurontin) 100 mg PO HS [facility] Last Admin: 11/01/18 21:30 Dose: 100 mg Sodium Chloride (Sodium Chloride 0.9%) 1,000 mls @ 100 mls/hr IV .Q10H [facility] Stop: 11/02/18 20:02 Last Admin: 11/01/18 21:31 Dose: 100 mls/hr Lisinopril (Zestril) 5 mg PO DAILY [facility] Metoprolol Tartrate (Lopressor) 25 mg PO Q12 [facility] Oxycodone/Acetaminophen (Percocet 5/325 Mg Tab) 1 tab PO Q6 PRN PRN Reason: Pain, moderate (4-7) Stop: 11/02/18 15:55 Last Admin: 11/01/18 17:00 Dose: 1 tab Tramadol HCl (Ultram) 50 mg PO Q6 PRN PRN Reason: Pain, severe (8-10) Last Admin: 11/01/18 03:44 Dose: 50 mg - Labs Labs: 11/02/18 04:45 11/02/18 04:45 PT 16.2 Seconds (9.8-13.1) H 10/31/18 05:19 INR 1.4 10/31/18 05:19 - Skin Additional comments: Constitutional Appears: Non-toxic, No Acute Distress - Eye Exam Eye Exam: Normal appearance - ENT Exam ENT Exam: Mucous Membranes Moist - Respiratory Exam Respiratory Exam: Clear to Ausculation Bilateral, NORMAL BREATHING PATTERN. absent: Rales, Rhonchi, Wheezes, Respiratory Distress - Cardiovascular Exam Cardiovascular Exam: REGULAR RHYTHM, +S1, +S2 - GI/Abdominal Exam GI & Abdominal Exam: Soft, Normal Bowel Sounds. absent: Distended, Guarding, Rigid - Extremities Exam Extremities Exam: Normal Inspection. absent: Calf Tenderness, Pedal Edema - Back Exam Back Exam: NORMAL INSPECTION. absent: CVA tenderness (L), CVA tenderness (R) - Neurological Exam Neurological Exam: Alert, Awake, Oriented x3 Assessment and Plan - Assessment and Plan (Free Text) Assessment: 78 y/o M with PMH dilated cardiomyopathy , ASD secundum,HTN, Chronic Afib recently diagnosed with bilateral inguinal hernia presented with intractable right groin pain .CT showed not incarcerated hernia. Surgery was consulted and decided to take patient to OR once cleared by cardiology. While in hospital developed hypotension, BP 72/50,transferred to ICU and started on IVF resuscitation .Furosemide, Lisinopril, Metoprolol on hold for now due to hypotension. Cleared by Cardiology for surgery/ right inguinal hernia repair. Patient was on Eliquis for afib. On hold since 10/30/18 for possible surgery. Switched to Therapeutic Lovenox on 10/30/18. Scheduled for surgery today 11/02 in AM. Lovenox on hold since yesterday PM. Plan: Hypotension -improving/stable/possible medication induced -Held home furosemide, Lisinopril, Metoprolol since 10/31 Not incarcerated bilateral inguinal hernia with intractable pain -Surgery on consult -pain management with tylenol, percocet and tramadol as per pain scale -cleared by Cardiology for surgery -possible OR on 11/02 AM -NPO after midnight -IV fluids while NPO -Lovenox on hold since yesterday PM, will resume after surgery -Preop labs: CBC, BMA, PT/PTT this AM unremarkable -had an Echo done on 08/2018 reported as EF:50-55 % -preop CXR done on 10/30 reported as no acute disease, chronic stable cardi omegaly, no evidence of pulmonary congestion -EKG on 10/30 : showed A fib rate control Chronic A fib -c/w residential monitor in telemetry -Metoprolol on hold due to hypotension -s/p Digoxin 0.5 mg PO once yesterday - was on Eliquis 5 mg BID, held on 10/30/18 for possible surgery -On therapeutic lovenox 60 mg SC BID. Lovenox on hold since yesterday PM, will resume after surgery HTN - Hold Antihypertensive medications for now due to hypotension Vitamin D deficiency Started on Vitamin D DVT Prophylaxis On therapeutic lovenox 60 mg SC BID, on hold for surgery Full code
[2018-11-02] MEDS: Sodium Chloride 0.9% 1,000 ML IV SCH (08:24)
[2018-11-02] MEDS ORDERED: Bupivacaine 0.5% Inj(30mL) ONE (09:08)
[2018-11-02] MEDS ORDERED: Bupivacaine 0.25%-Epinephrine 1:200,000 (30 ml) Inj ONE (10:13)
[2018-11-02] MEDS ORDERED: Lidocaine 2% MPF (5 ml) Inj ONE (10:19)
[2018-11-02] MEDS ORDERED: Lactated Ringer's 500 ML IV ONE (10:35)
[2018-11-02] MEDS ORDERED: Lidocaine 1% Inj (20ml) IJ ONE ×2 (11:12)
[2018-11-02] MEDS ORDERED: Propofol 10 mg/ml Inj (20 ML) ONE (11:23)
--- NOTE | 2018-11-02 12:40 | PCM.SURG1 ---
Surgeon's Initial Post Op Note - Surgeon's Notes Surgeon: Dr. Gordon Chief Business Development Officer: Dr. Marie Type of Anesthesia: Block Regional, IV Sedation, Local Pre-Operative Diagnosis: right inguinal hernia Operative Findings: cord lipoma, direct inguinal hernia Post-Operative Diagnosis: right inguinal hernia Operation Performed: right ingunial hernia repair with mesh Specimen/Specimens Removed: cord lipoma Estimated Blood Loss: EBL {In ML}: 20 Blood Products Given: N/A Drains Used: No Drains Post-Op Condition: Good Date of Surgery/Procedure: 11/02/18 Time of Surgery/Procedure: 12:39
--- NOTE | 2018-11-02 12:44 | PCM.ANESB5 ---
Transverse Abdominis Block - Transverse Abdominis Plane Date of Procedure: 11/02/18 Anesthesiologist: Sim Dalton Pre-Procedure Diagnosis: Right inguinal hernia Post-Procedure Diagnosis: Same Procedure Performed: Transverse Abdominis Plane Nerve Block Right - Procedure Transverse Abdominis Plane Nerve Block: The procedure was explained to the patient that it is for surgical blockade. Consent was obtained prior to surgery after a thorough discussion with the patient regarding the benefits and possible complications of transverse abdominis plane block. After prepping and draping the patient in standard sterile fashion, time-out was held with the circulating nurse to re-confirm the appropriate block. With the patient in supine position, the ultrasound probe was placed transverse to the RIGHT abdominal wall at the mid-axillary line above the iliac crest of the appropriate side. The skin, subcutaneous tissue, fat, external oblique muscle, internal oblique muscle, and the transverse abdominis muscle were identified. The general area of the block site was then prepped with Betadine three times and topicalized with 1% lidocaine. At this point, a # 21-gauge Stimuplex 4-inch needle was inserted posterior to and in plane with the ultrasound probe and directed anteriorly. Needle was advanced under direct ultrasound visualization until it reached the plane between the internal oblique and transverse abdominis muscles. After appropriate placement, 2mL of local anesthetic solution was injected. When the transverse abdominis plane was observed expanding in an ellipsoid way, the rest of the solution was slowly injected. A total of __30____ mL of __0.25___ % ___bupivacaine with 1:[id number] epinephrine was used for this block. The needle was then removed and sterile dressing was applied. The patient had stable vital signs throughout and proceeded with surgery.
[2018-11-02] MEDS ORDERED: Lactated Ringer's 1,000 ML IV ONE (13:09)
[2018-11-02] MEDS: Oxycodone/Acetaminophen 5/325 mg Tab PO PRN (15:29)
[2018-11-03 05:58] LABS: HEMOGLOBIN 13.3 g/dL (12.0-18.0); MEAN CELL VOLUME 98.3 fl (80.0-94.0); MEAN CORPUSCULAR HEMOGLOBIN 33.4 pg (27.0-31.0); RBC 3.99 Mil/uL (4.40-5.90); RED CELL DISTRIBUTION WIDTH 14.3 % (11.5-14.5)
[2018-11-03 06:31] LABS: BLOOD UREA NITROGEN 12 mg/dl (9-20); CALCIUM 8.8 mg/dL (8.4-10.2); GFR NON-AFRICAN AMERICAN > 60
--- NOTE | 2018-11-03 08:15 | CP.PCM.PN ---
<Lianna Dietz - Last Filed: 11/03/18 08:33> Subjective - Date & Time of Evaluation Date of Evaluation: 11/03/18 Time of Evaluation: 08:15 - Subjective Subjective: General Surgery Progress Note: Dr. Gordon Patient seen and examined this am, POD#1 R ingunial hernia repair with mesh. Patient resting comfortably and in NAD. Patient endorses mild discomfort to surgical site at this time. Denies nausea/vomiting/fever/shortness of breath. Objective - Vital Signs/Intake and Output Vital Signs (last 24 hours): Temp Pulse Resp BP Pulse Ox 98.9 F 92 H 20 107/74 95 11/03/18 05:06 11/03/18 05:06 11/03/18 05:06 11/03/18 05:06 11/03/18 05:06 - Medications Medications: Current Medications Acetaminophen (Tylenol 325mg Tab) 650 mg PO Q6 PRN PRN Reason: Pain, Mild (1-3) Apixaban (Eliquis) 5 mg PO BID [facility]; Protocol Docusate Sodium (Colace) 200 mg PO [facility] Last Admin: 11/02/18 22:01 Dose: 200 mg Ergocalciferol (Drisdol 50,000 Intl Units Cap) 1 cap PO Q7D [facility] Last Admin: 11/01/18 16:56 Dose: 1 cap Gabapentin (Neurontin) 100 mg PO [facility] Last Admin: 11/02/18 22:01 Dose: 100 mg Tramadol HCl (Ultram) 50 mg PO Q6 PRN PRN Reason: Pain, severe (8-10) Last Admin: 11/03/18 05:57 Dose: 50 mg - Labs Labs: 11/03/18 04:45 11/03/18 04:45 PT 16.2 Seconds (9.8-13.1) H 10/31/18 05:19 INR 1.4 10/31/18 05:19 - Constitutional Appears: Non-toxic, No Acute Distress - Head Exam Head Exam: ATRAUMATIC, NORMOCEPHALIC - Eye Exam Eye Exam: Normal appearance - Respiratory Exam Respiratory Exam: NORMAL BREATHING PATTERN - Cardiovascular Exam Cardiovascular Exam: REGULAR RHYTHM - GI/Abdominal Exam GI & Abdominal Exam: Soft Additional comments: Tenderness to right inguinal region - Extremities Exam Extremities Exam: absent: Calf Tenderness - Neurological Exam Neurological Exam: Alert, Awake, Oriented x3 - Psychiatric Exam Psychiatric exam: Normal Affect, Normal Mood - Skin Skin Exam: Warm Assessment and Plan - Assessment and Plan (Free Text) Assessment: 78 year old male patient POD#1 right ingunial hernia repair with mesh. Plan: - Pain control - Regular diet - Further recs per Dr. Evan Dietz PGY1 <Dilip Gordon - Last Filed: 11/04/18 09:48> Objective - Vital Signs/Intake and Output Vital Signs (last 24 hours): Temp Pulse Resp BP Pulse Ox 97.6 F 102 H 18 105/70 96 11/04/18 08:22 11/04/18 08:22 11/04/18 08:22 11/04/18 08:22 11/04/18 08:22 - Medications Medications: Current Medications Acetaminophen (Tylenol 325mg Tab) 650 mg PO Q6 PRN PRN Reason: Pain, Mild (1-3) Apixaban (Eliquis) 5 mg PO BID [facility]; Protocol Last Admin: 11/03/18 17:08 Dose: 5 mg Docusate Sodium (Colace) 200 mg PO [facility] Last Admin: 11/03/18 21:42 Dose: 200 mg Ergocalciferol (Drisdol 50,000 Intl Units Cap) 1 cap PO Q7D [facility] Last Admin: 11/01/18 16:56 Dose: 1 cap Gabapentin (Neurontin) 100 mg PO [facility] Last Admin: 11/03/18 21:41 Dose: 100 mg Metoprolol Tartrate (Lopressor) 12.5 mg PO Q12 [facility] Last Admin: 11/03/18 21:42 Dose: 12.5 mg Tramadol HCl (Ultram) 50 mg PO Q6 PRN PRN Reason: Pain, severe (8-10) Last Admin: 11/04/18 02:53 Dose: 50 mg - Labs Labs: 11/03/18 04:45 11/03/18 04:45 PT 16.2 Seconds (9.8-13.1) H 10/31/18 05:19 INR 1.4 10/31/18 05:19 Assessment and Plan - Assessment and Plan (Free Text) Plan: pt resting comfortably, tolerating diet. Reports incisional pain. abd: soft, NT, ND, right groin incision c/d/i, appropriate tenderness -cont diet -pain control -stable for dc f/u in office
--- NOTE | 2018-11-03 08:28 | CP.PCM.PN ---
Subjective - Date & Time of Evaluation Date of Evaluation: 11/03/18 Time of Evaluation: 08:15 - Subjective Subjective: Patient was seen and examined at bedside this morning. Patient in telemetry unit. Alert, awake, and oriented x 3. Still having intermittent pain at the surgical incision level. Tolerating PO well since yesterday. Urinating without complains after surgery. Last BMs was this morning. Denies CP/SOB/N/V. Afebrile, BP WNL. BP meds still on hold. Will resume eliquis today. Objective - Vital Signs/Intake and Output Vital Signs (last 24 hours): Temp Pulse Resp BP Pulse Ox 98.4 F 109 H 18 124/78 93 L 11/03/18 08:00 11/03/18 08:00 11/03/18 08:00 11/03/18 08:00 11/03/18 08:00 - Medications Medications: Current Medications Acetaminophen (Tylenol 325mg Tab) 650 mg PO Q6 PRN PRN Reason: Pain, Mild (1-3) Apixaban (Eliquis) 5 mg PO BID [facility]; Protocol Last Admin: 11/03/18 08:18 Dose: 5 mg Docusate Sodium (Colace) 200 mg PO [facility] Last Admin: 11/02/18 22:01 Dose: 200 mg Ergocalciferol (Drisdol 50,000 Intl Units Cap) 1 cap PO Q7D [facility] Last Admin: 11/01/18 16:56 Dose: 1 cap Gabapentin (Neurontin) 100 mg PO [facility] Last Admin: 11/02/18 22:01 Dose: 100 mg Tramadol HCl (Ultram) 50 mg PO Q6 PRN PRN Reason: Pain, severe (8-10) Last Admin: 11/03/18 05:57 Dose: 50 mg - Labs Labs: 11/03/18 04:45 11/03/18 04:45 PT 16.2 Seconds (9.8-13.1) H 10/31/18 05:19 INR 1.4 10/31/18 05:19 - Skin Additional comments: Constitutional Appears: Non-toxic, No Acute Distress - Eye Exam Eye Exam: Normal appearance - ENT Exam ENT Exam: Mucous Membranes Moist - Respiratory Exam Respiratory Exam: Clear to Ausculation Bilateral, NORMAL BREATHING PATTERN. absent: Rales, Rhonchi, Wheezes, Respiratory Distress - Cardiovascular Exam Cardiovascular Exam: REGULAR RHYTHM, +S1, +S2 - GI/Abdominal Exam GI & Abdominal Exam: Soft, Normal Bowel Sounds. absent: Distended, Guarding, Rigid Right groin: surgical incision clean, mild erythema around incision - Extremities Exam Extremities Exam: Normal Inspection. absent: Calf Tenderness, Pedal Edema - Back Exam Back Exam: NORMAL INSPECTION. absent: CVA tenderness (L), CVA tenderness (R) - Neurological Exam Neurological Exam: Alert, Awake, Oriented x3 Assessment and Plan - Assessment and Plan (Free Text) Assessment: 78 y/o M with PMH dilated cardiomyopathy , ASD secundum,HTN, Chronic Afib recently diagnosed with bilateral inguinal hernia presented with intractable right groin pain .CT showed not incarcerated hernia. Surgery was consulted and decided to take patient to OR once cleared by cardiology. While in hospital developed hypotension, BP 72/50,transferred to ICU and started on IVF resuscitation .Furosemide, Lisinopril, Metoprolol on hold for now due to hypotension. Cleared by Cardiology for surgery/ right inguinal hernia repair. Patient was on Eliquis for afib. On hold since 10/30/18 for possible surgery. Switched to Therapeutic Lovenox on 10/30/18. Scheduled for surgery today 11/02 in AM. Lovenox on hold since PM of day prior to surgery. Patient doing well after surgery. Will resume eliquis this morning. F/u surgical recommendations. PT eval and Tx. Plan: Not incarcerated bilateral inguinal hernia with intractable pain s/p repair POD #1 -pain management with tylenol, percocet and tramadol as per pain scale -diet advanced since yesterday -IV fluids DC since yesterday -resume Eliquis today AM -postop Hgb WNL -postop BMP WNL -Preop labs: CBC, BMA, PT/PTT unremarkable -had an Echo done on 08/2018 reported as EF:50-55 % -preop CXR done on 10/30 reported as no acute disease, chronic stable cardiomegaly, no evidence of pulmonary congestion -EKG on 10/30 : showed A fib rate control -f/u surgical recommendations -PT eval and Tx -cleared by Cardiology for surgery Hypotension -improving/WNL -Held home furosemide, Lisinopril, Metoprolol since 10/31 -c/w monitoring BP Chronic A fib -rate controlled -c/w centerless grinder operator in telemetry -Metoprolol on hold due to hypotension -s/p Digoxin 0.5 mg PO once yesterday -resume home Eliquis 5 mg BID today AM HTN - Hold Antihypertensive medications for now due to hypotension Vitamin D deficiency Started on Vitamin D DVT Prophylaxis -resume home Eliquis 5 mg BID today AM Full code
[2018-11-03] MEDS ORDERED: Enoxaparin 40 mg Syringe SC SCH (09:00)
--- NOTE | 2018-11-03 09:32 | CP.PCM.PN ---
Subjective - Date & Time of Evaluation Date of Evaluation: 11/03/18 Time of Evaluation: 09:28 - Subjective Subjective: General Surgery Pt seen and examined this AM. He reports he has right inguinal pain in certain positions. He reports tolerating his diet at this time. Denies flatus and BM this AM. He denies any chest pain or SOB. Labs and vitals noted. PE Gen: Pt laying in bed in NAD Skin: warm and dry, see abd Cardio: s1s2 RRR Lungs: (+) rales in LLL, (-) tachypnea, (-) wheezing Abd: Soft, (-) distention. Right inguinal region with dermabonded surgical incision with surrounding erythema and swelling. (-) ecchymosis, (-) induration A/P Right Inguinal Hernia POD1 s/p open right inguinal hernia repair with mesh. PT ordered Continue diet Order entered to apply ice pack to right inguinal region q shift, ice pack provided to pt now. Order entered for IS, 10 x /hr while awake Pt cleared for discharge from surgical standpoint Objective - Vital Signs/Intake and Output Vital Signs (last 24 hours): Temp Pulse Resp BP Pulse Ox 98.4 F 109 H 18 124/78 93 L 11/03/18 08:00 11/03/18 08:00 11/03/18 08:00 11/03/18 08:00 11/03/18 08:00 - Medications Medications: Current Medications Acetaminophen (Tylenol 325mg Tab) 650 mg PO Q6 PRN PRN Reason: Pain, Mild (1-3) Apixaban (Eliquis) 5 mg PO BID [place]; Protocol Last Admin: 11/03/18 08:18 Dose: 5 mg Docusate Sodium (Colace) 200 mg PO HS [facility] Last Admin: 11/02/18 22:01 Dose: 200 mg Ergocalciferol (Drisdol 50,000 Intl Units Cap) 1 cap PO Q7D [facility] Last Admin: 11/01/18 16:56 Dose: 1 cap Gabapentin (Neurontin) 100 mg PO HS [facility] Last Admin: 11/02/18 22:01 Dose: 100 mg Tramadol HCl (Ultram) 50 mg PO Q6 PRN PRN Reason: Pain, severe (8-10) Last Admin: 11/03/18 05:57 Dose: 50 mg - Labs Labs: 11/03/18 04:45 11/03/18 04:45 PT 16.2 Seconds (9.8-13.1) H 10/31/18 05:19 INR 1.4 10/31/18 05:19
[2018-11-04 05:08] VITALS: RESP 18
--- NOTE | 2018-11-04 06:56 | CP.PCM.DIS ---
<Shana Mason Zoë - Last Filed: 11/04/18 17:41> Provider - Provider Date of Admission: 10/31/18 19:23 Attending physician: Stone Alvarez Primary care physician: Surgery consulted Cardiology consulted Consults: 10/30/18 05:51 Surgery [General Surgery Consult] Stat Comment: Consulting Provider: Hiram Kearns Consulting Physician: Hiram Kearns Reason for Consult: intractable pain, R inguinal hernia 10/30/18 15:32 Cardiology Consult Routine Comment: Consulting Provider: Kostas Laboy Consulting Physician: Kostas Laboy Reason for Consult: clearance for inguinal hernia repair surgery Time Spent in preparation of Discharge (in minutes): 30 Diagnosis - Discharge Diagnosis (1) Hernia, inguinal, right Status: Acute Priority: High Comment: S/p Open surgical repair POD #2. Cleared by surgery for discharge. Follow up with surgical clinic in 1 week. (2) S/P inguinal hernia repair Status: Acute (3) Atrial fibrillation Status: Chronic Priority: High Comment: c/w metoprolol T BID. Dose was decreased on admission from 25 to 12.5 mg BID due to low BP. C/w eliquis (4) Hypertension Status: Chronic (5) Vitamin D deficiency Status: Acute Hospital Course - Lab Results Lab Results: Micro Results 10/31/18 19:23 Naris MRSA Culture (Admit) - Final MRSA NOT DETECTED 10/30/18 07:18 Nose MRSA Culture (Admit) - Final MRSA NOT DETECTED Most Recent Lab Values WBC 6.0 K/uL (4.8-10.8) 11/03/18 04:45 RBC 3.99 Mil/uL (4.40-5.90) L 11/03/18 04:45 Hgb 13.3 g/dL (12.0-18.0) 11/03/18 04:45 Hct 39.2 % (35.0-51.0) 11/03/18 04:45 MCV 98.3 fl (80.0-94.0) H 11/03/18 04:45 MCH 33.4 pg (27.0-31.0) H 11/03/18 04:45 MCHC 34.0 g/dL (33.0-37.0) 11/03/18 04:45 RDW 14.3 % (11.5-14.5) 11/03/18 04:45 Plt Count 206 K/uL (130-400) 11/03/18 04:45 MPV 8.3 fl (7.2-11.7) 10/31/18 05:19 Neut % (Auto) 47.6 % (50.0-75.0) L 10/31/18 05:19 Lymph % (Auto) 29.2 % (20.0-40.0) 10/31/18 05:19 Bulloch % (Auto) 12.1 % (0.0-10.0) H 10/31/18 05:19 Eos % (Auto) 8.0 % (0.0-4.0) H 10/31/18 05:19 Baso % (Auto) 3.1 % (0.0-2.0) H 10/31/18 05:19 Neut # (Auto) 1.8 K/uL (1.8-7.0) 10/31/18 05:19 Lymph # (Auto) 1.1 K/uL (1.0-4.3) 10/31/18 05:19 Bulloch # (Auto) 0.5 K/uL (0.0-0.8) 10/31/18 05:19 Eos # (Auto) 0.3 K/uL (0.0-0.7) 10/31/18 05:19 Baso # (Auto) 0.1 K/uL (0.0-0.2) 10/31/18 05:19 Neutrophils % (Manual) 63 % (42-75) 10/31/18 05:19 Band Neutrophils % 2 % (0-2) 10/31/18 05:19 Lymphocytes % (Manual) 20 % (20-50) 10/31/18 05:19 Reactive Lymphs % 1 % (0-0) H 10/29/18 23:35 Monocytes % (Manual) 11 % (0-10) H 10/31/18 05:19 Eosinophils % (Manual) 2 % (0-7) 10/31/18 05:19 Basophils % (Manual) 2 % (0-2) 10/31/18 05:19 Platelet Estimate Normal (NORMAL) 10/31/18 05:19 Macrocytosis (manual) Slight 10/31/18 05:19 Juanpablo Cells Slight 10/31/18 05:19 PT 16.2 Seconds (9.8-13.1) H 10/31/18 05:19 INR 1.4 10/31/18 05:19 Sodium 132 mmol/l (132-148) 11/03/18 04:45 Potassium 3.9 MMOL/L (3.6-5.0) 11/03/18 04:45 Chloride 98 mmol/L (98-107) 11/03/18 04:45 Carbon Dioxide 28 mmol/L (22-30) 11/03/18 04:45 Anion Gap 10 (10-20) 11/03/18 04:45 BUN 12 mg/dl (9-20) 11/03/18 04:45 Creatinine 0.7 mg/dl (0.8-1.5) L 11/03/18 04:45 Est GFR ( Amer) > 60 11/03/18 04:45 Est GFR (Non-Af Amer) > 60 11/03/18 04:45 POC Glucose (mg/dL) 117 mg/dL (65-110) H 10/30/18 22:13 Random Glucose 94 mg/dL (75-110) 11/03/18 04:45 Lactic Acid 2.0 mmol/L (0.7-2.1) 10/30/18 14:18 Calcium 8.8 mg/dL (8.4-10.2) 11/03/18 04:45 Total Bilirubin 1.8 mg/dl (0.2-1.3) H 10/29/18 23:35 AST 39 U/L (17-59) 10/29/18 23:35 ALT 29 U/L (21-72) 10/29/18 23:35 Alkaline Phosphatase 81 U/L (38-126) 10/29/18 23:35 Troponin I 0.0350 ng/mL (0.00-0.120) 10/31/18 09:40 Total Protein 9.8 G/DL (6.3-8.2) H 10/29/18 23:35 Albumin 4.9 g/dL (3.5-5.0) 10/29/18 23:35 Globulin 4.9 gm/dL (2.2-3.9) H 10/29/18 23:35 Albumin/Globulin Ratio 1.0 (1.0-2.1) 10/29/18 23:35 25-OH Vitamin D Total 5 ng/mL (30-100) L 10/31/18 09:40 25-Hydroxy Vitamin D2 <4 ng/mL 10/31/18 09:40 25-Hydroxy Vitamin D3 5 ng/mL 10/31/18 09:40 Blood Type A POSITIVE 11/02/18 04:45 Antibody Screen Negative 11/02/18 04:45 BBK History Checked Patient has bt 11/02/18 04:45 - Hospital Course Hospital Course: 78 y/o M with PMH dilated cardiomyopathy , ASD secundum,HTN, Chronic Afib recently diagnosed with bilateral inguinal hernia presented with intractable right groin pain .CT showed not incarcerated hernia. Surgery was consulted and decided to take patient to OR once cleared by cardiology. While in hospital developed hypotension, BP 72/50,transferred to ICU and started on IVF resuscitation .Furosemide, Lisinopril, Metoprolol on hold for now due to hypotension. Cleared by Cardiology for surgery/ right inguinal hernia repair. Patient was on Eliquis for afib. Eliquis was held prior to the surgery. Switched to Therapeutic Lovenox on 10/30/18. Had scheduled surgery on 11/02. Eliquis was resumed the day after surgery. Today patient was seen and examined at bedside. Stable to be discharged home with follow up as outpatient with PMD and surgery. Discharge medication: Metoprolol T was decreased from 25 mg to 12.5 mg BID because low normal BP Lisinopril was held on admission and at the time of DC patient was advised to hold Lisinopril and Furosemide until re-evaluation by PMD as outpatient on 11/10. C/w Eliquis DC on Tramadol and Colace DC on Vitamin D 50,000 1 tab weekly. Took one dose on admission. Found to have very low Vitamin D on admission. F/U with PMD at [facility] on 11/10, and with surgery in 1-2 weeks. - Date & Time of H&P Date of H&P: 10/30/18 Time of H&P: 07:05 Discharge Exam - Head Exam Head Exam: ATRAUMATIC, NORMOCEPHALIC - Skin Additional comments: Constitutional Appears: Non-toxic, No Acute Distress - Eye Exam Eye Exam: Normal appearance - ENT Exam ENT Exam: Mucous Membranes Moist - Respiratory Exam Respiratory Exam: Clear to Ausculation Bilateral, NORMAL BREATHING PATTERN. absent: Rales, Rhonchi, Wheezes, Respiratory Distress - Cardiovascular Exam Cardiovascular Exam: REGULAR RHYTHM, +S1, +S2 - GI/Abdominal Exam GI & Abdominal Exam: Soft, Normal Bowel Sounds. absent: Distended, Guarding, Rigid Right groin: surgical incision clean, mild erythema around incision - Extremities Exam Extremities Exam: Normal Inspection. absent: Calf Tenderness, Pedal Edema - Back Exam Back Exam: NORMAL INSPECTION. absent: CVA tenderness (L), CVA tenderness (R) - Neurological Exam Neurological Exam: Alert, Awake, Oriented x3 Discharge Plan - Discharge Medications Prescriptions: Apixaban [Eliquis] 5 mg PO BID #60 tab Docusate [Colace] 200 mg PO HS #30 cap Ergocalciferol [Drisdol 50,000 Intl Units Cap] 50,000 iu PO QD7 #7 cap Gabapentin [Neurontin] 100 mg PO HS #30 capsule Metoprolol Tartrate [Lopressor] 12.5 mg PO BID #60 tab traMADol [Ultram] 50 mg PO Q6 PRN #20 tab PRN Reason: Pain, Severe (8-10) - Follow Up Plan Condition: STABLE Disposition: HOME/ ROUTINE Patient education suggested?: Yes Instructions: Hernia Repair (DC) Additional Instructions: Follow up with PMD as scheduled on 11/10/18 at 3:[address] Comfort cotto el doctor gucci soto 11/14/18 11:30am do not pick rub or remove glue from incision site. no heavy lifitng. Referrals: [facility] [Provider Group] Dilip Gordon MD [Medical Doctor] - 2 Weeks ([phone] Follow up and call for appointment w/ Dr. Gordon) <Milka Olivares - Last Filed: 11/04/18 18:01> Provider - Provider Date of Admission: 10/31/18 19:23 Attending physician: Stone Alvarez Consults: 10/30/18 05:51 Surgery [General Surgery Consult] Stat Comment: Consulting Provider: Hiram Kearns Consulting Physician: Hiram Kearns Reason for Consult: intractable pain, R inguinal hernia 10/30/18 15:32 Cardiology Consult Routine Comment: Consulting Provider: Kostas Laboy Consulting Physician: Kostas Laboy Reason for Consult: clearance for inguinal hernia repair surgery Hospital Course - Lab Results Lab Results: Micro Results 10/31/18 19:23 Naris MRSA Culture (Admit) - Final MRSA NOT DETECTED 10/30/18 07:18 Nose MRSA Culture (Admit) - Final MRSA NOT DETECTED Most Recent Lab Values WBC 6.0 K/uL (4.8-10.8) 11/03/18 04:45 RBC 3.99 Mil/uL (4.40-5.90) L 11/03/18 04:45 Hgb 13.3 g/dL (12.0-18.0) 11/03/18 04:45 Hct 39.2 % (35.0-51.0) 11/03/18 04:45 MCV 98.3 fl (80.0-94.0) H 11/03/18 04:45 MCH 33.4 pg (27.0-31.0) H 11/03/18 04:45 MCHC 34.0 g/dL (33.0-37.0) 11/03/18 04:45 RDW 14.3 % (11.5-14.5) 11/03/18 04:45 Plt Count 206 K/uL (130-400) 11/03/18 04:45 MPV 8.3 fl (7.2-11.7) 10/31/18 05:19 Neut % (Auto) 47.6 % (50.0-75.0) L 10/31/18 05:19 Lymph % (Auto) 29.2 % (20.0-40.0) 10/31/18 05:19 Bulloch % (Auto) 12.1 % (0.0-10.0) H 10/31/18 05:19 Eos % (Auto) 8.0 % (0.0-4.0) H 10/31/18 05:19 Baso % (Auto) 3.1 % (0.0-2.0) H 10/31/18 05:19 Neut # (Auto) 1.8 K/uL (1.8-7.0) 10/31/18 05:19 Lymph # (Auto) 1.1 K/uL (1.0-4.3) 10/31/18 05:19 Bulloch # (Auto) 0.5 K/uL (0.0-0.8) 10/31/18 05:19 Eos # (Auto) 0.3 K/uL (0.0-0.7) 10/31/18 05:19 Baso # (Auto) 0.1 K/uL (0.0-0.2) 10/31/18 05:19 Neutrophils % (Manual) 63 % (42-75) 10/31/18 05:19 Band Neutrophils % 2 % (0-2) 10/31/18 05:19 Lymphocytes % (Manual) 20 % (20-50) 10/31/18 05:19 Reactive Lymphs % 1 % (0-0) H 10/29/18 23:35 Monocytes % (Manual) 11 % (0-10) H 10/31/18 05:19 Eosinophils % (Manual) 2 % (0-7) 10/31/18 05:19 Basophils % (Manual) 2 % (0-2) 10/31/18 05:19 Platelet Estimate Normal (NORMAL) 10/31/18 05:19 Macrocytosis (manual) Slight 10/31/18 05:19 Juanpablo Cells Slight 10/31/18 05:19 PT 16.2 Seconds (9.8-13.1) H 10/31/18 05:19 INR 1.4 10/31/18 05:19 Sodium 132 mmol/l (132-148) 11/03/18 04:45 Potassium 3.9 MMOL/L (3.6-5.0) 11/03/18 04:45 Chloride 98 mmol/L (98-107) 11/03/18 04:45 Carbon Dioxide 28 mmol/L (22-30) 11/03/18 04:45 Anion Gap 10 (10-20) 11/03/18 04:45 BUN 12 mg/dl (9-20) 11/03/18 04:45 Creatinine 0.7 mg/dl (0.8-1.5) L 11/03/18 04:45 Est GFR ( Amer) > 60 11/03/18 04:45 Est GFR (Non-Af Amer) > 60 11/03/18 04:45 POC Glucose (mg/dL) 117 mg/dL (65-110) H 10/30/18 22:13 Random Glucose 94 mg/dL (75-110) 11/03/18 04:45 Lactic Acid 2.0 mmol/L (0.7-2.1) 10/30/18 14:18 Calcium 8.8 mg/dL (8.4-10.2) 11/03/18 04:45 Total Bilirubin 1.8 mg/dl (0.2-1.3) H 10/29/18 23:35 AST 39 U/L (17-59) 10/29/18 23:35 ALT 29 U/L (21-72) 10/29/18 23:35 Alkaline Phosphatase 81 U/L (38-126) 10/29/18 23:35 Troponin I 0.0350 ng/mL (0.00-0.120) 10/31/18 09:40 Total Protein 9.8 G/DL (6.3-8.2) H 10/29/18 23:35 Albumin 4.9 g/dL (3.5-5.0) 10/29/18 23:35 Globulin 4.9 gm/dL (2.2-3.9) H 10/29/18 23:35 Albumin/Globulin Ratio 1.0 (1.0-2.1) 10/29/18 23:35 25-OH Vitamin D Total 5 ng/mL (30-100) L 10/31/18 09:40 25-Hydroxy Vitamin D2 <4 ng/mL 10/31/18 09:40 25-Hydroxy Vitamin D3 5 ng/mL 10/31/18 09:40 Blood Type A POSITIVE 11/02/18 04:45 Antibody Screen Negative 11/02/18 04:45 BBK History Checked Patient has bt 11/02/18 04:45 Attending/Attestation - Attestation I have personally seen and examined this patient.: Yes I have fully participated in the care of the patient.: Yes I have reviewed all pertinent clinical information, including history, physical exam and plan: Yes Notes (Text): 1.s/p Open surgical repair of right inguinal hernia cleared by surgery for d/c promote ambulation Pain mgt - will d/c on Ultram 2. Hypertension With episodes of severe hypotension this admission w/c now resolved BP meds ( Lisinopril , furosemide and Metoprolol) at home , will d/c pt only on low dose Metoprolol 3. Chronic Afib rate controlled . cont Eliquis and Metoprolol 4. ASD secundum with bilateral atrial enlargement cardio consulted- no intervention 5. Vitamin D deficiency cont Vitamin D
[2018-11-04 12:12] VITALS: BP 114/79; PULSE 92; TEMP 98; O2SAT 97
--- NOTE | 2018-11-04 21:46 | OP ---
PROCEDURE DATE: 11/02/2018 PREOPERATIVE DIAGNOSIS: Reducible right inguinal hernia. POSTOPERATIVE DIAGNOSIS: Reducible direct right inguinal hernia. PROCEDURE: Open right inguinal hernia repair with mesh. SURGEON: Dilip Gordon MD SERVER PROGRAMMER: Resident, Luther Marie DO TYPE OF ANESTHESIA: Local, nerve block. FINDINGS: The patient had direct inguinal hernia with cord lipoma, no evidence of indirect component. COMPLICATIONS: None. SPECIMENS: Cord lipoma. ESTIMATED BLOOD LOSS: 20 ml. CONDITION: Stable. INDICATION FOR PROCEDURE: This is a 78-year-old male the second time who presented to the emergency room with complaints of right inguinal pain. The patient has multiple comorbidities including dilated cardiomyopathy and atrial fibrillation. On the first visit to the ER, the patient was referred for an elective repair where the patient subsequently returned to the ER with again complaints of right inguinal pain. The patient was on Eliquis for his atrial fibrillation, so the patient was initially admitted to the hospital for observation. Given his medical history the patient was evaluated by Cardiology for surgical clearance. After a period of four or five days of the Eliquis and clearance from Cardiology, the patient was booked for the operating room for a right inguinal hernia repair. The patient was explained the risk and benefits of procedure, not limited to bleeding, infection, possible bowel injury, possible injury to structures, possible recurrence of hernia. The patient agreed and surgical consent was obtained. DESCRIPTION OF PROCEDURE: On the date of procedure, the patient was brought to the operating room. He was placed in supine position. Due to his multiple comorbidities and cardiomyopathy and after discussion with the anesthesia team, the decision was made to proceed with the surgery under local anesthesia and a nerve block. After anesthesia successfully placed and nerve block, the patient was prepped in the usual sterile fashion. After an adequate time-out, again the right groin area was infiltrated with Marcaine, and we waited a period of 3 to 4 minutes and assessed adequate anesthesia. We then proceeded to commence with out procedure. Using a #10 blade about a 5-cm incision was made to the right lower quadrant between the ASIS and the pubis. Using the Bovie cautery the subcutaneous tissue was transected down obtaining adequate hemostasis. Vein was encountered upon dissection which was isolated and then transected and then a Vicryl suture was used to tie off the vessel. We continued our dissection down through the subcutaneous tissue until we were able to find external oblique muscle. Fat above the muscle was bluntly dissected off to clear off the external oblique. At this point, we were able to identify the superficial external inguinal ring. Using a #15 blade an incision was made along the external oblique, along its fibers. The external oblique was then grabbed with two hemostats. Then, using a Metzenbaum scissors the external oblique muscle was transected along its length proximally and distally. Careful attention was made not to injure the ilioinguinal nerves. Once the external oblique was incised, we were able to identify the spermatic cord. The spermatic cord was then bluntly dissected off and isolated from the inguinal floor. A Ballinger drain was placed under the spermatic cord. At this point, cremasteric fibers were transected in order to identify the hernia sac. Once the hernia sac was identified, we were able to isolate it off the spermatic cord paying careful attention not to injure the vas deferens. Once the hernia sac was isolated, we were able to identify that this was a direct inguinal hernia. Along with the hernia sac, we were also able to identify a cord lipoma which was transected and sent to pathology. Once we were able to isolate the hernia sac to its neck the hernia sac was reduced into the abdominal cavity. We then proceeded to inspect the internal inguinal ring, and we were able to confirm that there was no indirect component or no indirect hernia. At this point, having successfully reduced the hernia sac we now focused our attention into reconstructing the floor. A large ProLoop mesh plug was placed into the direct defect. Then, using 0 Prolene sutures the plug was circumstantially secured. We then used a similar ProLoop mesh patch and secured it to the inguinal floor. We initially started securing the patch to the pubic tubercle using a 0 Prolene stitch. The lateral aspect of the patch was then secured in a running fashion along the shelving edge of the inguinal ligament. Then in similar fashion the medial aspect of the patch was secured medially in an interrupted fashion using a 0 Prelone stitch. Once the patch was secured the internal inguinal ring was recreated. The two loose ends of the patch were approximated using a 0 Prolene stitch. Having been satisfied with procedure we now proceeded to reapproximate the fascia of the external oblique using a 0 Vicryl stitch. Careful attention was again paid to not cause any injury to the ilioinguinal nerve. We then proceeded to irrigate the wound and irrigation was suctioned off. The Titi's fascia was then reapproximated using a 3-0 Vicryl stitch. The skin incision was then closed using a 4-0 running Monocryl stitch. The wound was then infiltrated with local anesthetic. Dermabond was applied to the incision. At the end of the procedure, the scrotal area was reexamined and both testicles were in anatomical position. The patient tolerated the procedure well and was brought to the recovery room in stable condition. At the end of the procedure, there was an adequate count to all instruments, needles and sponges. Dilip Gordon MD
--- NOTE | 2018-11-09 13:45 | PQF ---
PROVIDER RESPONSE TEXT: Chronic CHF, prob combined dysfunction REVIEWER QUERY TEXT: CHF Acuity and Type Physician?s Documentation Request This Form is Not a Permanent Document in the Medical Record Pt Name: CHALINO BLUE MR #: [id number] Payor: JUVE - UNCOMPENSATED Unit/Bed: [id number] Adm Date: 10/31/2018 7:23:00 PM Reviewer: Mary Garcia Ext. Query Date: 11/07/2018 6:13:00 PM CHF Acuity and Type [id number] By submitting this query, we are merely seeking further clarification of documentation to accurately reflect all conditions that you are monitoring, evaluating, treating or that extend the hospitalizati on or utilize additional resources of care. Please utilize your independent clinical judgment when ad dressing the question(s) below. Dear Doctor Milka Olivares, The patient?s Clinical Indicators include: Please clarify if known the type of CHF. Congestive Heart Failure is documented in the Medical Record. Please document the type and acuity (in cludes probable or suspected) Such as: Type: -- Systolic -- Diastolic -- Combined -- Other, please specify Acuity: -- Acute -- Chronic -- Acute on chronic -- Other, please specify Also please document the underlying cause of the CHF (includes probable or suspected) PLEASE DOCUMENT ANY ADDITIONAL DIAGNOSES AND/OR SPECIFICITY IN THE PROGRESS NOTES AND/OR DISCHARGE CHAMBERS MMARY. Clinically unable to determine/unknown Disagree with the above request Need to discuss Query created by: Mary Garcia on 11/07/2018 6:13 PM Electronically signed by: Milka Olivares MD 11/09/2018 1:41 PM
== END 2018-11-04 14:06 | disposition home or self-care (01) | DRG 228 ==
LOC: H.ER 22:26 → H.ERHOLD 10-30 05:46 → H.MEDSURG1 10-30 08:43 → H.ICU/CCU 10-30 22:56 → OBSVTOIN 10-31 19:23 → H.TEL 10-31 22:41
PROVIDERS: ADMIT Internal Medicine; ATTEND Internal Medicine
PROC: 3E0T33Z Introduction of Anti-inflammatory into Peripheral Nerves and Plexi, Percutaneous Approach (ICD-10-PCS; 2018-11-02)
PROC: 0YU50JZ Supplement Right Inguinal Region with Synthetic Substitute, Open Approach (ICD-10-PCS; principal; 2018-11-02 10:30)
PROC: 3E0T3BZ Introduction of Anesthetic Agent into Peripheral Nerves and Plexi, Percutaneous Approach (ICD-10-PCS; 2018-11-02 10:30)
DX: K40.20 Bilateral inguinal hernia, without obstruction or gangrene, not specified as recurrent (principal); I11.0 Hypertensive heart disease with heart failure; I48.2 Chronic atrial fibrillation; E86.0 Dehydration; I42.0 Dilated cardiomyopathy; I50.42 Chronic combined systolic (congestive) and diastolic (congestive) heart failure; I27.20 Pulmonary hypertension, unspecified; Q21.1 Atrial septal defect; E55.9 Vitamin D deficiency, unspecified; I95.2 Hypotension due to drugs; D17.6 Benign lipomatous neoplasm of spermatic cord; I35.1 Nonrheumatic aortic (valve) insufficiency; K59.00 Constipation, unspecified; M85.80 Other specified disorders of bone density and structure, unspecified site; J45.909 Unspecified asthma, uncomplicated; Z79.01 Long term (current) use of anticoagulants

== ENCOUNTER 2018-12-23 17:41 | Observation (INO) | payer SELFPAY ==
[2018-12-23 17:41] VITALS: PULSE 105; BMI 24.5
[2018-12-23] MEDS ORDERED: Metoprolol 1 mg/ml Inj IVP STA ×2 (18:01→20:19)
[2018-12-23] MEDS ORDERED: Metoprolol 1 mg/ml Inj ONE ×2 (18:36→20:39)
[2018-12-23 19:26] LABS: BASO # 0.1 K/uL (0.0-0.2); BASO % 1.8 % (0.0-2.0); EOS # 0.1 K/uL (0.0-0.7); EOS % 1.8 % (0.0-4.0); HEMOGLOBIN 13.1 g/dL (12.0-18.0); LYMPH # 0.6 K/uL (1.0-4.3); MEAN CELL VOLUME 99.1 fl (80.0-94.0); MEAN CORPUSCULAR HEMOGLOBIN 32.9 pg (27.0-31.0); MEAN CORPUSCULAR HGB CONC 33.2 g/dL (33.0-37.0); MONO # 0.3 K/uL (0.0-0.8); NEUT # 2.3 K/uL (1.8-7.0); NEUT % 70.4 % (50.0-75.0); RBC 3.97 Mil/uL (4.40-5.90); RED CELL DISTRIBUTION WIDTH 15.2 % (11.5-14.5); WHITE BLOOD COUNT 3.3 K/uL (4.8-10.8)
[2018-12-23 19:36] LABS: BLOOD UREA NITROGEN 7 mg/dl (9-20); CALCIUM 9.1 mg/dL (8.4-10.2); GFR NON-AFRICAN AMERICAN > 60
[2018-12-23 19:48] LABS: B-TYPE NATRIURETIC PEPTIDE 961 pg/ml (0-900)
[2018-12-23] MEDS ORDERED: Iohexol 240 (50 ml) PO ONE (20:21)
[2018-12-23] MEDS ORDERED: Iohexol 240 (50 ml) ONE (20:39)
--- NOTE | 2018-12-23 20:50 | ED PDOC ---
Lower Extremity Pain/Injury Time Seen by Provider: 12/23/18 17:56 Chief Complaint (Nursing): Lower Extremity Problem/Injury Chief Complaint (Provider): Lower Extremity Problem/Injury History Per: Patient History/Exam Limitations: no limitations Onset/Duration Of Symptoms: Gradual Current Symptoms Are (Timing): Still Present Additional Complaint(s): 78 year old male presents to the emergency department with worsening right, upper leg pain associated with bilateral swelling and racing heart rate. Patient states he had hernia repair at [facility] earlier this month then ran out of all medications including blood pressure pills 10 days ago. He denies any vomiting, fever, chills, diarrhea, testicular or abdominal pain. Past Medical History Reviewed: Historical Data, Nursing Documentation, Vital Signs Vital Signs: Last Vital Signs Temp 98.7 F 12/23/18 17:45 Pulse 139 H 12/23/18 18:54 Resp 20 12/23/18 17:45 BP 124/81 12/23/18 18:54 Pulse Ox 100 12/23/18 17:45 Primary Care Provider: Girish Jain - Medical History PMH: Asthma, Atrial Fibrillation, CHF, HTN, Peripheral Edema Denies: HIV, Chronic Kidney Disease - Family History Family History: States: Unknown Family Hx - Immunization History Hx Tetanus Toxoid Vaccination: No Hx Influenza Vaccination: No Hx Pneumococcal Vaccination: No - Home Medications Home Medications: Ambulatory Orders Medication Instructions Recorded Apixaban [Eliquis] 5 mg PO BID #60 tab 11/04/18 Docusate [Colace] 200 mg PO HS #30 cap 11/04/18 Ergocalciferol [Drisdol 50,000 50,000 iu PO QD7 #7 cap 11/04/18 Intl Units Cap] Gabapentin [Neurontin] 100 mg PO HS #30 capsule 11/04/18 Metoprolol Tartrate [Lopressor] 12.5 mg PO BID #60 tab 11/04/18 traMADol [Ultram] 50 mg PO Q6 PRN #20 tab 11/04/18 - Allergies Allergies/Adverse Reactions: Allergies Allergy/AdvReac Type Severity Reaction Status Date / Time No Known Allergies Allergy Verified 10/29/18 22:28 Review of Systems ROS Statement: Except As Marked, All Systems Reviewed And Found Negative Cardiovascular: Positive for: Palpitations Gastrointestinal: Negative for: Abdominal Pain Genitourinary Male: Negative for: Other (testicular pain) Musculoskeletal: Positive for: Leg Pain (upper, right with bilateral swelling) Physical Exam - Reviewed Nursing Documentation Reviewed: Yes Vital Signs Reviewed: Yes - Physical Exam Appears: Positive for: No Acute Distress Head Exam: Positive for: ATRAUMATIC, NORMAL INSPECTION, NORMOCEPHALIC Skin: Positive for: Normal Color Eye Exam: Positive for: Normal appearance Cardiovascular/Chest: Positive for: Regular Rate, Rhythm Respiratory: Positive for: Normal Breath Sounds. Negative for: Respiratory Distress Gastrointestinal/Abdominal: Positive for: Normal Exam, Soft. Negative for: Tenderness Male Genital Exam: Positive for: normal genitalia (settlement technician Queenie present as cigar head pegger. exam limited secondary to patient's refusal to remove pants and underwear), inguinal tenderness (right-sided on palpitation without visible ecchymosis) Neurological/Psych: Positive for: Awake, Alert, Normal Tone, Symmetric/Intact Strength, Oriented. Negative for: Motor/Sensory Deficits - Laboratory Results Result Diagrams: 12/23/18 19:23 12/23/18 19:23 Lab Results: Troponin I 0.0270 ng/mL (0.00-0.120) 12/23/18 19:23 NT-Pro-B Natriuret Pep 961 pg/ml (0-900) H 12/23/18 19:23 - ECG O2 Sat by Pulse Oximetry: 100 (RA) Pulse Ox Interpretation: Normal Medical Decision Making Medical Decision Making: Time: 1758 Initial Plan: work up for increasing pain to right upper leg/groin follow surgery. Surgery consult initiated. EKG with (+) AFib, possible admission. * Labs * CXR Time: 2039 --Patient will be admitted to [facility] 240 PO Lopressor IVP Lasix IVP Surgery consult CT ABD/pelvis ------ Scribe Attestation: Documented by Ebonie Murray, acting as a scribe for Shana Maloney MD. Provider Scribe Attestation: All medical record entries made by the Scribe were at my direction and personally dictated by me. I have reviewed the chart and agree that the record accurately reflects my personal performance of the history, physical exam, medical decision making, and the department course for this patient. I have also personally directed, reviewed, and agree with the discharge instructions and disposition. Disposition - Disposition Forms: [employer] ([place])
--- NOTE | 2018-12-23 22:03 | CP.PCM.HP ---
<Teresita Vance - Last Filed: 12/23/18 22:11> History of Present Illness - History of Present Illness History of Present Illness: CC: Pain HPI: 78 YO Male with PMHx of Atrial Fibrillation, CHF due to valvular disease presents to [facility] ED for R swelling and inguniel pain. Patient states that he had right inguinal hernia repair surgery on 11/02/18, and his pain has improved since surgery but notes that every time he walks, or bends to tie his shoelace or bends his knees he has sharp pain in the R inguinal area. Additionally, he has also noticed that for the past 1-2 weeks he has had increase swelling of his lower ext b/l, more on R then left. Denies chest pain, palpations, dyspnea, abdominal pain, n/v, fevers and chills. Normal BMS and voids. Of note, patient states that he has not been taking his meds at home as prescribed for the past couple of days, he ran out of his meds. [facility] [id number] PMD: [facility]: Dr. Jain Cardiology: Dr. Anabella Peng PMHx: Atrial Fibrillation, CHF due to valvular disease, ASD secundum, MR, TR. PSHx: denied SHx: denies smoking, alcohol or illicit drugs. Lives alone. Meds: Metoprolol 25mg PO Q12H, Eliquis 5mg PO BID, Lisinopril 10mg PO daily, lasix 20mg po daily, Gabapentin 100 PO HS. NKDA Meds verified by [facility] Present on Admission - Present on Admission Any Indicators Present on Admission: No Review of Systems - Constitutional Constitutional: absent: Chills, Fever - Cardiovascular Cardiovascular: absent: Chest Pain, Dyspnea - Respiratory Respiratory: absent: Cough, Dyspnea - Gastrointestinal Gastrointestinal: Other (inguinal pain, R). absent: Abdominal Pain, Nausea, Vomiting - Genitourinary Genitourinary: absent: Dysuria Past Patient History - Tetanus Immunizations Tetanus Immunization: Unknown - Past Medical History & Family History Past Medical History?: No - Past Social History Smoking Status: Never Smoked Alcohol: None Drugs: Denies Home Situation {Lives}: Alone - CARDIAC Hx Atrial Fibrillation: Yes Hx Congestive Heart Failure: Yes Hx Hypertension: Yes Hx Peripheral Edema: Yes - PULMONARY Hx Asthma: Yes - NEUROLOGICAL Hx Neurological Disorder: No - HEENT Hx HEENT Problems: No - RENAL Hx Chronic Kidney Disease: No - ENDOCRINE/METABOLIC Hx Endocrine Disorders: No - HEMATOLOGICAL/ONCOLOGICAL Hx Human Immunodeficiency Virus (HIV): No - INTEGUMENTARY Hx Dermatological Problems: No - MUSCULOSKELETAL/RHEUMATOLOGICAL Hx Musculoskeletal Disorders: No - GASTROINTESTINAL Hx Gastrointestinal Disorders: No - GENITOURINARY/GYNECOLOGICAL Hx Genitourinary Disorders: No - PSYCHIATRIC Hx Psychophysiologic Disorder: No - SURGICAL HISTORY Hx Surgeries: No - ANESTHESIA Hx Anesthesia: No Meds Allergies/Adverse Reactions: Allergies Allergy/AdvReac Type Severity Reaction Status Date / Time No Known Allergies Allergy Verified 10/29/18 22:28 Physical Exam - Constitutional Appears: No Acute Distress, Other (hard of hearing ) - Head Exam Head Exam: NORMAL INSPECTION - Eye Exam Eye Exam: EOMI, Normal appearance - ENT Exam ENT Exam: Mucous Membranes Moist - Respiratory Exam Respiratory Exam: Clear to Auscultation Bilateral, NORMAL BREATHING PATTERN. absent: Wheezes - Cardiovascular Exam Cardiovascular Exam: Irregular Rhythm, +S1, +S2 - GI/Abdominal Exam GI & Abdominal Exam: Normal Bowel Sounds, Soft. absent: Distended, Tenderness Additional comments: Mild tenderness to palpation of the R inguinal area, no warmthness, erythema, edema. Skin is intact and healing well - Extremities Exam Extremities exam: Positive for: normal inspection Additional comments: stasis dermatitis b/l 2+ pitting edema in the RLE, 1+ in the LLE up to the mid-[place] - Back Exam Back exam: NORMAL INSPECTION - Neurological Exam Neurological exam: Alert, Oriented x3 - Psychiatric Exam Psychiatric exam: Normal Mood - Skin Skin Exam: Normal Color Results - Vital Signs Recent Vital Signs: Last Vital Signs Temp 98.7 F 12/23/18 17:45 Pulse 126 H 12/23/18 20:46 Resp 20 12/23/18 17:45 BP 129/86 12/23/18 20:49 Pulse Ox 100 12/23/18 20:59 - Labs Result Diagrams: 12/23/18 19:23 12/23/18 19:23 Labs: Laboratory Results - last 24 hr 12/23/18 12/23/18 19:23 19:23 WBC 3.3 L RBC 3.97 L Hgb 13.1 Hct 39.4 MCV 99.1 H MCH 32.9 H MCHC 33.2 RDW 15.2 H Plt Count 208 MPV 8.0 Neut % (Auto) 70.4 Lymph % (Auto) 18.0 L [place] % (Auto) 8.0 Eos % (Auto) 1.8 Baso % (Auto) 1.8 Neut # (Auto) 2.3 Lymph # (Auto) 0.6 L [place] # (Auto) 0.3 Eos # (Auto) 0.1 Baso # (Auto) 0.1 Sodium 137 Potassium 3.6 Chloride 100 Carbon Dioxide 26 Anion Gap 15 BUN 7 L Creatinine 0.6 L Est GFR ( Amer) > 60 Est GFR (Non-Af Amer) > 60 Random Glucose 94 Calcium 9.1 Troponin I 0.0270 NT-Pro-B Natriuret Pep 961 H - EKG Data EKG Interpreted by: Myself Rate: Tachycardia (A fib with a rate of 129) Assessment & Plan - Assessment and Plan (Free Text) Assessment: Assessment/Plan: 78 YO Male with PMHx of Atrial Fibrillation, CHF due to valvular disease is admitted for a fib with RVR, CHF and post-op pain. A fib with RVR -acute on chronic -EKG sig for a fib with RVR, rate of 129 -uncontrolled rate 2/2 to med non-compliance -will restart home dose of metropolol and restart anticoag -tele monitor CHF -acute on chronic -elevated pro-bnp -CXR sig for increase congestion (when compared to previous CXR) -Echo (08/2018) sig for EF 50-55%; large septum secundum, severe TR and MR, large R and L atrium. -consider Cardiology consulted if needed; Dr. Peng -c/w IV lasix Post-op pain -s/p R inguinal hernia repair on 11/02/2018 -surgery consulted; follow up recs -pain management DVT prophylaxis -c/w Eliquis <Stone Alvarez - Last Filed: 12/24/18 01:18> Results - Vital Signs Recent Vital Signs: Last Vital Signs Temp 98 F 12/24/18 00:39 Pulse 124 H 12/24/18 00:39 Resp 18 12/24/18 00:39 BP 134/76 12/24/18 00:39 Pulse Ox 100 12/24/18 00:39 - Labs Result Diagrams: 12/23/18 19:23 05/31/19 19:23 Labs: Laboratory Results - last 24 hr 12/23/18 12/23/18 19:23 19:23 WBC 3.3 L RBC 3.97 L Hgb 13.1 Hct 39.4 MCV 99.1 H MCH 32.9 H MCHC 33.2 RDW 15.2 H Plt Count 208 MPV 8.0 Neut % (Auto) 70.4 Lymph % (Auto) 18.0 L [place] % (Auto) 8.0 Eos % (Auto) 1.8 Baso % (Auto) 1.8 Neut # (Auto) 2.3 Lymph # (Auto) 0.6 L [place] # (Auto) 0.3 Eos # (Auto) 0.1 Baso # (Auto) 0.1 Sodium 137 Potassium 3.6 Chloride 100 Carbon Dioxide 26 Anion Gap 15 BUN 7 L Creatinine 0.6 L Est GFR ( Amer) > 60 Est GFR (Non-Af Amer) > 60 Random Glucose 94 Calcium 9.1 Troponin I 0.0270 NT-Pro-B Natriuret Pep 961 H Attending/Attestation - Attestation I have personally seen and examined this patient.: Yes I have fully participated in the care of the patient.: Yes I have reviewed all pertinent clinical information: Yes Notes (Text): 12/24/18 01:01 I saw, examined and discussed this patient with Dr Vance. I agree with the assessment and plan outlined. This is a 78 years old male with hx of Chronic A Fib, CHF and right Inguinal hernia repair on 11/02/18. He comes with pain to the upper right thigh radiating from the surgical wound.In the ED he was found to be in Rapid A Fib with the Chest X Ray showing congestion. Pain management and a surgical consult for the post Hernia repair pain Metoprolol, a total of 10mg was given IVP decreasing the Heart Rate. Continue with Metoprolol for rate control and Apixaban as anticoagulant. Treat Chronic CHF most likely diastolic dysfunction, with Metoprolol and Lisinopril with livia Alvarez MD
--- NOTE | 2018-12-23 22:29 | CP.PCM.CON ---
<Bob Solano - Last Filed: 12/24/18 12:34> History of Present Illness - History of Present Illness History of Present Illness: General Surgery Consult for Dr. South Reason for consult: right groin pain 78 M with PMH of Atrial Fibrillation, CHF due to valvular disease presents to [facility] for R groin pain. Patient was seen and evaluated in the ED. Patient had right inguinal hernia repair with mesh on 11/02/18. He states that his pain has improved since surgery but came back worse over last week or so. He reports notes that every time he walks or bends he has sharp pain in the R inguinal area. Patient has not been complaint with his medications. He has not gotten them refilled and has not taken them in almost 2 weeks. Admits to LE swelling and numbness/tingling. Patient denies fever/chills, cp, SOB, abd pain, n/v/d, urinary symptoms. PMD: [facility] Cardiology: Dr. Anabella Peng PMH: Atrial Fibrillation, CHF due to valvular disease, ASD secundum, MR, TR. PSH: right inguinal hernia repair ALL: NKDA Social: denies tobacco, EtOH or illicit drugs. Lives alone. Review of Systems - Review of Systems All systems: reviewed and no additional remarkable complaints except (as per HPI) Past Patient History - Tetanus Immunizations Tetanus Immunization: Unknown - Past Medical History & Family History Past Medical History?: No - Past Social History Smoking Status: Never Smoked Alcohol: None Drugs: Denies Home Situation {Lives}: Alone - CARDIAC Hx Atrial Fibrillation: Yes Hx Congestive Heart Failure: Yes Hx Hypertension: Yes Hx Peripheral Edema: Yes - PULMONARY Hx Asthma: Yes - NEUROLOGICAL Hx Neurological Disorder: No - HEENT Hx HEENT Problems: No - RENAL Hx Chronic Kidney Disease: No - ENDOCRINE/METABOLIC Hx Endocrine Disorders: No - HEMATOLOGICAL/ONCOLOGICAL Hx Human Immunodeficiency Virus (HIV): No - INTEGUMENTARY Hx Dermatological Problems: No - MUSCULOSKELETAL/RHEUMATOLOGICAL Hx Musculoskeletal Disorders: No - GASTROINTESTINAL Hx Gastrointestinal Disorders: No - GENITOURINARY/GYNECOLOGICAL Hx Genitourinary Disorders: No - PSYCHIATRIC Hx Psychophysiologic Disorder: No - SURGICAL HISTORY Hx Surgeries: No - ANESTHESIA Hx Anesthesia: No Meds Allergies/Adverse Reactions: Allergies Allergy/AdvReac Type Severity Reaction Status Date / Time No Known Allergies Allergy Verified 10/29/18 22:28 - Medications Medications: Current Medications Acetaminophen (Tylenol 325mg Tab) 650 mg PO Q6 PRN PRN Reason: Pain, Mild (1-3) Acetaminophen (Tylenol 325mg Tab) 650 mg PO Q6 PRN PRN Reason: Fever >100.4 F Apixaban (Eliquis) 5 mg PO BID [facility]; Protocol Docusate Sodium (Colace) 200 mg PO HS [facility] Enoxaparin Sodium (Lovenox) 40 mg SC DAILY [facility]; Protocol Ergocalciferol (Drisdol 50,000 Intl Units Cap) cap PO QD7 [facility] Furosemide (Lasix) 40 mg PO ONCE ONE Stop: 12/23/18 22:17 Gabapentin (Neurontin) 100 mg PO HS [facility] Ketorolac Tromethamine (Toradol) 15 mg IVP Q6 PRN PRN Reason: Pain, moderate (4-7) Metoprolol Tartrate (Lopressor) 25 mg PO BID [facility] Physical Exam - Constitutional Appears: No Acute Distress - Head Exam Head Exam: ATRAUMATIC, NORMOCEPHALIC - Eye Exam Eye Exam: EOMI, Normal appearance Pupil Exam: PERRL - ENT Exam ENT Exam: Mucous Membranes Moist - Respiratory Exam Respiratory Exam: NORMAL BREATHING PATTERN - Cardiovascular Exam Cardiovascular Exam: REGULAR RHYTHM - GI/Abdominal Exam GI & Abdominal Exam: Normal Bowel Sounds, Soft. absent: Tenderness - Exam Additional comments: right sided scrotal tenderness - Extremities Exam Extremities exam: Positive for: normal capillary refill Additional comments: r groin mild TTP, surgical incision clean dry intact - Neurological Exam Neurological exam: Alert, CN II-XII Intact, Oriented x3 - Psychiatric Exam Psychiatric exam: Normal Affect, Normal Mood - Skin Skin Exam: Dry, Intact, Warm Results - Vital Signs Recent Vital Signs: Last Vital Signs Temp 98.7 F 12/23/18 17:45 Pulse 126 H 12/23/18 20:46 Resp 20 12/23/18 17:45 BP 129/86 12/23/18 20:49 Pulse Ox 100 12/23/18 20:59 - Labs Result Diagrams: 12/24/18 04:30 12/24/18 04:30 Labs: Laboratory Results - last 24 hr 12/23/18 12/23/18 19:23 19:23 WBC 3.3 L RBC 3.97 L Hgb 13.1 Hct 39.4 MCV 99.1 H MCH 32.9 H MCHC 33.2 RDW 15.2 H Plt Count 208 MPV 8.0 Neut % (Auto) 70.4 Lymph % (Auto) 18.0 L [place] % (Auto) 8.0 Eos % (Auto) 1.8 Baso % (Auto) 1.8 Neut # (Auto) 2.3 Lymph # (Auto) 0.6 L [place] # (Auto) 0.3 Eos # (Auto) 0.1 Baso # (Auto) 0.1 Sodium 137 Potassium 3.6 Chloride 100 Carbon Dioxide 26 Anion Gap 15 BUN 7 L Creatinine 0.6 L Est GFR ( Amer) > 60 Est GFR (Non-Af Amer) > 60 Random Glucose 94 Calcium 9.1 Troponin I 0.0270 NT-Pro-B Natriuret Pep 961 H Assessment & Plan - Assessment and Plan (Free Text) Assessment: 78M who presents with r groin pain Plan: -CT abd/pelvis shows post op changes (see full report) -pain control with Neurotin -if pain continues recommend pain management referral -No surgical intervention needed at this time -Medical management as per primary -Discussed with Dr. Brannon Solano PGY2 - Date & Time Date: 12/24/18 Time: 00:29 <Dominik South - Last Filed: 12/26/18 10:53> History of Present Illness - History of Present Illness History of Present Illness: Patient was seen and examined at the bedside. Agree with resident's note above. States that right groin pain is much better today. Physical Exam - GI/Abdominal Exam Additional comments: soft, very mildly tender in the right groin, ND, BS+, no rebound, no guarding, incision clean, healing well, no erythema, no drainage Results - Vital Signs Recent Vital Signs: Last Vital Signs Temp 97.9 F 12/25/18 13:04 Pulse 110 H 12/25/18 13:04 Resp 20 12/25/18 13:04 BP 110/77 12/25/18 13:04 Pulse Ox 95 12/25/18 13:04 - Labs Result Diagrams: 12/24/18 04:30 12/24/18 04:30 - Imaging and Cardiology CT scan - abdomen Status: Image reviewed by me, Report reviewed by me Assessment & Plan - Assessment and Plan (Free Text) Plan: - No general surgery intervention at present time - Continue care as per medical team - General surgery will sign off - Please re-consult as needed
[2018-12-23] MEDS ORDERED: Iohexol 300 100 ML IJ ONE (23:16)
[2018-12-23] MEDS ORDERED: Sodium Chloride 0.9% 50 ML IV ONE (23:17)
[2018-12-24 06:38] LABS: BASO # 0.1 K/uL (0.0-0.2); EOS % 0.7 % (0.0-4.0); HEMOGLOBIN 12.5 g/dL (12.0-18.0); LYMPH # 0.7 K/uL (1.0-4.3); LYMPH % 22.3 % (20.0-40.0); MEAN CELL VOLUME 97.7 fl (80.0-94.0); MEAN CORPUSCULAR HEMOGLOBIN 32.9 pg (27.0-31.0); MEAN CORPUSCULAR HGB CONC 33.7 g/dL (33.0-37.0); MONO # 0.4 K/uL (0.0-0.8); MONO % 11.5 % (0.0-10.0); NEUT # 2.1 K/uL (1.8-7.0); NEUT % 63.5 % (50.0-75.0); NRBC % 0.1 % (0.0-0.0); RBC 3.81 Mil/uL (4.40-5.90); RED CELL DISTRIBUTION WIDTH 15.7 % (11.5-14.5); WHITE BLOOD COUNT 3.3 K/uL (4.8-10.8)
[2018-12-24 06:54] LABS: BLOOD UREA NITROGEN 7 mg/dl (9-20); GFR NON-AFRICAN AMERICAN > 60
[2018-12-24] MEDS ORDERED: Ergocalciferol 50,000 Intl Units Cap PO SCH (07:30)
--- NOTE | 2018-12-24 08:23 | CT ---
Date of service: 12/23/2018 PROCEDURE: CT Abdomen and Pelvis with contrast HISTORY: extend down mid thigh/groin pain COMPARISON: 10/30/2018 TECHNIQUE: Contrast dose: Radiation dose: Total exam DLP = 496.59 mGy-cm. This CT exam was performed using one or more of the following dose reduction techniques: Automated exposure control, adjustment of the mA and/or kV according to patient size, and/or use of iterative reconstruction technique. FINDINGS: LOWER THORAX: Severe cardiomegaly. Bibasilar subsegmental atelectatic changes. Dilated inferior vena cava suggestive of right heart compromise. LIVER: Fatty liver. No gross lesion or ductal dilatation. GALLBLADDER AND BILE DUCTS: Unremarkable. PANCREAS: Unremarkable. No gross lesion or ductal dilatation. SPLEEN: Unremarkable. ADRENALS: Unremarkable. No mass. KIDNEYS AND URETERS: Unremarkable. No hydronephrosis. No solid mass. VASCULATURE: Unremarkable. No aortic aneurysm. No aortic atherosclerotic calcification or mural plaque present. BOWEL: Colonic diverticulosis. No obstruction. No gross mural thickening. APPENDIX: Normal appendix. PERITONEUM: Unremarkable. No free fluid. No free air. LYMPH NODES: Unremarkable. No enlarged lymph nodes. BLADDER: Multiple bladder diverticula. Bladder distention. REPRODUCTIVE: Prostate enlargement. BONES: No acute fracture. OTHER FINDINGS: Interval anasarca. IMPRESSION: Interval development of mild anasarca. Otherwise no change.
--- NOTE | 2018-12-24 08:38 | RAD ---
Date of service: 12/23/2018 HISTORY: cough COMPARISON: No prior. TECHNIQUE: Chest PA and lateral views FINDINGS: LUNGS: No active pulmonary disease. PLEURA: No significant pleural effusion identified. No pneumothorax apparent. CARDIOVASCULAR: No aortic atherosclerotic calcification present. Cardiomegaly. No pulmonary vascular congestion. OSSEOUS STRUCTURES: No significant abnormalities. VISUALIZED UPPER ABDOMEN: Normal. OTHER FINDINGS: None. IMPRESSION: Cardiomegaly.
[2018-12-24] MEDS ORDERED: Enoxaparin 40 mg Syringe SC SCH (09:00)
--- NOTE | 2018-12-24 14:20 | CP.PCM.DIS ---
<[place] - Last Filed: 12/24/18 14:23> Provider - Provider Date of Admission: 12/23/18 20:40 Attending physician: Stone Alvarez Consults: 12/23/18 19:46 Surgery [General Surgery Consult] Stat Comment: Consulting Provider: Dominik South Consulting Physician: Dominik South Reason for Consult: right leg pain and swelling after hernia surgery 12/24/18 01:10 Case Management Referral Routine Comment: lives alone (no family)/ homemaker referral Physician Instructions: Reason For Exam: lives alone (no family)/ homemaker referral Reason for Referral: Discharge Planning Social Work Referral Routine Comment: lives alone (no family)/ homemaker referral Physician Instructions: Reason For Exam: lives alone (no family)/ homemaker referral Time Spent in preparation of Discharge (in minutes): 30 Diagnosis - Discharge Diagnosis (1) Atrial fibrillation with RVR Status: Chronic Hospital Course - Lab Results Lab Results: Most Recent Lab Values WBC 3.3 K/uL (4.8-10.8) L 12/24/18 04:30 RBC 3.81 Mil/uL (4.40-5.90) L 12/24/18 04:30 Hgb 12.5 g/dL (12.0-18.0) 12/24/18 04:30 Hct 37.2 % (35.0-51.0) 12/24/18 04:30 MCV 97.7 fl (80.0-94.0) H 12/24/18 04:30 MCH 32.9 pg (27.0-31.0) H 12/24/18 04:30 MCHC 33.7 g/dL (33.0-37.0) 12/24/18 04:30 RDW 15.7 % (11.5-14.5) H 12/24/18 04:30 Plt Count 213 K/uL (130-400) 12/24/18 04:30 MPV 8.0 fl (7.2-11.7) 12/24/18 04:30 Neut % (Auto) 63.5 % (50.0-75.0) 12/24/18 04:30 Lymph % (Auto) 22.3 % (20.0-40.0) 12/24/18 04:30 [place] % (Auto) 11.5 % (0.0-10.0) H 12/24/18 04:30 Eos % (Auto) 0.7 % (0.0-4.0) 12/24/18 04:30 Baso % (Auto) 2.0 % (0.0-2.0) 12/24/18 04:30 Neut # (Auto) 2.1 K/uL (1.8-7.0) 12/24/18 04:30 Lymph # (Auto) 0.7 K/uL (1.0-4.3) L 12/24/18 04:30 [place] # (Auto) 0.4 K/uL (0.0-0.8) 12/24/18 04:30 Eos # (Auto) 0.0 K/uL (0.0-0.7) 12/24/18 04:30 Baso # (Auto) 0.1 K/uL (0.0-0.2) 12/24/18 04:30 Sodium 136 mmol/l (132-148) 12/24/18 04:30 Potassium 3.9 MMOL/L (3.6-5.0) 12/24/18 04:30 Chloride 98 mmol/L (98-107) 12/24/18 04:30 Carbon Dioxide 28 mmol/L (22-30) 12/24/18 04:30 Anion Gap 14 (10-20) 12/24/18 04:30 BUN 7 mg/dl (9-20) L 12/24/18 04:30 Creatinine 0.6 mg/dl (0.8-1.5) L 12/24/18 04:30 Est GFR ( Amer) > 60 12/24/18 04:30 Est GFR (Non-Af Amer) > 60 12/24/18 04:30 Random Glucose 96 mg/dL (75-110) 12/24/18 04:30 Calcium 9.0 mg/dL (8.4-10.2) 12/24/18 04:30 Troponin I 0.0270 ng/mL (0.00-0.120) 12/23/18 19:23 NT-Pro-B Natriuret Pep 961 pg/ml (0-900) H 12/23/18 19:23 - Hospital Course Hospital Course: 78 YO Male with PMHx of Atrial Fibrillation, CHF due to valvular disease was admitted for a fib with RVR, CHF and post-op pain. A fib with RVR -uncontrolled rate 2/2 to med non-compliance -Dose has been increased to metroprolol tartrate 50mg BID - C/ W Eliquis CHF -acute on chronic -elevated pro-bnp -CXR sig for increase congestion (when compared to previous CXR) -Echo (08/2018) sig for EF 50-55%; large septum secundum, severe TR and MR, large R and L atrium. - IV lasix was given in house - Patient will be discharged on Lasix 20 PO daily Post-op pain -Pelvic CT did not show any abnormalities other then mild anasarca which is secondary to CHF - C/W pain meds Discharge Exam - Head Exam Head Exam: ATRAUMATIC, NORMOCEPHALIC - Eye Exam Eye Exam: Normal appearance Discharge Plan - Discharge Medications Prescriptions: Apixaban [Eliquis] 5 mg PO BID #60 tab Furosemide [Lasix] 20 mg PO DAILY #30 tablet Metoprolol Tartrate 50 mg PO BID #60 tablet - Follow Up Plan Condition: GUARDED Instructions: Heart Failure (DC), Heart Failure (GEN), Pacemaker (DC), Pacemaker (GEN), Pulmonary Edema (DC), Pulmonary Edema (GEN), Ascites (DC), Ascites (GEN) Additional Instructions: Follow up w/ PMD in 2-3 days if symptoms worsen or reoccur please return to the clinic Referrals: [facility] [Outside] <Milka Olivares - Last Filed: 12/24/18 15:25> Provider - Provider Date of Admission: 12/23/18 20:40 Attending physician: Stone Alvarez Consults: 12/23/18 19:46 Surgery [General Surgery Consult] Stat Comment: Consulting Provider: Dominik oSuth Consulting Physician: Dominik South Reason for Consult: right leg pain and swelling after hernia surgery 12/24/18 01:10 Case Management Referral Routine Comment: lives alone (no family)/ homemaker referral Physician Instructions: Reason For Exam: lives alone (no family)/ homemaker referral Reason for Referral: Discharge Planning Social Work Referral Routine Comment: lives alone (no family)/ homemaker referral Physician Instructions: Reason For Exam: lives alone (no family)/ [facility] Course - Lab Results Lab Results: Most Recent Lab Values WBC 3.3 K/uL (4.8-10.8) L 12/24/18 04:30 RBC 3.81 Mil/uL (4.40-5.90) L 12/24/18 04:30 Hgb 12.5 g/dL (12.0-18.0) 12/24/18 04:30 Hct 37.2 % (35.0-51.0) 12/24/18 04:30 MCV 97.7 fl (80.0-94.0) H 12/24/18 04:30 MCH 32.9 pg (27.0-31.0) H 12/24/18 04:30 MCHC 33.7 g/dL (33.0-37.0) 12/24/18 04:30 RDW 15.7 % (11.5-14.5) H 12/24/18 04:30 Plt Count 213 K/uL (130-400) 12/24/18 04:30 MPV 8.0 fl (7.2-11.7) 12/24/18 04:30 Neut % (Auto) 63.5 % (50.0-75.0) 12/24/18 04:30 Lymph % (Auto) 22.3 % (20.0-40.0) 12/24/18 04:30 [place] % (Auto) 11.5 % (0.0-10.0) H 12/24/18 04:30 Eos % (Auto) 0.7 % (0.0-4.0) 12/24/18 04:30 Baso % (Auto) 2.0 % (0.0-2.0) 12/24/18 04:30 Neut # (Auto) 2.1 K/uL (1.8-7.0) 12/24/18 04:30 Lymph # (Auto) 0.7 K/uL (1.0-4.3) L 12/24/18 04:30 [place] # (Auto) 0.4 K/uL (0.0-0.8) 12/24/18 04:30 Eos # (Auto) 0.0 K/uL (0.0-0.7) 12/24/18 04:30 Baso # (Auto) 0.1 K/uL (0.0-0.2) 12/24/18 04:30 Sodium 136 mmol/l (132-148) 12/24/18 04:30 Potassium 3.9 MMOL/L (3.6-5.0) 12/24/18 04:30 Chloride 98 mmol/L (98-107) 12/24/18 04:30 Carbon Dioxide 28 mmol/L (22-30) 12/24/18 04:30 Anion Gap 14 (10-20) 12/24/18 04:30 BUN 7 mg/dl (9-20) L 12/24/18 04:30 Creatinine 0.6 mg/dl (0.8-1.5) L 12/24/18 04:30 Est GFR ( Amer) > 60 12/24/18 04:30 Est GFR (Non-Af Amer) > 60 12/24/18 04:30 Random Glucose 96 mg/dL (75-110) 12/24/18 04:30 Calcium 9.0 mg/dL (8.4-10.2) 12/24/18 04:30 Troponin I 0.0270 ng/mL (0.00-0.120) 12/23/18 19:23 NT-Pro-B Natriuret Pep 961 pg/ml (0-900) H 12/23/18 19:23 Attending/Attestation - Attestation I have personally seen and examined this patient.: Yes I have fully participated in the care of the patient.: Yes I have reviewed all pertinent clinical information, including history, physical exam and plan: Yes Notes (Text): Atrial Fibrillation, Chronic with RVR CHF, 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 IV Metoprolol given and PO Metoprolol started Pt laso restarted on anticoagulatioon on Eliquis. IV Lasix also started for CHF Pt's HR became controlled Leg edema improved ff up [facility] next week Wednesday
--- NOTE | 2018-12-24 18:58 | CP.PCM.PCO ---
Addendum Addendum: 12/24/18 18:46 Discharge order discontinued due to BP being 84/50 and HR 110s. Pt lives alone in his apt, reports he most probably would buy his meds tomorrow or Wednesday since his pharmacy is closed and has nobody to help him obtain them. Pt has agreed to stay until tomorrow.
[2018-12-25 08:20] VITALS: RESP 20
[2018-12-25 13:06] VITALS: BP 110/77; PULSE 110; TEMP 97.9; O2SAT 95
--- NOTE | 2018-12-25 16:40 | CP.PCM.DIS ---
Provider - Provider Date of Admission: 12/23/18 20:40 Attending physician: Stone Alvarez Primary care physician: [facility] Consults: 12/23/18 19:46 Surgery [General Surgery Consult] Stat Comment: Consulting Provider: Dominik South Consulting Physician: Dominik South Reason for Consult: right leg pain and swelling after hernia surgery 12/24/18 01:10 Case Management Referral Routine Comment: lives alone (no family)/ homemaker referral Physician Instructions: Reason For Exam: lives alone (no family)/ homemaker referral Reason for Referral: Discharge Planning Social Work Referral Routine Comment: lives alone (no family)/ homemaker referral Physician Instructions: Reason For Exam: lives alone (no family)/ homemaker referral Time Spent in preparation of Discharge (in minutes): 20 Diagnosis - Discharge Diagnosis (1) Atrial fibrillation with RVR Status: Chronic (2) 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 Priority: High (3) ASD secundum Status: Chronic Hospital Course - Lab Results Lab Results: Most Recent Lab Values WBC 3.3 K/uL (4.8-10.8) L 12/24/18 04:30 RBC 3.81 Mil/uL (4.40-5.90) L 12/24/18 04:30 Hgb 12.5 g/dL (12.0-18.0) 12/24/18 04:30 Hct 37.2 % (35.0-51.0) 12/24/18 04:30 MCV 97.7 fl (80.0-94.0) H 12/24/18 04:30 MCH 32.9 pg (27.0-31.0) H 12/24/18 04:30 MCHC 33.7 g/dL (33.0-37.0) 12/24/18 04:30 RDW 15.7 % (11.5-14.5) H 12/24/18 04:30 Plt Count 213 K/uL (130-400) 12/24/18 04:30 MPV 8.0 fl (7.2-11.7) 12/24/18 04:30 Neut % (Auto) 63.5 % (50.0-75.0) 12/24/18 04:30 Lymph % (Auto) 22.3 % (20.0-40.0) 12/24/18 04:30 [place] % (Auto) 11.5 % (0.0-10.0) H 12/24/18 04:30 Eos % (Auto) 0.7 % (0.0-4.0) 12/24/18 04:30 Baso % (Auto) 2.0 % (0.0-2.0) 12/24/18 04:30 Neut # (Auto) 2.1 K/uL (1.8-7.0) 12/24/18 04:30 Lymph # (Auto) 0.7 K/uL (1.0-4.3) L 12/24/18 04:30 [place] # (Auto) 0.4 K/uL (0.0-0.8) 12/24/18 04:30 Eos # (Auto) 0.0 K/uL (0.0-0.7) 12/24/18 04:30 Baso # (Auto) 0.1 K/uL (0.0-0.2) 12/24/18 04:30 Sodium 136 mmol/l (132-148) 12/24/18 04:30 Potassium 3.9 MMOL/L (3.6-5.0) 12/24/18 04:30 Chloride 98 mmol/L (98-107) 12/24/18 04:30 Carbon Dioxide 28 mmol/L (22-30) 12/24/18 04:30 Anion Gap 14 (10-20) 12/24/18 04:30 BUN 7 mg/dl (9-20) L 12/24/18 04:30 Creatinine 0.6 mg/dl (0.8-1.5) L 12/24/18 04:30 Est GFR ( Amer) > 60 12/24/18 04:30 Est GFR (Non-Af Amer) > 60 12/24/18 04:30 Random Glucose 96 mg/dL (75-110) 12/24/18 04:30 Calcium 9.0 mg/dL (8.4-10.2) 12/24/18 04:30 Troponin I 0.0270 ng/mL (0.00-0.120) 12/23/18 19:23 NT-Pro-B Natriuret Pep 961 pg/ml (0-900) H 12/23/18 19:23 - Hospital Course Hospital Course: Atrial Fibrillation, Chronic with RVR CHF, 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 IV Metoprolol given and PO Metoprolol started Pt was also restarted on anticoagulatioon on Eliquis. IV Lasix given for CHF Pt's HR became controlled Leg edema improved ff up Clinic in 2 days Discharge Exam - Head Exam Head Exam: ATRAUMATIC, NORMAL INSPECTION, NORMOCEPHALIC - Eye Exam Eye Exam: EOMI, Normal appearance Pupil Exam: NORMAL ACCOMODATION - ENT Exam ENT Exam: Mucous Membranes Moist, Normal External Ear Exam - Neck Exam Neck exam: Full Rom - Respiratory Exam Respiratory Exam: NORMAL BREATHING PATTERN. absent: Rales, Respiratory Distress - Cardiovascular Exam Cardiovascular Exam: Irregular Rhythm, +S1, +S2 - GI/Abdominal Exam GI & Abdominal Exam: Normal Bowel Sounds, Soft. absent: Tenderness - Extremities Exam Extremities exam: full ROM, normal capillary refill, pedal edema, pedal pulses present - Back Exam Back exam: FULL ROM. absent: CVA tenderness (L), CVA tenderness (R) - Neurological Exam Neurological exam: Alert, CN II-XII Intact, Oriented x3, Reflexes Normal - Psychiatric Exam Psychiatric exam: Normal Affect, Normal Mood - Skin Skin Exam: Dry, Normal Color, Warm Discharge Plan - Discharge Medications Prescriptions: Apixaban [Eliquis] 5 mg PO BID #60 tab Furosemide [Lasix] 20 mg PO DAILY #30 tablet Metoprolol Succinate XL [Toprol XL] 50 mg PO DAILY #30 tab Metoprolol Tartrate 50 mg PO BID #60 tablet - Follow Up Plan Condition: IMPROVED Disposition: HOME/ ROUTINE Instructions: Heart Failure (DC), Heart Failure (GEN), Pacemaker (DC), Pacemaker (GEN), Pulmonary Edema (DC), Pulmonary Edema (GEN), Ascites (DC), Ascites (GEN) Additional Instructions: * Follow up w/ PMD in 2-3 days Referrals: [facility] [Outside] Clinical Quality Measures - CQM - Heart Failure Ejection Fraction: 40 % or Greater Left Ventricular Function to be assessed after discharge: Yes ELLIS Inhibitor Prescribed: No Contraindication/Reason for not providing: BP low Beta-Grace Prescribed: Metoprolol Succinate Will be discharged to: Home Follow Up Date (must be within 7 days from discharge): 12/27/18 Follow Up Time: 10:00 - Date & Time of Discharge Summary Date of Discharge Summary: 12/25/18 Time of Discharge Summary: 16:44
== END 2018-12-25 17:55 | disposition home or self-care (01) ==
LOC: H.ER 17:41 → H.ERHOLD 20:40 → INTOOBSV 20:40 → H.TEL 12-24 00:13
PROVIDERS: ADMIT Internal Medicine; ATTEND Internal Medicine
DX: I11.0 Hypertensive heart disease with heart failure (principal); I50.33 Acute on chronic diastolic (congestive) heart failure; I48.2 Chronic atrial fibrillation; I07.1 Rheumatic tricuspid insufficiency; Q21.1 Atrial septal defect; J45.909 Unspecified asthma, uncomplicated; Z91.14 Patient's other noncompliance with medication regimen; Z79.01 Long term (current) use of anticoagulants
CPT/HCPCS: 36415; 71046; 74177; 80048; 83880; 84484; 85025; 96374; 96375; 96376; 99285; G0378; J1940; Q9966; Q9967